=== PATIENT | female | born 1950 | race Caucasian/White ===

== ENCOUNTER 2019-06-16 09:13 | Day surgery (SDC) | payer MEDICARE ==
[2019-06-15 09:02] VITALS: BMI 32.2
[~2019-06-16 09:13] MED LIST: LACTATED RINGERS 1,000 ML IV SCH
[2019-06-16 09:49] VITALS: RESP 16; TEMP 98.5
[2019-06-16] MEDS ORDERED: LIDOCAINE 1% 20 ML VIAL (10MG/ML) FOR IV START INTRADERMA ONE (09:51)
[2019-06-16] MEDS ORDERED: hydrALAZINE HCL 20 MG/ML 1 ML VIAL ONE (10:03)
[2019-06-16] MEDS ORDERED: PROPOFOL 10 MG/ML 20 ML VIAL IV ONE (10:03)
--- NOTE | 2019-06-16 11:37 | P.PCN ---
Date of Procedure: 06/16/19 Description of Procedure: BRIEF HISTORY: Patient is a 68-year-old pleasant female scheduled for an elective colonoscopy as a part of history of polyps and family history of colon cancer. The patient reports family history of colon cancer in her mother at the age of 66. Reports polyps on last colonoscopy 6 years ago. She reports bowel movements have been loose at baseline since receiving radiation therapy for endometrial cancer. PROCEDURE PERFORMED: Colonoscopy with polypectomy. PREOPERATIVE DIAGNOSIS: History of colon polyps, family history of colon cancer. ESTIMATED BLOOD LOSS: Minimal. IV sedation per Anesthesia. PROCEDURE: After informed consent was obtained, the patient, was brought into the endoscopy unit. IV sedation was administered by Anesthesia under continuous monitoring. Digital rectal examination was normal. Initially the Olympus CF-190 flexible video colonoscope was then inserted in the rectum, gradually advanced into the cecum without any difficulty. Careful examination was performed as the scope was gradually being withdrawn. Ileocecal valve and the appendiceal orifice were visualized and appeared normal. Prep was excellent. Mucosa of the cecum, ascending colon, transverse colon, descending colon, sigmoid colon, and rectum appeared normal. 2 diminutive cecal polyps removed with forceps polypectomy measuring 2 mm in size. 5 polyps removed from the transverse colon ranging in size from 2 mm to 11 mm, one removed in piecemeal fashion, WITH cold snare polypectomy. 5 descending colon polyps measuring in size from 2 mm to 8 mm removed with cold snare polypectomy. 2 sigmoid polyps measuring 6 mm and 8 mm removed with cold snare polypectomy and hot snare polypectomy respectively. The patient tolerated the procedure well. IMPRESSION: 14 colonic polyps measuring in size from 2 mm to 11 mm removed from the cecum, transverse colon, descending colon and sigmoid colon (please see body of report for full details). RECOMMENDATIONS: Findings of this examination were discussed with the patient and her daughter. Okay to resume diet. Hold any anticoagulation for the next 48 hours okay to resume other medications. Would recommend repeating colonoscopy in one year given piecemeal resection of colonic polyp.
[2019-06-16 12:20] VITALS: PULSE 56
[2019-06-16 12:40] VITALS: BP 169/67
== END 2019-06-16 13:24 | disposition home or self-care (01) ==
LOC: ORWHC2ENDO 09:13
PROVIDERS: ATTEND Internal Medicine
DX: D12.0 Benign neoplasm of cecum (principal); D12.4 Benign neoplasm of descending colon; D12.3 Benign neoplasm of transverse colon; Z86.010 Personal history of colon polyps; Z80.0 Family history of malignant neoplasm of digestive organs; C54.1 Malignant neoplasm of endometrium; I10 Essential (primary) hypertension; K21.9 Gastro-esophageal reflux disease without esophagitis; Z88.1 Allergy status to other antibiotic agents; Z88.5 Allergy status to narcotic agent; Z88.8 Allergy status to other drugs, medicaments and biological substances; Z79.82 Long term (current) use of aspirin; Z79.899 Other long term (current) drug therapy
CPT/HCPCS: 88305; 45380; 45385; J0360; J2704

== ENCOUNTER 2022-01-24 09:08 | Day surgery (SDC) | payer MEDICARE ==
[~2022-01-24 09:08] MED LIST changes: +ALPRAZolam 0.25 MG TAB PO PRN; -LACTATED RINGERS 1,000 ML IV SCH
[2022-01-24 09:43] LABS: Mean Platelet Volume 6.9; Platelet Count 140 k/uL (150-450)
[2022-01-24 10:00] VITALS: PULSE 60; TEMP 97.8
[2022-01-24 10:06] LABS: INR 1.1 (<1.2)
[2022-01-24 10:22] VITALS: BP 143/62; RESP 18
--- NOTE | 2022-01-24 10:44 | CT ---
EXAMINATION TYPE: CT discontinued procedure DATE OF EXAM: 01/24/2022 COMPARISON: None HISTORY: Liver Biopsy CT DLP: 437 mGycm Automated exposure control for dose reduction was used. FINDINGS: Preliminary imaging demonstrated diffuse ascites. The procedure and therefore could not be performed but was discontinued. IMPRESSION: DISCONTINUED PROCEDURE.
== END 2022-01-24 11:11 | disposition home or self-care (01) ==
LOC: RADPROMAIN 09:08
PROVIDERS: ATTEND Surgery
DX: R18.8 Other ascites (principal); K74.60 Unspecified cirrhosis of liver
CPT/HCPCS: 36415; 76380; 85049; 85610

== ENCOUNTER 2022-02-08 08:53 | Day surgery (SDC) | payer MEDICARE ==
[2022-02-08 09:11] VITALS: RESP 16; TEMP 97.5
[2022-02-08 10:04] LABS: INR 1.2 (<1.2); Prothrombin Time 12.2 sec (9.0-12.0)
[2022-02-08 10:23] LABS: Platelet Count 99 k/uL (150-450)
--- NOTE | 2022-02-08 12:25 | US ---
Ultrasound-guided paracentesis. DATE OF EXAM: 02/08/2022 CLINICAL HISTORY: Ascites The procedure was discussed with the patient. The risks, complications, benefits, and alternatives we re discussed and any questions were answered. Informed consent was obtained. The patient was placed s upine on the ultrasound table and prepped and draped in the usual sterile fashion. All elements of maximal barrier technique were utilized. Under ultrasound guidance, access into the right lower quadrant was obtained, via the paracentesis catheter system and direct ultrasound guidanc e. Approximately 9 liters of straw-colored fluid was removed. The patient was stable throughout the proc edure and remained stable upon discharge from Department of Radiology. IMPRESSION: Successful paracentesis under ultrasound guidance.
--- NOTE | 2022-02-08 12:26 | US ---
EXAMINATION TYPE: US biopsy liver DATE OF EXAM: 02/08/2022 COMPARISON: NONE HISTORY: Liver cirrhosis The procedure was explained to the patient. The risks, complications, benefits, and alternatives wer e discussed and any questions were answered. Informed consent was obtained. Patient was placed supi ne on the ultrasound table and prepped and draped in the usual sterile fashion. All elements of maximal barrier and sterile technique utilized. Utilizing ultrasound guidance, an 18 gauge core biopsy needle access into the left lobe of the liver was achieved and a single 18 gauge core sample was obtained. The patient was stable throughout the procedure and remained stable upon discharge. IMPRESSION: 1. Successful ultrasound-guided core biopsy of the liver.
[2022-02-08] MEDS: ALBUMIN HUMAN 25% 50 ML in EMPTY BAG 1 BAG IVPB SCH ×4 (12:28→13:23)
[2022-02-08 14:24] VITALS: PULSE 60
[2022-02-08 15:39] VITALS: BP 104/51
== END 2022-02-08 15:45 | disposition home or self-care (01) ==
LOC: RADPROMAIN 08:53 → EDSTATUS 09:00 → RADPROMAIN 15:45
PROVIDERS: ATTEND Surgery
DX: K74.60 Unspecified cirrhosis of liver (principal); R18.8 Other ascites; Z88.1 Allergy status to other antibiotic agents
CPT/HCPCS: 85049; 85610; 88313; 88307; 36415; 47000; 49083; P9047; 76942

== ENCOUNTER 2023-05-09 19:41 | Inpatient (IN) | payer MEDICARE ==
[2023-05-09] MEDS ORDERED: SODIUM CHLORIDE 0.9% 1,000 ML IV STA (20:29)
--- NOTE | 2023-05-09 20:51 | ED ---
Weakness HPI - General Chief complaint: Weakness Stated complaint: Dehydrated Time Seen by Provider: 05/09/23 20:29 Source: family, RN notes reviewed, old records reviewed, Caregiver Mode of arrival: ambulatory Limitations: no limitations - History of Present Illness Initial comments: This is a 70-year-old female to the emergency department presents today for evaluation of weakness dehydration not febrile, family concerned of elevated ammonia level is not taking medications at home as directed. Patient's been acting increasingly weak and appropriate per family and patient is very weak here in the ER not contribute to history history obtained from family at bedside MD Complaint: generalized weakness -: days(s) Location: generalized Severity: moderate Severity scale (1-10): 7 Quality: tingling Consistency: constant Improves with: none Worsens with: none Context: recent illness, history of similar Associated Symptoms: denies other symptoms - Related Data Home Medications Medication Instructions Recorded Confirmed Omeprazole [PriLOSEC] 20 mg PO DAILY 06/15/19 05/09/23 Ferrous Sulfate [Feosol] 325 mg PO MOWEFR 01/10/22 05/09/23 Metoprolol Tartrate [Lopressor] 50 mg PO DAILY 01/10/22 05/09/23 Spironolactone [Aldactone] 100 mg PO DAILY 01/10/22 05/09/23 Furosemide [Lasix] 40 mg PO DAILY 05/09/23 05/09/23 Lactulose 20 gm PO TID PRN 05/09/23 05/09/23 Loperamide [Imodium] 2 mg PO DAILY 05/09/23 05/09/23 Magnesium 200 mg PO DAILY 05/09/23 05/09/23 Allergies Allergy/AdvReac Type Severity Reaction Status Date / Time hydromorphone [From Dilaudid] Allergy Severe Rash/Hives Verified 05/09/23 22:12 cephalexin [From Keflex] Allergy Rash/Hives Verified 05/09/23 22:12 guaifenesin [From Entex LA] Allergy Rash/Hives Verified 05/09/23 22:12 levofloxacin [From Levaquin] Allergy Rash/Hives Verified 05/09/23 22:12 phenylephrine [From Entex LA] Allergy Rash/Hives Verified 05/09/23 22:12 phenylpropanolamine Allergy Rash/Hives Verified 05/09/23 22:12 [From Entex LA] Review of Systems ROS Statement: Those systems with pertinent positive or pertinent negative responses have been documented in the HPI. ROS Other: All systems not noted in ROS Statement are negative. Past Medical History Past Medical History: Cancer, GERD/Reflux, Hypertension, Liver Disease Additional Past Medical History / Comment(s): feet swelling, hx. endometrial cancer 2001, frequent diarrhea for months, hx. colon polyps, slight murmur per pt-no tx. for History of Any Multi-Drug Resistant Organisms: None Reported Past Surgical History: Cholecystectomy, Hysterectomy, Joint Replacement, Orthopedic Surgery Additional Past Surgical History / Comment(s): colonoscopies, maryellen. hip replaced, left wrist surg., left foot surg., arthroscopy left knee, right knee surg, large volume paracentesis Past Anesthesia/Blood Transfusion Reactions: No Reported Reaction Additional Past Anesthesia/Blood Transfusion Reaction / Comment(s): usually slow to wake up Smoking Status: Never smoker Past Alcohol Use History: None Reported Past Drug Use History: None Reported - Past Family History Mother Family Medical History: No Reported History Father Family Medical History: Coronary Artery Disease (CAD) General Exam Limitations: no limitations, altered mental status General appearance: alert, in no apparent distress, lethargic Head exam: Present: atraumatic, normocephalic, normal inspection Eye exam: Present: normal appearance, PERRL, EOMI. Absent: scleral icterus, co njunctival injection, periorbital swelling ENT exam: Present: normal exam, mucous membranes dry Neck exam: Present: normal inspection. Absent: tenderness, meningismus, lymphadenopathy Respiratory exam: Present: normal lung sounds bilaterally. Absent: respiratory distress, wheezes, rales, rhonchi, stridor Cardiovascular Exam: Present: regular rate, normal rhythm, normal heart sounds. Absent: systolic murmur, diastolic murmur, rubs, gallop, clicks GI/Abdominal exam: Present: soft, normal bowel sounds. Absent: distended, tenderness, guarding, rebound, rigid Extremities exam: Present: normal inspection, full ROM, normal capillary refill. Absent: tenderness, pedal edema, joint swelling, calf tenderness Back exam: Present: normal inspection Neurological exam: Present: alert, oriented X3, CN II-XII intact Psychiatric exam: Present: normal affect, normal mood Skin exam: Present: warm, dry, intact, normal color. Absent: rash Course Vital Signs 07/20/23 07/20/23 07/21/23 19:55 20:29 00:00 Temperature 98.1 F Pulse Rate 77 81 Pulse Rate [ 80 Supine Pulse Oximetery] Respiratory 16 16 Rate Blood Pressure 161/89 154/80 O2 Sat by Pulse 100 95 Oximetry 05/10/23 05/10/23 05/10/23 03:37 05:56 06:05 Temperature 97.9 F 97.9 F Pulse Rate 80 80 Pulse Rate [ Supine Pulse Oximetery] Respiratory 16 16 16 Rate Blood Pressure 105/50 105/50 O2 Sat by Pulse 100 100 Oximetry - Reevaluation(s) Reevaluation #1: 05/09/23 22:58 Medical record is reviewed Reevaluation #2: 05/09/23 22:59 Patient symptoms unchanged Reevaluation #3: 05/09/23 22:59 Patient informed of results and questions answered Reevaluation #4: 05/09/23 22:59 Was pt. sent in by a medical professional or institution? @ -no Did you speak to anyone other than the patient for history? @ -no Did you review nursing and triage notes? @ -agree Were old charts reviewed? @ -yes Differential Diagnosis? @ -prior EKG interpreted by me (3pts min.)? @ -yes X-rays interpreted by me (1pt min.)? @ -yes CT interpreted by me (1pt min.)? @ -no U/S interpreted by me (1pt. min.)? @ -no What testing was considered but not performed? (CT, X-rays, U/S, labs)? Why? @ -no What meds were considered but not given? Why? @ -no Did you discuss the management of the patient with other professionals? @ -no Did you reconcile home meds? @ -no Was smoking cessation discussed for >3mins.? @ -no Was critical care preformed (if so, how long)? @ -no Were there social determinants of health that impacted care today? How? (Homelessness, low income, unemployed, alcoholism, drug addiction, transportation, low edu. Level, literacy, decrease access to med. care, [facility], rehab)? @ -no Was there de-escalation of care discussed even if they declined? (Discuss DNR or withdrawal of care, Hospice)? @ -no What co-morbidities impacted this encounter? (DM, HTN, Smoking, COPD, CAD, Cancer, CVA, Hep., AIDS, mental health diagnosis, sleep apnea, morbid obesity)? @ -no Was patient admitted / discharged? @ -72 female not showing much improvement with hydration here in the ER. Patient does have liver disease elevated ammonia altered mental status weakness and dehydration. Patient will be admitted, no prior lab values will have nephrology consult secondary to kidney injury and monitoring of mental status Admitted Undiagnosed new problem with uncertain prognosis? @ -no Drug Therapy requiring intensive monitoring for toxicity (Heparin, Nitro, Insulin, Cardizem)? @ -no Were any procedures done? @ -no Diagnosis/symptom? @ -Weakness, dehydration Acute, or Chronic, or Acute on Chronic? @ -acute Uncomplicated (without systemic symptoms) or Complicated (systemic symptoms)? @ -complicated Side effects of treatment? @ -no Exacerbation, Progression, or Severe Exacerbation] @ -no Poses a threat to life or bodily function? @ -no Reevaluation #5: 05/09/23 22:59 Differential Altered Mental Status: Hypoglycemia, DKA, hypercapnia, ETOH, overdose, CO poisoning, trauma, myxedema coma, HTN encephalopathy, infection, encephalitis, psychosis, intercranial hemorrhage, hepatic encephalopathy, meningitis, CVA, this is not meant to be an all-inclusive list Differential Weakness: Hypoglycemia, shock, sepsis, hyponatremia, anemia, infection, NM, ETOH, adverse medicine reaction, overdose, stroke, this is not meant to be an all-inclusive list. - Consultations Consultation #1: Spoke with H regarding admission there agreeable EKG Findings - EKG Comments: EKG Findings:: EKG is sinus 66 NH 129 QRS 75 QTC 423 Medical Decision Making - Medical Decision Making 72 female not showing much improvement with hydration here in the ER. Patient does have liver disease elevated ammonia altered mental status weakness and dehydration. Patient will be admitted, no prior lab values will have nephrology consult secondary to kidney injury and monitoring of mental status - Lab Data Result diagrams: 05/13/23 11:23 05/14/23 05:28 Lab Results 05/09/23 05/09/23 05/09/23 Range/Units 19:45 19:45 19:45 WBC (3.8-10.6) k/uL RBC (3.80-5.40) m/uL Hgb (11.4-16.0) gm/dL Hct (34.0-46.0) % MCV (80.0-100.0) fL MCH (25.0-35.0) pg MCHC (31.0-37.0) g/dL RDW (11.5-15.5) % Plt Count (150-450) k/uL MPV Neutrophils % % Lymphocytes % % Monocytes % % Eosinophils % % Basophils % % Neutrophils # (1.3-7.7) k/uL Lymphocytes # (1.0-4.8) k/uL Monocytes # (0-1.0) k/uL Eosinophils # (0-0.7) k/uL Basophils # (0-0.2) k/uL Manual Slide Review Hypochromasia Poikilocytosis (manual PT 11.3 (9.0-12.0) sec INR 1.1 (<1.2) APTT 23.2 (22.0-30.0) sec Sodium 133 L (137-145) mmol/L Potassium 4.3 (3.5-5.1) mmol/L Chloride 104 (98-107) mmol/L Carbon Dioxide 19 L (22-30) mmol/L Anion Gap 10 mmol/L BUN 68 H (7-17) mg/dL Creatinine 2.23 H (0.52-1.04) mg/dL Est GFR (CKD-EPI)AfAm 25 (>60 ml/min/1.73 sqM) Est GFR (CKD-EPI)NonAf 21 (>60 ml/min/1.73 sqM) Glucose 135 H (74-99) mg/dL Plasma Lactic Acid Richard 1.5 (0.7-2.0) mmol/L Calcium 8.3 L (8.4-10.2) mg/dL Phosphorus 4.2 (2.5-4.5) mg/dL Magnesium 2.1 (1.6-2.3) mg/dL Total Bilirubin 0.8 (0.2-1.3) mg/dL AST 23 (14-36) U/L ALT 19 (4-34) U/L Alkaline Phosphatase 106 (38-126) U/L Ammonia 30 H (<30) umol/L Troponin I (0.000-0.034) ng/mL Total Protein 6.0 L (6.3-8.2) g/dL Albumin 2.9 L (3.5-5.0) g/dL 05/09/23 05/09/23 Range/Units 19:45 20:45 WBC 5.1 (3.8-10.6) k/uL RBC 3.52 L (3.80-5.40) m/uL Hgb 9.9 L (11.4-16.0) gm/dL Hct 30.0 L (34.0-46.0) % MCV 85.1 (80.0-100.0) fL MCH 28.1 (25.0-35.0) pg MCHC 33.1 (31.0-37.0) g/dL RDW 15.4 (11.5-15.5) % Plt Count 94 L (150-450) k/uL MPV 7.6 Neutrophils % 81 % Lymphocytes % 10 % Monocytes % 7 % Eosinophils % 1 % Basophils % 0 % Neutrophils # 4.1 (1.3-7.7) k/uL Lymphocytes # 0.5 L (1.0-4.8) k/uL Monocytes # 0.3 (0-1.0) k/uL Eosinophils # 0.1 (0-0.7) k/uL Basophils # 0.0 (0-0.2) k/uL Manual Slide Review Performed Hypochromasia Slight Poikilocytosis (manual Present PT (9.0-12.0) sec INR (<1.2) APTT (22.0-30.0) sec Sodium (137-145) mmol/L Potassium (3.5-5.1) mmol/L Chloride (98-107) mmol/L Carbon Dioxide (22-30) mmol/L Anion Gap mmol/L BUN (7-17) mg/dL Creatinine (0.52-1.04) mg/dL Est GFR (CKD-EPI)AfAm (>60 ml/min/1.73 sqM) Est GFR (CKD-EPI)NonAf (>60 ml/min/1.73 sqM) Glucose (74-99) mg/dL Plasma Lactic Acid Richard (0.7-2.0) mmol/L Calcium (8.4-10.2) mg/dL Phosphorus (2.5-4.5) mg/dL Magnesium (1.6-2.3) mg/dL Total Bilirubin (0.2-1.3) mg/dL AST (14-36) U/L ALT (4-34) U/L Alkaline Phosphatase (38-126) U/L Ammonia (<30) umol/L Troponin I <0.012 (0.000-0.034) ng/mL Total Protein (6.3-8.2) g/dL Albumin (3.5-5.0) g/dL Disposition Clinical Impression: Dehydration, Weakness, Hyperammonemia, Altered mental status, Acute kidney injury, Ascites, Cirrhosis of liver Disposition: ADMITTED IP TO THIS HOSP Condition: Fair Is patient prescribed a controlled substance at d/c from ED?: No Time of Disposition: 23:00
[2023-05-09 21:19] LABS: Lactic Acid, Venous 1.5 mmol/L (0.7-2.0)
[2023-05-09 21:20] LABS: ALT 19 U/L (4-34); AST 23 U/L (14-36); African American GFR (CKD) 25 (>60 ml/min/1.73 sqM); Albumin 2.9 g/dL (3.5-5.0); Alkaline Phosphatase 106 U/L (38-126); Anion Gap 10 mmol/L; Blood Urea Nitrogen 68 mg/dL (7-17); Calcium 8.3 mg/dL (8.4-10.2); Carbon Dioxide 19 mmol/L (22-30); Chloride 104 mmol/L (98-107); Glucose 135 mg/dL (74-99); Magnesium 2.1 mg/dL (1.6-2.3); Non-African American GFR(CKD) 21 (>60 ml/min/1.73 sqM); Phosphorus 4.2 mg/dL (2.5-4.5); Potassium 4.3 mmol/L (3.5-5.1); Sodium 133 mmol/L (137-145); Total Bilirubin 0.8 mg/dL (0.2-1.3)
[2023-05-09 21:26] LABS: INR 1.1 (<1.2); Partial Thromboplastin Time 23.2 sec (22.0-30.0); Prothrombin Time 11.3 sec (9.0-12.0)
[2023-05-09 22:12] LABS: Basophils % (A) 0 %; Eosinophils # (A) 0.1 k/uL (0-0.7); Eosinophils % (A) 1 %; HGB 9.9 gm/dL (11.4-16.0); Hypochromasia Slight; Lymphocytes # (A) 0.5 k/uL (1.0-4.8); Lymphocytes % (A) 10 %; MCH 28.1 pg (25.0-35.0); MCHC 33.1 g/dL (31.0-37.0); MCV 85.1 fL (80.0-100.0); Mean Platelet Volume 7.6; Monocytes # (A) 0.3 k/uL (0-1.0); Monocytes % (A) 7 %; Neutrophils # (A) 4.1 k/uL (1.3-7.7); Neutrophils % (A) 81 %; RBC 3.52 m/uL (3.80-5.40); RDW 15.4 % (11.5-15.5); WBC 5.1 k/uL (3.8-10.6)
[2023-05-09] MEDS ORDERED: NALOXONE 0.4 MG/ML 1 ML VIAL IV PRN (22:55)
[2023-05-09] MEDS ORDERED: AMPICILLIN-SULBACTAM 3 GM in SODIUM CHLORIDE 0.9% 100 ML IVPB STA ×2 (22:57→23:02)
[2023-05-10] MEDS: SODIUM CHLORIDE 0.9% 1,000 ML IV SCH ×2 (00:05→14:34)
[2023-05-10 00:13] LABS: Poikilocytosis (M) Present
[2023-05-10 00:14] LABS: Platelet Count 94 k/uL (150-450)
[2023-05-10 06:42] LABS: Basophils % (A) 0 %; Eosinophils # (A) 0.1 k/uL (0-0.7); Eosinophils % (A) 2 %; HCT 31.1 % (34.0-46.0); HGB 10.1 gm/dL (11.4-16.0); Hypochromasia Moderate; Lymphocytes # (A) 0.7 k/uL (1.0-4.8); Lymphocytes % (A) 16 %; MCH 28.7 pg (25.0-35.0); MCHC 32.6 g/dL (31.0-37.0); Monocytes # (A) 0.3 k/uL (0-1.0); Monocytes % (A) 8 %; Neutrophils % (A) 71 %; Platelet Count 101 k/uL (150-450); RBC 3.53 m/uL (3.80-5.40); RDW 15.6 % (11.5-15.5); WBC 4.2 k/uL (3.8-10.6)
[2023-05-10 06:51] LABS: ALT 20 U/L (4-34); AST 27 U/L (14-36); African American GFR (CKD) 31 (>60 ml/min/1.73 sqM); Albumin 2.7 g/dL (3.5-5.0); Alkaline Phosphatase 112 U/L (38-126); Anion Gap 9 mmol/L; Blood Urea Nitrogen 64 mg/dL (7-17); Calcium 8.2 mg/dL (8.4-10.2); Carbon Dioxide 17 mmol/L (22-30); Chloride 108 mmol/L (98-107); Glucose 105 mg/dL (74-99); Non-African American GFR(CKD) 26 (>60 ml/min/1.73 sqM); Phosphorus 3.9 mg/dL (2.5-4.5); Sodium 134 mmol/L (137-145); Total Bilirubin 0.9 mg/dL (0.2-1.3); Total Protein 5.8 g/dL (6.3-8.2)
--- NOTE | 2023-05-10 07:27 | US ---
EXAMINATION TYPE: US abdomen limited DATE OF EXAM: 05/10/2023 COMPARISON: NONE CLINICAL INDICATION: Female, 72 years old with history of evaluate ascites for paracentesis; distened abd Severe amount of fluid seen within all four quadrants of abdomen. IMPRESSION: Four-quadrant ascites.
--- NOTE | 2023-05-10 09:00 | P.CONS ---
History of Present Illness - Reason for Consult Consult date: 05/10/23 Hyperammonemia Requesting physician: Kleber Guerin - Chief Complaint Weakness - History of Present Illness This is a 72-year-old female with past medical history of liver cirrhosis, GERD, hypertension, and endometrial cancer who presented to the emergency department with increased weakness and confusion. Patient is a very poor historian but was able to tell us that she was diagnosed with liver cirrhosis approximately 2 years ago. She does get regular paracentesis in [place] last one 2 weeks ago where they removed about 10.5 liters. She follows with [facility] Dr. Rivero. She states she is unsure what her cirrhosis of the liver is from. States that she is supposed to be on lactulose however she does not take it at home and states that she will not take it here. Patient was admitted for acute kidney injury and hyperammonemia. Gastroenterology was consulted for hyperammonemia. Currently taking spironolactone 100 mg daily and Lasix 40 mg daily. Admitting labs WBC 5.1 hemoglobin 9.9 hematocrit 30 platelet count 94,000 INR 1.1 sodium 133 potassium 4.3 BUN 68 creatinine 2.23. Total bilirubin 0.8 AST 23 ALT 19 alkaline phosphatase 106 ammonia 30 Review of Systems REVIEW OF SYSTEMS: CARDIOPULMONARY: No chest pain or shortness of breath. Gastrointestinal: Denies abdominal pain. Has abdominal distention. Gets regular paracentesis. No nausea or vomiting. No hematemesis, coffee-ground emesis. No rectal bleeding, or melena. GENITOURINARY: No dysuria or hematuria. MUSCULOSKELETAL: Reports normal range of motion. SKIN: No rashes. No jaundice. ENDOCRINE: No chills, fevers. No excessive weight gain or loss. No polydipsia or polyuria. PSYCHIATRIC: Unremarkable. NEUROLOGY: Seems somewhat confused but able still to give a decent history. Denies dizziness, headache. ENT: Vision unremarkable. CONSTITUTIONAL: No recent weight loss. No fever, chills, night sweats. Past Medical History Past Medical History: Cancer, GERD/Reflux, Hypertension, Liver Disease Additional Past Medical History / Comment(s): feet swelling, hx. endometrial cancer 2001, frequent diarrhea for months, hx. colon polyps, slight murmur per pt-no tx. for History of Any Multi-Drug Resistant Organisms: None Reported Past Surgical History: Cholecystectomy, Hysterectomy, Joint Replacement, Orthopedic Surgery Additional Past Surgical History / Comment(s): colonoscopies, maryellen. hip replaced, left wrist surg., left foot surg., arthroscopy left knee, right knee surg, large volume paracentesis Past Anesthesia/Blood Transfusion Reactions: No Reported Reaction Additional Past Anesthesia/Blood Transfusion Reaction / Comm: usually slow to wake up Smoking Status: Never smoker Past Alcohol Use History: None Reported Past Drug Use History: None Reported - Past Family History Mother Family Medical History: No Reported History Father Family Medical History: Coronary Artery Disease (CAD) Medications and Allergies Home Medications Medication Instructions Recorded Confirmed Type Omeprazole [PriLOSEC] 20 mg PO DAILY 06/15/19 05/09/23 History Ferrous Sulfate [Feosol] 325 mg PO MOWEFR 01/10/22 05/09/23 History Metoprolol Tartrate [Lopressor] 50 mg PO DAILY 01/10/22 05/09/23 History Spironolactone [Aldactone] 100 mg PO DAILY 01/10/22 05/09/23 History Furosemide [Lasix] 40 mg PO DAILY 05/09/23 05/09/23 History Lactulose 20 gm PO TID PRN 05/09/23 05/09/23 History Loperamide [Imodium] 2 mg PO DAILY 05/09/23 05/09/23 History Magnesium 200 mg PO DAILY 05/09/23 05/09/23 History Allergies Allergy/AdvReac Type Severity Reaction Status Date / Time hydromorphone [From Dilaudid] Allergy Severe Rash/Hives Verified 05/09/23 22:12 cephalexin [From Keflex] Allergy Rash/Hives Verified 05/09/23 22:12 guaifenesin [From Entex LA] Allergy Rash/Hives Verified 05/09/23 22:12 levofloxacin [From Levaquin] Allergy Rash/Hives Verified 05/09/23 22:12 phenylephrine [From Entex LA] Allergy Rash/Hives Verified 05/09/23 22:12 phenylpropanolamine Allergy Rash/Hives Verified 05/09/23 22:12 [From Entex LA] Physical Exam Vitals: Vital Signs Temp Pulse Pulse Resp BP Pulse Ox 05/10/23 06:05 97.9 F 80 16 105/50 100 05/10/23 05:56 97.9 F 80 16 105/50 100 05/10/23 03:37 16 05/10/23 00:00 81 16 154/80 95 05/09/23 20:29 80 05/09/23 19:55 98.1 F 77 16 161/89 100 Intake and Output 05/09/23 05/09/23 05/10/23 14:59 22:59 06:59 Other: Voiding Method Toilet Diaper Incontinent # Voids 1 # Bowel Movements 1 Weight 63.503 kg General appearance: The patient is alert, oriented, appears in no acute distress. HET: Head is normocephalic and atraumatic. Conjunctiva pink. Sclera anicteric. Neck: Supple without lymphadenopathy. Trachea midline. Heart: S1 S2. Regular rate and rhythm. Lungs: Clear to auscultation. Abdomen: Soft, distended with ascites. No guarding or rigidity. Skin: No rashes. No jaundice. Extremities: Normal skin color and turgor. No pedal edema. Neurological: No focal deficits. Alert and oriented. Results CBC & Chem 7: 05/10/23 06:26 05/10/23 06:26 Labs: Abnormal Lab Results - Last 24 Hours (Table) 05/09/23 05/09/23 05/09/23 Range/Units 19:45 19:45 20:45 RBC 3.52 L (3.80-5.40) m/uL Hgb 9.9 L (11.4-16.0) gm/dL Hct 30.0 L (34.0-46.0) % RDW (11.5-15.5) % Plt Count 94 L (150-450) k/uL Lymphocytes # 0.5 L (1.0-4.8) k/uL Sodium 133 L (137-145) mmol/L Carbon Dioxide 19 L (22-30) mmol/L BUN 68 H (7-17) mg/dL Creatinine 2.23 H (0.52-1.04) mg/dL Glucose 135 H (74-99) mg/dL Calcium 8.3 L (8.4-10.2) mg/dL Ammonia 30 H (<30) umol/L Total Protein 6.0 L (6.3-8.2) g/dL Albumin 2.9 L (3.5-5.0) g/dL 07/21/23 Range/Units 06:26 RBC 3.53 L (3.80-5.40) m/uL Hgb 10.1 L (11.4-16.0) gm/dL Hct 31.1 L (34.0-46.0) % RDW 15.6 H (11.5-15.5) % Plt Count 101 L (150-450) k/uL Lymphocytes # 0.7 L (1.0-4.8) k/uL Sodium (137-145) mmol/L Carbon Dioxide (22-30) mmol/L BUN (7-17) mg/dL Creatinine (0.52-1.04) mg/dL Glucose (74-99) mg/dL Calcium (8.4-10.2) mg/dL Ammonia (<30) umol/L Total Protein (6.3-8.2) g/dL Albumin (3.5-5.0) g/dL Comments: Limited ultrasound reporting 4 quadrant large amount ascites Assessment and Plan (1) Hyperammonemia Narrative/Plan: This is a 72-year-old female with a past medical history of cirrhosis of the liver, unknown cause. She follows with a specialist out a [facility]. She had a liver biopsy done 02/08/2022 with specimen reporting consistent with cirrhosis. She is supposed to be taking lactulose 3 times a day however she states she does not like and does not take it at home. Elevated ammonia secondary to underlying cirrhosis of the liver and secondary to medication noncompliance. Discussed with patient importance of taking lactulose, will be scheduled as ordered per home meds 20 g 3 times a day. Current Visit: Yes Status: Acute Code(s): E72.20 - DISORDER OF UREA CYCLE METABOLISM, UNSPECIFIED SNOMED Code(s): 7973347 (2) Ascites Narrative/Plan: Ultrasound ordered for assessment of ascites, consult to interventional radio logy for paracentesis Current Visit: Yes Status: Acute Code(s): R18.8 - OTHER ASCITES SNOMED Code(s): 042953928 (3) Cirrhosis of liver Current Visit: Yes Status: Acute Code(s): K74.60 - UNSPECIFIED CIRRHOSIS OF LIVER SNOMED Code(s): 11724250 (4) Acute kidney injury Current Visit: Yes Status: Acute Code(s): N17.9 - ACUTE KIDNEY FAILURE, UNSPECIFIED SNOMED Code(s): 10196019 Plan: 1. Continue symptomatic and supportive care 2. Lactulose 20 g 3 times a day ordered 3. Low-sodium diet 4. Ultrasound ordered to assess for ascites 5. Interventional radiology consulted, fluid studies and cytology ordered 6. Repeat ammonia level tomorrow 7. Diuretics per recommendations from nephrology, as patient currently has acute kidney injury 8. 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 If further evaluation by gastroenterology is required the patient will need transfer as per the primary team's discretion. Dr. Alexsander Izaguirre I agree with the dictator's note, documented as a scribe by Tiara Rincon.
--- NOTE | 2023-05-10 13:20 | US ---
Ultrasound-guided paracentesis. DATE OF EXAM: 05/10/2023 CLINICAL HISTORY: Ascites The procedure was discussed with the patient. The risks, complications, benefits, and alternatives we re discussed and any questions were answered. Informed consent was obtained. The patient was placed s upine on the ultrasound table and prepped and draped in the usual sterile fashion. All elements of maximal barrier technique were utilized. Under ultrasound guidance, access into the right lower quadrant was obtained, via the paracentesis catheter system and direct ultrasound guidanc e. Approximately 9.9 liters of straw-colored fluid was removed. The patient was stable throughout the pr ocedure and remained stable upon discharge from Department of Radiology. IMPRESSION: Successful paracentesis under ultrasound guidance.
--- NOTE | 2023-05-10 13:31 | P.HPIM ---
History of Present Illness H&P Date: 05/10/23 History of present illness; patient is a 72-year-old lady with past medical significant for liver cirrhosis, GERD, hypertension, and endometrial cancer who presented to the ER for increasing confusion and weakness. Patient was diagnosed with liver cirrhosis at the [facility] and follows up with hepatology there. Patient gets regular paracentesis at [place], last one was 2 weeks ago. Patient was supposed to take lactulose 3 times daily at home but has been noncompliant with medications. Family has been noticing that the patient is more lethargic and confused. No complain the fever or chills at home. No complaint of chest pain or shortness of breath. Denies any abdominal pain. Because of this worsening confusion, patient came to the ER Initial lab work done in the ER showed WBC 5.1, hemoglobin 9.9, platelet 194, sodium 133, potassium 4.3, BUN 68, creatinine 2.23, glucose 135, calcium 8.3, ammonia 30, Patient was admitted to medicine service REVIEW OF SYSTEMS: CONSTITUTIONAL: No fever, no malaise, no fatigue. HEENT: No recent visual problems or hearing problems. Denied any sore throat. CARDIOVASCULAR: No chest pain, orthopnea, PND, no palpitations, no syncope. PULMONARY: No shortness of breath, no cough, no hemoptysis. GASTROINTESTINAL: No diarrhea, no nausea, no vomiting, no abdominal pain. NEUROLOGICAL: No headaches, no weakness, no numbness. HEMATOLOGICAL: Denies any bleeding or petechiae. GENITOURINARY: Denies any burning micturition, frequency, or urgency. MUSCULOSKELETAL/RHEUMATOLOGICAL: Denies any joint pain, swelling, or any muscle pain. ENDOCRINE: Denies any polyuria or polydipsia. The rest of the 14-point review of systems is negative. PHYSICAL EXAMINATION: GENERAL: The patient is alert and oriented x3, not in any acute distress. Well developed, well nourished. HEENT: Pupils are round and equally reacting to light. EOMI. No scleral icterus. No conjunctival pallor. Normocephalic, atraumatic. No pharyngeal erythema. No thyromegaly. CARDIOVASCULAR: S1 and S2 present. No murmurs, rubs, or gallops. PULMONARY: Chest is clear to auscultation, no wheezing or crackles. ABDOMEN: Soft, nontender, nondistended, normoactive bowel sounds. No palpable organomegaly. MUSCULOSKELETAL: No joint swelling or deformity. EXTREMITIES: No cyanosis, clubbing, or pedal edema. NEUROLOGICAL: Gross neurological examination did not reveal any focal deficits. SKIN: No rashes. Assessment and plan Hyperammonemia Ascites Cirrhosis of liver Acute kidney injury Monitor vital signs Monitor CBC Monitor CMP Continue telemetry monitoring Strict I's and O's, daily weights Avoid nephrotoxic agents Ordered ultrasound for paracentesis Continue lactulose. GI consulted Nephrology consulted Labs and medication were reviewed.. Continue same treatment. Continue with symptomatic treatment. Resume home medication. Monitor labs and vitals. DVT and GI prophylaxis. Further recommendations as per clinical course of the patient Dictation was produced using [employer] dictation software. please excuse any grammatical, word or spelling errors. Past Medical History Past Medical History: Cancer, GERD/Reflux, Hypertension, Liver Disease Additional Past Medical History / Comment(s): feet swelling, hx. endometrial cancer 2001, frequent diarrhea for months, hx. colon polyps, slight murmur per pt-no tx. for History of Any Multi-Drug Resistant Organisms: None Reported Past Surgical History: Cholecystectomy, Hysterectomy, Joint Replacement, Orthopedic Surgery Additional Past Surgical History / Comment(s): colonoscopies, maryellen. hip replaced, left wrist surg., left foot surg., arthroscopy left knee, right knee surg, large volume paracentesis Past Anesthesia/Blood Transfusion Reactions: No Reported Reaction Additional Past Anesthesia/Blood Transfusion Reaction / Comment(s): usually slow to wake up Smoking Status: Never smoker Past Alcohol Use History: None Reported Past Drug Use History: None Reported - Past Family History Mother Family Medical History: No Reported History Father Family Medical History: Coronary Artery Disease (CAD) Medications and Allergies Home Medications Medication Instructions Recorded Confirmed Type Omeprazole [PriLOSEC] 20 mg PO DAILY 06/15/19 05/09/23 History Ferrous Sulfate [Feosol] 325 mg PO MOWEFR 01/10/22 05/09/23 History Metoprolol Tartrate [Lopressor] 50 mg PO DAILY 01/10/22 05/09/23 History Spironolactone [Aldactone] 100 mg PO DAILY 01/10/22 05/09/23 History Furosemide [Lasix] 40 mg PO DAILY 05/09/23 05/09/23 History Lactulose 20 gm PO TID PRN 05/09/23 05/09/23 History Loperamide [Imodium] 2 mg PO DAILY 05/09/23 05/09/23 History Magnesium 200 mg PO DAILY 05/09/23 05/09/23 History Allergies Allergy/AdvReac Type Severity Reaction Status Date / Time hydromorphone [From Dilaudid] Allergy Severe Rash/Hives Verified 05/09/23 22:12 cephalexin [From Keflex] Allergy Rash/Hives Verified 05/09/23 22:12 guaifenesin [From Entex LA] Allergy Rash/Hives Verified 05/09/23 22:12 levofloxacin [From Levaquin] Allergy Rash/Hives Verified 05/09/23 22:12 phenylephrine [From Entex LA] Allergy Rash/Hives Verified 05/09/23 22:12 phenylpropanolamine Allergy Rash/Hives Verified 05/09/23 22:12 [From Entex LA] Physical Exam Vitals: Vital Signs Temp Pulse Pulse Resp BP BP Pulse Ox 05/10/23 08:08 100 05/10/23 07:00 97.7 F 81 16 148/73 100 05/10/23 06:05 97.9 F 80 16 105/50 100 05/10/23 05:56 97.9 F 80 16 105/50 100 05/10/23 03:37 16 05/10/23 00:00 81 16 154/80 95 05/09/23 20:29 80 05/09/23 19:55 98.1 F 77 16 161/89 100 Intake and Output 05/09/23 05/10/23 05/10/23 22:59 06:59 14:59 Other: Voiding Method Toilet Diaper Incontinent # Voids 1 # Bowel Movements 1 Weight 63.503 kg 63.503 kg Results CBC & Chem 7: 05/10/23 06:26 05/10/23 06:26 Labs: Abnormal Lab Results - Last 24 Hours (Table) 05/09/23 05/09/23 05/09/23 Range/Units 19:45 19:45 20:45 RBC 3.52 L (3.80-5.40) m/uL Hgb 9.9 L (11.4-16.0) gm/dL Hct 30.0 L (34.0-46.0) % RDW (11.5-15.5) % Plt Count 94 L (150-450) k/uL Lymphocytes # 0.5 L (1.0-4.8) k/uL Sodium 133 L (137-145) mmol/L Chloride (98-107) mmol/L Carbon Dioxide 19 L (22-30) mmol/L BUN 68 H (7-17) mg/dL Creatinine 2.23 H (0.52-1.04) mg/dL Glucose 135 H (74-99) mg/dL Calcium 8.3 L (8.4-10.2) mg/dL Ammonia 30 H (<30) umol/L Total Protein 6.0 L (6.3-8.2) g/dL Albumin 2.9 L (3.5-5.0) g/dL 05/10/23 05/10/23 Range/Units 06:26 06:26 RBC 3.53 L (3.80-5.40) m/uL Hgb 10.1 L (11.4-16.0) gm/dL Hct 31.1 L (34.0-46.0) % RDW 15.6 H (11.5-15.5) % Plt Count 101 L (150-450) k/uL Lymphocytes # 0.7 L (1.0-4.8) k/uL Sodium 134 L (137-145) mmol/L Chloride 108 H (98-107) mmol/L Carbon Dioxide 17 L (22-30) mmol/L BUN 64 H (7-17) mg/dL Creatinine 1.87 H (0.52-1.04) mg/dL Glucose 105 H (74-99) mg/dL Calcium 8.2 L (8.4-10.2) mg/dL Ammonia (<30) umol/L Total Protein 5.8 L (6.3-8.2) g/dL Albumin 2.7 L (3.5-5.0) g/dL Thrombosis Risk Factor Assmnt - Choose All That Apply Any of the Below Risk Factors Present?: Yes Each Factor Represents 1 point: Obesity (BMI >25), Swollen legs (current) Other Risk Factors: Yes Each Risk Factor Represents 2 Points: Age 61-74 years, Malignancy Other congenital or acquired thrombophilia - If yes, enter type in comment: No Thrombosis Risk Factor Assessment Total Risk Factor Score: 6 Thrombosis Risk Factor Assessment Level: High Risk
[2023-05-10] MEDS: LACTULOSE 20 GM/30 ML CUP PO SCH ×3 (14:23→20:12)
[2023-05-10] MEDS: ALBUMIN HUMAN 25% 50 ML in EMPTY BAG 1 BAG IVPB SCH ×4 (14:34→18:10)
[2023-05-10] MEDS: MORPHINE SULFATE 4 MG/ML SYRINGE IV PRN (20:34)
[2023-05-10 21:17] LABS: T. Protein, Body Fluid Source Paracentesis Fluid; Total Protein, Body Fluid 1310 mg/dL
[2023-05-10 22:03] LABS: Appearance,BF Slightly Cloudy (Clear)
[2023-05-11] MEDS: SODIUM CHLORIDE 0.9% 1,000 ML IV SCH (03:05)
[2023-05-11] MEDS: LACTULOSE 20 GM/30 ML CUP PO SCH ×3 (08:43→20:41)
[2023-05-11 11:04] LABS: ALT 18 U/L (4-34); AST 21 U/L (14-36); African American GFR (CKD) 41 (>60 ml/min/1.73 sqM); Albumin 3.1 g/dL (3.5-5.0); Albumin/Globulin Ratio 1.2; Alkaline Phosphatase 72 U/L (38-126); Anion Gap 12 mmol/L; Blood Urea Nitrogen 50 mg/dL (7-17); Calcium 8.2 mg/dL (8.4-10.2); Carbon Dioxide 15 mmol/L (22-30); Chloride 112 mmol/L (98-107); Globulin 2.6 g/dL; Glucose 151 mg/dL (74-99); Non-African American GFR(CKD) 36 (>60 ml/min/1.73 sqM); Potassium 3.5 mmol/L (3.5-5.1); Sodium 139 mmol/L (137-145); Total Bilirubin 0.8 mg/dL (0.2-1.3); Total Protein 5.7 g/dL (6.3-8.2)
[2023-05-11 11:17] LABS: Basophils % (A) 0 %; Eosinophils # (A) 0.1 k/uL (0-0.7); Eosinophils % (A) 1 %; HCT 30.9 % (34.0-46.0); HGB 9.6 gm/dL (11.4-16.0); Hypochromasia Marked; Lymphocytes # (A) 0.5 k/uL (1.0-4.8); Lymphocytes % (A) 8 %; MCH 28.1 pg (25.0-35.0); MCHC 31.2 g/dL (31.0-37.0); MCV 90.2 fL (80.0-100.0); Mean Platelet Volume 8.1; Monocytes # (A) 0.4 k/uL (0-1.0); Monocytes % (A) 6 %; Neutrophils # (A) 5.4 k/uL (1.3-7.7); Neutrophils % (A) 83 %; RBC 3.43 m/uL (3.80-5.40); RDW 15.6 % (11.5-15.5); WBC 6.5 k/uL (3.8-10.6)
[2023-05-11 12:23] LABS: Platelet Count 74 k/uL (150-450); Poikilocytosis (M) Present
[2023-05-11] MEDS: DEXTROSE 5% IN WATER 1,000 ML with SODIUM BICARB (1 MEQ/ML) 150 ML IV SCH (12:43)
--- NOTE | 2023-05-11 14:15 | P.PN ---
Subjective Progress Note Date: 05/11/23 Principal diagnosis: patient is a 72-year-old lady with past medical significant for liver cirrhosis, GERD, hypertension, and endometrial cancer who presented to the ER for increasi ng confusion and weakness. Patient was diagnosed with liver cirrhosis at the [facility] and follows up with hepatology there. Patient gets regular paracentesis at [place], last one was 2 weeks ago. Patient was supposed to take lactulose 3 times daily at home but has been noncompliant with medications. Family has been noticing that the patient is more lethargic and confused. No complain the fever or chills at home. No complaint of chest pain or shortness of breath. Denies any abdominal pain. Because of this worsening confusion, patient came to the ER Initial lab work done in the ER showed WBC 5.1, hemoglobin 9.9, platelet 194, sodium 133, potassium 4.3, BUN 68, creatinine 2.23, glucose 135, calcium 8.3, ammonia 30, Patient was admitted to medicine service 05/11. Patient seen and examined. Abdominal distention has improved. States she feels better REVIEW OF SYSTEMS: CONSTITUTIONAL: No fever, no malaise,. CARDIOVASCULAR: No chest pain, no palpitations, no syncope. PULMONARY: No shortness of breath, no cough, GASTROINTESTINAL: No diarrhea, no nausea, no vomiting, no abdominal pain. NEUROLOGICAL: No headaches, no weakness, PHYSICAL EXAMINATION: GENERAL: The patient is alert and oriented x3, not in any acute distress. Well developed, well nourished. HEENT: Pupils are round and equally reacting to light. EOMI. No scleral icterus. No conjunctival pallor. Normocephalic, atraumatic. No pharyngeal erythema. No thyromegaly. CARDIOVASCULAR: S1 and S2 present. No murmurs, rubs, or gallops. PULMONARY: Chest is clear to auscultation, no wheezing or crackles. ABDOMEN: Soft, nontender, nondistended, normoactive bowel sounds. No palpable organomegaly. MUSCULOSKELETAL: No joint swelling or deformity. EXTREMITIES: No cyanosis, clubbing, or pedal edema. NEUROLOGICAL: Gross neurological examination did not reveal any focal deficits. SKIN: No rashes. Assessment and plan Hyperammonemia Ascites Cirrhosis of liver Acute kidney injury Monitor vital signs Monitor CBC Monitor CMP Continue telemetry monitoring Strict I's and O's, daily weights Avoid nephrotoxic agents Status post paracentesis with removal of 9.9 L Continue lactulose. Continue IV fluids Nephrology following Labs and medication were reviewed.. Continue same treatment. Continue with symptomatic treatment. Resume home medication. Monitor labs and vitals. DVT and GI prophylaxis. Further recommendations as per clinical course of the patient Dictation was produced using [employer] dictation software. please excuse any grammatical, word or spelling errors. Objective - Vital Signs Vital signs: Vital Signs Temp 98.9 F 05/11/23 08:25 Pulse 76 05/11/23 08:25 Resp 14 05/11/23 08:25 BP 105/59 05/11/23 08:25 Pulse Ox 99 05/11/23 08:25 FiO2 21 05/11/23 08:21 Intake & Output 05/10/23 05/11/23 05/11/23 18:59 06:59 18:59 Intake Total 236 118 Output Total 1 1 Balance 235 -1 118 Intake: Oral 236 118 Output: Stool 1 1 Other: Voiding Method Toilet Toilet Diaper Diaper Incontinent Incontinent # Voids 1 1 # Bowel Movements 3 - Labs CBC & Chem 7: 05/11/23 10:36 05/11/23 10:36 Labs: Abnormal Lab Results - Last 24 Hours (Table) 05/10/23 Range/Units 10:54 Fluid Appearance Slightly Cloudy A (Clear)
--- NOTE | 2023-05-11 14:50 | P.NPCON ---
History of Present Illness - Reason for Consult acute renal failure - History of Present Illness Patient is a 72-year-old female with history of liver cirrhosis, hypertension, endometrial cancer who was admitted to the hospital with mental status changes confusion and weakness. Patient has had paracentesis on a regular basis with last paracentesis done yesterday 05/10/2023 with 10 L of fluid removed. Prior to that patient had a paracentesis about 10 days ago. Serum creatinine was 2.2 on admission and it is down to 1.46 today. No previous labs available for comparison. Blood pressure has been on the lower side with systolic about 99-105 mmHg. Patient is voiding Review of Systems As per HPI Past Medical History Past Medical History: Cancer, GERD/Reflux, Hypertension, Liver Disease Additional Past Medical History / Comment(s): feet swelling, hx. endometrial cancer 2001, frequent diarrhea for months, hx. colon polyps, slight murmur per pt-no tx. for History of Any Multi-Drug Resistant Organisms: None Reported Past Surgical History: Cholecystectomy, Hysterectomy, Joint Replacement, Orthopedic Surgery Additional Past Surgical History / Comment(s): colonoscopies, maryellen. hip replaced, left wrist surg., left foot surg., arthroscopy left knee, right knee surg, large volume paracentesis Past Anesthesia/Blood Transfusion Reactions: No Reported Reaction Additional Past Anesthesia/Blood Transfusion Reaction / Comment(s): usually slow to wake up Smoking Status: Never smoker Past Alcohol Use History: None Reported Past Drug Use History: None Reported - Past Family History Mother Family Medical History: No Reported History Father Family Medical History: Coronary Artery Disease (CAD) Medications and Allergies Home Medications Medication Instructions Recorded Confirmed Type Omeprazole [PriLOSEC] 20 mg PO DAILY 06/15/19 05/09/23 History Ferrous Sulfate [Feosol] 325 mg PO MOWEFR 01/10/22 05/09/23 History Metoprolol Tartrate [Lopressor] 50 mg PO DAILY 01/10/22 05/09/23 History Spironolactone [Aldactone] 100 mg PO DAILY 01/10/22 05/09/23 History Furosemide [Lasix] 40 mg PO DAILY 05/09/23 05/09/23 History Lactulose 20 gm PO TID PRN 05/09/23 05/09/23 History Loperamide [Imodium] 2 mg PO DAILY 05/09/23 05/09/23 History Magnesium 200 mg PO DAILY 05/09/23 05/09/23 History Allergies Allergy/AdvReac Type Severity Reaction Status Date / Time hydromorphone [From Dilaudid] Allergy Severe Rash/Hives Verified 05/09/23 22:12 cephalexin [From Keflex] Allergy Rash/Hives Verified 05/09/23 22:12 guaifenesin [From Entex LA] Allergy Rash/Hives Verified 05/09/23 22:12 levofloxacin [From Levaquin] Allergy Rash/Hives Verified 05/09/23 22:12 phenylephrine [From Entex LA] Allergy Rash/Hives Verified 05/09/23 22:12 phenylpropanolamine Allergy Rash/Hives Verified 05/09/23 22:12 [From Entex LA] Physical Exam Vitals: Vital Signs Temp Pulse Pulse Resp BP Pulse Ox FiO2 05/11/23 14:10 97.6 F 14 118/62 100 05/11/23 08:25 98.9 F 76 14 105/59 99 05/11/23 08:21 99 21 05/11/23 08:00 76 69 14 05/11/23 02:40 97.3 F L 69 12 101/57 96 05/10/23 19:11 97.4 F L 69 16 99/61 100 05/10/23 15:00 97.8 F 77 114/68 100 Intake and Output 05/10/23 05/11/23 05/11/23 22:59 06:59 14:59 Intake Total 118 Output Total 2 1 Balance -2 117 Intake: Oral 118 Output: Stool 2 1 Other: Voiding Method Toilet Toilet Toilet Diaper Diaper Diaper Incontinent Incontinent Incontinent # Voids 0 1 4 # Bowel Movements 3 4 Patient is awake, comfortable, in no acute distress Examination of the heart S1 and S2 Examination of the lungs bilateral breath sounds are heard Abdomen is soft nontender, nondistended. Ascites noted Examination of the lower extremities shows no significant edema [employer] exam grossly intact Results - Lab Results Most recent lab results Calcium 8.2 mg/dL (8.4-10.2) L 05/11/23 10:36 Phosphorus 3.9 mg/dL (2.5-4.5) 05/10/23 06:26 Magnesium 2.0 mg/dL (1.6-2.3) 05/10/23 06:26 05/11/23 10:36 05/11/23 10:36 Assessment and Plan Assessment: 1. Acute kidney injury secondary to hypotension and possibly related to large volume paracentesis performed as outpatient. Doubt hepatorenal syndrome. 2. Liver cirrhosis with recurrent ascites with scheduled paracentesis as outpatient. 3. Mental status changes secondary to hepatic encephalopathy. Ammonia level decreased from 30 initially to less than 9 now 4. Non-gap metabolic acidosis associated with acute kidney injury and normal saline 5. Thrombocytopenia from underlying chronic liver disease Plan: Change IV fluids to IV bicarb. Repeat labs in a.m. Consider abdominal imaging if not done recently. Agree with holding Lasix for now. Thank you for the consultation. We will continue to follow the patient with you during her hospitalization.
[2023-05-12] MEDS: DEXTROSE 5% IN WATER 1,000 ML with SODIUM BICARB (1 MEQ/ML) 150 ML IV SCH ×2 (05:46→21:22)
[2023-05-12] MEDS: LACTULOSE 20 GM/30 ML CUP PO SCH ×3 (08:10→21:22)
[2023-05-12 09:50] LABS: ALT 15 U/L (8-44); AST 20 U/L (13-35); Albumin 2.8 d/dL (3.8-4.9); Albumin/Globulin Ratio 1.65 Ratio (1.60-3.17); Alkaline Phosphatase 79 U/L (41-126); BUN/Creat Ratio 29.27 Ratio (12.00-20.00); Blood Urea Nitrogen 43.9 mg/dL (9.0-27.0); Calcium 7.8 mg/dL (8.7-10.3); Carbon Dioxide 17.3 mmol/L (21.6-31.8); Chloride 108 mmol/L (96-109); Globulin 1.7 d/dL (1.6-3.3); Glucose 94 mg/dL (70-110); Potassium 3.3 mmol/L (3.5-5.5); Sodium 136 mmol/L (135-145); Total Bilirubin 0.6 mg/dL (0.3-1.2); Total Protein 4.5 d/dL (6.2-8.2)
[2023-05-12 10:36] LABS: Basophils # (A) 0.02 X 10*3/uL (0.00-0.10); Basophils % (A) 0.5 %; Elliptocytes 2+; Eosinophils # (A) 0.11 X 10*3/uL (0.04-0.35); Eosinophils % (A) 2.9 %; HCT 26.2 % (37.2-46.3); HGB 7.9 d/dL (12.0-15.0); Hypochromasia (M) 2+; Immature Platelet Fraction 0.7 % (1.1-6.1); Lymphocytes # (A) 0.55 X 10*3/uL (0.90-5.00); Lymphocytes % (A) 14.3 %; MCH 26.3 pg (27.0-32.0); MCHC 30.2 d/dL (32.0-37.0); MCV 87.3 FL (80.0-97.0); Mean Platelet Volume 9.2 FL (9.5-12.2); Microcytosis (M) 2+; Monocytes # (A) 0.38 X 10*3/uL (0.20-1.00); Monocytes % (A) 9.9 %; NRBC Per 100 WBC 0 X 10*3/uL (0.00-0.01); Neutrophils # (A) 2.76 X 10*3/uL (1.80-7.70); Neutrophils % (A) 71.9 %; Platelet Count 68 X 10*3/uL (140-440); RDW 15.6 % (11.5-14.5); WBC 3.84 X 10*3/uL (4.50-10.00)
--- NOTE | 2023-05-12 11:46 | P.PN ---
Subjective Patient is seen for follow-up for acute kidney injury. She has underlying history of liver cirrhosis, hypertension and endometrial cancer. Blood pressure has been low post paracentesis. Currently maintained on IV fluids, IV bicarb for metabolic acidosis. Serum creatinine decreased to 1.5 from 1.8 on initial admission. Next No significant complaints today. Objective - Vital Signs Vital signs: Vital Signs Temp 98.5 F 05/12/23 08:40 Pulse 84 05/12/23 08:40 Resp 14 05/12/23 08:40 BP 126/73 05/12/23 08:40 Pulse Ox 97 05/12/23 08:40 FiO2 21 05/12/23 08:34 Intake & Output 05/11/23 05/12/23 05/12/23 18:59 06:59 18:59 Intake Total 236 Output Total 2 1 1 Balance 234 -1 -1 Intake: Oral 236 Output: Stool 2 1 1 Other: Voiding Method Toilet Toilet Toilet Diaper Diaper Diaper Incontinent Incontinent Incontinent # Voids 4 2 # Bowel Movements 4 1 - Exam Patient is awake, comfortable, in no acute distress Examination of the heart S1 and S2 Examination of the lungs bilateral breath sounds are heard Abdomen is soft nontender, nondistended. Ascites noted Examination of the lower extremities shows no significant edema [employer] exam grossly intact - Labs CBC & Chem 7: 05/12/23 04:25 05/12/23 04:25 Labs: Abnormal Lab Results - Last 24 Hours (Table) 05/11/23 05/12/23 05/12/23 Range/Units 10:36 04:25 04:25 WBC 3.84 L (4.50-10.00) X 10*3/uL RBC 3.00 L (4.10-5.20) X 10*6/uL Hgb 7.9 L (12.0-15.0) d/dL Hct 26.2 L (37.2-46.3) % MCH 26.3 L (27.0-32.0) pg MCHC 30.2 L (32.0-37.0) d/dL RDW 15.6 H (11.5-14.5) % Plt Count 74 L 68 L (150-450) k/uL MPV 9.2 L (9.5-12.2) FL Lymphocytes # 0.5 L 0.55 L (1.0-4.8) k/uL Immature Plt Fraction 0.7 L (1.1-6.1) % Hypochromasia (manual) 2+ A Microcytosis (manual) 2+ A Elliptocytes 2+ A Potassium 3.3 L (3.5-5.5) mmol/L Carbon Dioxide 17.3 L (21.6-31.8) mmol/L BUN 43.9 H (9.0-27.0) mg/dL Est GFR (CKD-EPI) 37 L (>=60) BUN/Creatinine Ratio 29.27 H (12.00-20.00) Ratio Calcium 7.8 L (8.7-10.3) mg/dL Total Protein 4.5 L (6.2-8.2) d/dL Albumin 2.8 L (3.8-4.9) d/dL Assessment and Plan Assessment: 1. Acute kidney injury secondary to hypotension and possibly related to large volume paracentesis performed as outpatient. Doubt hepatorenal syndrome. Renal function has improved with IV hydration. Check UA 2. Liver cirrhosis with recurrent ascites with scheduled paracentesis as outpatient. 3. Mental status changes secondary to hepatic encephalopathy. Ammonia level decreased from 30 initially to less than 9 now 4. Non-gap metabolic acidosis associated with acute kidney injury and normal saline 5. Thrombocytopenia from underlying chronic liver disease Plan: Continue IV bicarb Check UA Repeat labs in a.m. Replace potassium
[2023-05-12] MEDS: ONDANSETRON 4 MG/2 ML VIAL IVP PRN (14:58)
[2023-05-12] MEDS: MORPHINE SULFATE 4 MG/ML SYRINGE IV PRN (15:05)
--- NOTE | 2023-05-12 15:28 | P.PN ---
Subjective Progress Note Date: 05/12/23 Principal diagnosis: patient is a 72-year-old lady with past medical significant for liver cirrhosis, GERD, hypertension, and endometrial cancer who presented to the ER for increasi ng confusion and weakness. Patient was diagnosed with liver cirrhosis at the [facility] and follows up with hepatology there. Patient gets regular paracentesis at [place], last one was 2 weeks ago. Patient was supposed to take lactulose 3 times daily at home but has been noncompliant with medications. Family has been noticing that the patient is more lethargic and confused. No complain the fever or chills at home. No complaint of chest pain or shortness of breath. Denies any abdominal pain. Because of this worsening confusion, patient came to the ER Initial lab work done in the ER showed WBC 5.1, hemoglobin 9.9, platelet 194, sodium 133, potassium 4.3, BUN 68, creatinine 2.23, glucose 135, calcium 8.3, ammonia 30, Patient was admitted to medicine service 05/11. Patient seen and examined. Abdominal distention has improved. States she feels better 05/12. Patient seen and examined. Blood work done this morning showed hemoglobin 7.9, sodium 136, potassium 3.3 BUN 43.9, creatinine 1.5. States she feels better. Denies any nausea or vomiting. REVIEW OF SYSTEMS: CONSTITUTIONAL: No fever, no malaise,. CARDIOVASCULAR: No chest pain, no palpitations, no syncope. PULMONARY: No shortness of breath, no cough, GASTROINTESTINAL: No diarrhea, no nausea, no vomiting, no abdominal pain. NEUROLOGICAL: No headaches, no weakness, PHYSICAL EXAMINATION: GENERAL: The patient is alert and oriented x3, not in any acute distress. Well developed, well nourished. HEENT: Pupils are round and equally reacting to light. EOMI. No scleral icterus. No conjunctival pallor. Normocephalic, atraumatic. No pharyngeal erythema. No thyromegaly. CARDIOVASCULAR: S1 and S2 present. No murmurs, rubs, or gallops. PULMONARY: Chest is clear to auscultation, no wheezing or crackles. ABDOMEN: Soft, nontender, nondistended, normoactive bowel sounds. No palpable organomegaly. MUSCULOSKELETAL: No joint swelling or deformity. EXTREMITIES: No cyanosis, clubbing, or pedal edema. NEUROLOGICAL: Gross neurological examination did not reveal any focal deficits. SKIN: No rashes. Assessment and plan Hyperammonemia Ascites Cirrhosis of liver Acute kidney injury Monitor vital signs Monitor CBC Monitor CMP Continue telemetry monitoring Strict I's and O's, daily weights Avoid nephrotoxic agents Status post paracentesis with removal of 9.9 L Continue lactulose. Continue IV bicarbonate drip Nephrology following Labs and medication were reviewed.. Continue same treatment. Continue with symptomatic treatment. Resume home medication. Monitor labs and vitals. DVT and GI prophylaxis. Further recommendations as per clinical course of the patient Dictation was produced using [employer] dictation software. please excuse any grammatical, word or spelling errors. Objective - Vital Signs Vital signs: Vital Signs Temp 98.5 F 05/12/23 08:40 Pulse 84 05/12/23 08:40 Resp 14 05/12/23 08:40 BP 126/73 05/12/23 08:40 Pulse Ox 97 05/12/23 08:40 FiO2 21 05/12/23 08:34 Intake & Output 05/11/23 05/12/23 05/12/23 18:59 06:59 18:59 Intake Total 236 Output Total 2 1 1 Balance 234 -1 -1 Intake: Oral 236 Output: Stool 2 1 1 Other: Voiding Method Toilet Toilet Toilet Diaper Diaper Diaper Incontinent Incontinent Incontinent # Voids 4 2 # Bowel Movements 4 1 - Labs CBC & Chem 7: 05/12/23 04:25 05/12/23 04:25 Labs: Abnormal Lab Results - Last 24 Hours (Table) 05/11/23 05/12/23 05/12/23 Range/Units 10:36 04:25 04:25 WBC 3.84 L (4.50-10.00) X 10*3/uL RBC 3.00 L (4.10-5.20) X 10*6/uL Hgb 7.9 L (12.0-15.0) d/dL Hct 26.2 L (37.2-46.3) % MCH 26.3 L (27.0-32.0) pg MCHC 30.2 L (32.0-37.0) d/dL RDW 15.6 H (11.5-14.5) % Plt Count 74 L 68 L (150-450) k/uL MPV 9.2 L (9.5-12.2) FL Lymphocytes # 0.5 L 0.55 L (1.0-4.8) k/uL Immature Plt Fraction 0.7 L (1.1-6.1) % Hypochromasia (manual) 2+ A Microcytosis (manual) 2+ A Elliptocytes 2+ A Potassium 3.3 L (3.5-5.5) mmol/L Carbon Dioxide 17.3 L (21.6-31.8) mmol/L BUN 43.9 H (9.0-27.0) mg/dL Est GFR (CKD-EPI) 37 L (>=60) BUN/Creatinine Ratio 29.27 H (12.00-20.00) Ratio Calcium 7.8 L (8.7-10.3) mg/dL Total Protein 4.5 L (6.2-8.2) d/dL Albumin 2.8 L (3.8-4.9) d/dL
[2023-05-13] MEDS: MAGNESIUM OXIDE 400 MG TAB PO SCH (08:18)
[2023-05-13] MEDS: FERROUS SULFATE 325 MG TAB PO SCH (08:18)
[2023-05-13] MEDS: METOPROLOL TARTRATE 50 MG TAB PO SCH (08:18)
[2023-05-13] MEDS: LACTULOSE 20 GM/30 ML CUP PO SCH ×3 (08:32→21:04)
[2023-05-13] MEDS ORDERED: FAMOTIDINE 20 MG TAB PO SCH (10:30)
[2023-05-13] MEDS ORDERED: POTASSIUM CHLORIDE ER 20 MEQ TAB.ER PO STA (11:15)
--- NOTE | 2023-05-13 11:18 | P.PN ---
Subjective Patient is seen in follow-up for acute kidney injury. Renal function stable. On IV fluids. No vomiting or diarrhea. Vital signs are stable. General: No acute distress. HEENT: Head exam is unremarkable. LUNGS: No audible rhonchi or wheezes. HEART: Rate and Rhythm are regular. ABDOMEN: Distention noted. EXTREMITITES: No edema. Objective - Vital Signs Vital signs: Vital Signs Temp 98.2 F 05/13/23 07:58 Pulse 72 05/13/23 08:00 Resp 14 05/13/23 08:00 BP 124/82 05/13/23 07:58 Pulse Ox 97 05/13/23 07:58 FiO2 21 05/12/23 08:34 Intake & Output 05/12/23 05/13/23 05/13/23 18:59 06:59 18:59 Intake Total 318 118 Output Total 1 1 1 Balance 317 -1 117 Intake: Oral 318 118 Output: Stool 1 1 1 Other: Voiding Method Toilet Toilet Toilet Diaper Diaper Diaper Incontinent Incontinent Incontinent # Voids 1 2 # Bowel Movements 1 - Labs CBC & Chem 7: 05/12/23 04:25 05/12/23 04:25 Assessment and Plan Plan: Assessment: 1. Acute kidney injury mostly prerenal secondary to hypotension and large volume paracentesis. Renal function improved from admission. Creatinine stable at 1.5 today. 2. Status post paracentesis on 05/10/2020 3.9.9 liters drained. 3. Liver cirrhosis. Being followed by GI. Patient follows out of [facility]. 4. Hypokalemia from intracellular shifting from IV bicarb. 5. Metabolic acidosis secondary to acute kidney injury improving with bicarbonate drip. 6. Anemia. Rule out iron deficiency. Plan: Hep-Lock IV fluids. Add spironolactone 25 mg twice daily. Check UA. Check renal ultrasound. Check iron studies. Continue to monitor renal function and urine output.
[2023-05-13 11:52] LABS: Basophils % (A) 0 %; Eosinophils # (A) 0.1 k/uL (0-0.7); Eosinophils % (A) 2 %; HGB 8.5 gm/dL (11.4-16.0); Hypochromasia Moderate; Lymphocytes # (A) 0.5 k/uL (1.0-4.8); Lymphocytes % (A) 8 %; MCH 28.3 pg (25.0-35.0); MCHC 32.6 g/dL (31.0-37.0); Mean Platelet Volume 8.1; Monocytes # (A) 0.4 k/uL (0-1.0); Monocytes % (A) 7 %; Neutrophils # (A) 4.6 k/uL (1.3-7.7); Neutrophils % (A) 80 %; RBC 2.99 m/uL (3.80-5.40); RDW 15.6 % (11.5-15.5); WBC 5.7 k/uL (3.8-10.6)
[2023-05-13 11:56] LABS: Platelet Count 68 k/uL (150-450)
[2023-05-13 12:06] LABS: African American GFR (CKD) 31 (>60 ml/min/1.73 sqM); Anion Gap 7 mmol/L; Blood Urea Nitrogen 47 mg/dL (7-17); Calcium 7.4 mg/dL (8.4-10.2); Carbon Dioxide 26 mmol/L (22-30); Chloride 99 mmol/L (98-107); Glucose 139 mg/dL (74-99); Non-African American GFR(CKD) 27 (>60 ml/min/1.73 sqM); Potassium 3.3 mmol/L (3.5-5.1); Sodium 132 mmol/L (137-145)
[2023-05-13] MEDS: SPIRONOLACTONE 25 MG TAB PO SCH ×2 (12:31→21:08)
[2023-05-13] MEDS: SODIUM BICARBONATE TAB 650 MG TAB PO SCH ×2 (12:31→21:08)
[2023-05-13 12:38] LABS: Albumin, Fluid Source Paracentesis Fluid
--- NOTE | 2023-05-13 12:42 | US ---
EXAMINATION TYPE: US kidneys/renal and bladder DATE OF EXAM: 05/13/2023 COMPARISON: 05/10/2023 CLINICAL INDICATION: Female, 72 years old with history of loraine; loraine EXAM MEASUREMENTS: Right Kidney: 8.4 x 3.6 x 3.6 cm Left Kidney: 7.4 x 2.6 x 4.2 cm Right Kidney: No hydronephrosis or masses seen Left Kidney: Very limited due to bowel gas, no hydronephrosis or masses seen Bladder:wnl *known ascites* Cortical medullary differentiation maintained. IMPRESSION: 1. Limited exam no evidence of right hydronephrosis. Limited evaluation left kidney no gross hydrone phrosis visualized. 2. Known abdominal series.
[2023-05-13] MEDS: DEXTROSE 5% IN WATER 1,000 ML with SODIUM BICARB (1 MEQ/ML) 150 ML IV SCH (15:54)
[2023-05-13 18:06] LABS: Appearance,Urine Clear (Clear); Bacteria,Urine Rare /hpf; Bilirubin,Urine Negative (Negative); Blood,Urine Negative (Negative); Color,Urine Light Red; Glucose,Urine (UA) Negative (Negative); Hyaline Casts,Urine 16 /lpf (0-2); Ketones,Urine Negative (Negative); Leukocyte Esterase,Urine Trace (Negative); Mucus,Urine Rare /hpf; Nitrite,Urine Negative (Negative); PH, Urine 5.5 (5.0-8.0); Protein,Urine Negative (Negative); RBC,Urine 1 /hpf (0-5); Specific Gravity,Urine 1.017 (1.001-1.035); Squamous Epithelial Cell,Urine 2 /hpf (0-4); Urobilinogen,Urine <2.0 mg/dL (<2.0); WBC,Urine 4 /hpf (0-5)
[2023-05-13 20:58] LABS: % Iron Saturation 34.16 (12.00-45.00); Ferritin 92.4 ng/mL (10.0-291.0); Iron 55 UG/DL (50-170); Total Iron Binding Capacity 161 UG/DL (228-460)
--- NOTE | 2023-05-14 06:37 | P.PN ---
Subjective Progress Note Date: 05/13/23 patient is a 72-year-old lady with past medical significant for liver cirrhosis, GERD, hypertension, and endometrial cancer who presented to the ER for increasing confusion and weakness. Patient was diagnosed with liver cirrhosis at the [facility] and follows up with hepatology there. Patient gets regular paracentesis at [place], last one was 2 weeks ago. Patient was supposed to take lactulose 3 times daily at home but has been noncompliant with medications. Family has been noticing that the patient is more lethargic and confused. No complain the fever or chills at home. No complaint of chest pain or shortness of breath. Denies any abdominal pain. Because of this worsening c onfusion, patient came to the ER Initial lab work done in the ER showed WBC 5.1, hemoglobin 9.9, platelet 194, sodium 133, potassium 4.3, BUN 68, creatinine 2.23, glucose 135, calcium 8.3, ammonia 30, Patient was admitted to medicine service 05/11. Patient seen and examined. Abdominal distention has improved. States she feels better 05/12. Patient seen and examined. Blood work done this morning showed hemoglobin 7.9, sodium 136, potassium 3.3 BUN 43.9, creatinine 1.5. States she feels better. Denies any nausea or vomiting. 05/13/2023 Patient is seen and evaluated in follow-up today reports she continues to feel better and tolerating oral intake. Patient being followed by nephrology and was continued on gentle IV hydration we'll recommend holding for now. Follow-up labs ordered including iron studies and a repeat urinalysis. Abdomen on exam feels distended although patient reports this is improved and also reported approximately 10 L removed on Saturday. Patient has been requiring frequent outpatient paracentesis and unsure of how often she is truly going. Patient is afebrile denying chest pain or shortness of breath. Encouraged increased activity as tolerated. Recommend PT/OT therapy evaluation. REVIEW OF SYSTEMS: CONSTITUTIONAL: No fever, no malaise,. CARDIOVASCULAR: No chest pain, no palpitations, no syncope. PULMONARY: No shortness of breath, no cough, GASTROINTESTINAL: No diarrhea, no nausea, no vomiting, no abdominal pain. NEUROLOGICAL: No headaches, no weakness, PHYSICAL EXAMINATION: GENERAL: The patient is alert and oriented x3, not in any acute distress. Thin built, elderly appearing HEENT: Pupils are round and equally reacting to light. EOMI. No scleral icterus. No conjunctival pallor. Normocephalic, atraumatic. No pharyngeal erythema. No thyromegaly. CARDIOVASCULAR: S1 and S2 present. No murmurs, rubs, or gallops. PULMONARY: Chest is clear to auscultation, no wheezing or crackles. ABDOMEN: Soft, nontender, distended, normoactive bowel sounds. No palpable organomegaly. MUSCULOSKELETAL: No joint swelling or deformity. EXTREMITIES: No cyanosis, clubbing, or pedal edema. NEUROLOGICAL: Gross neurological examination did not reveal any focal deficits. Diffusely weak SKIN: No rashes. Assessment: Hyperammonemia, improving Ascites, status post paracentesis Anemia, likely of chronic disease, rule out iron deficiency Cirrhosis of liver, follows with GI at [facility] outpatient Acute kidney injury likely secondary to hypotension and recent paracentesis of over 10 L removed Muscle wasting with moderate protein calorie malnutrition GI prophylaxis DVT prophylaxis No code Plan: Recommend continue current medications and management with nephrology following Patient was continued on bicarbonate showing some improvements as well as gentle hydration and will hold fluids for now Encouraged oral intake and recommended aspiration precautions and sitting up in the chair for meals Patient's abdomen distended although patient reports this is improved from previous and recommend close monitoring for possible paracentesis again Recommend follow-up labs in the a.m. Encouraged increased activity as tolerated and recommend PT/OT therapy evaluation Overall poor prognosis. The impression and plan of care has been dictated by Saige Graham, Nurse Practitioner as directed. Dr. Tre MD I have performed a history and examination and MDM of this patient, discussed the same with the dictator, and agree with the dictator's assessment and plan as written ,documented as a scribe. Based on total visit time, I have performed more than 50% of the visit. Objective - Vital Signs Vital signs: Vital Signs Temp 98.2 F 05/13/23 07:58 Pulse 72 05/13/23 08:00 Resp 14 05/13/23 08:00 BP 124/82 05/13/23 07:58 Pulse Ox 97 05/13/23 07:58 FiO2 21 05/12/23 08:34 Intake & Output 05/12/23 05/13/23 05/13/23 18:59 06:59 18:59 Intake Total 318 118 Output Total 1 1 1 Balance 317 -1 117 Intake: Oral 318 118 Output: Stool 1 1 1 Other: Voiding Method Toilet Toilet Toilet Diaper Diaper Diaper Incontinent Incontinent Incontinent # Voids 1 2 # Bowel Movements 1 - Labs CBC & Chem 7: 05/13/23 11:23 05/13/23 11:23
[2023-05-14] MEDS: SODIUM BICARBONATE TAB 650 MG TAB PO SCH ×2 (09:32→22:07)
[2023-05-14] MEDS: FAMOTIDINE 20 MG TAB PO SCH (09:32)
[2023-05-14] MEDS: METOPROLOL TARTRATE 50 MG TAB PO SCH (09:33)
[2023-05-14] MEDS: SPIRONOLACTONE 25 MG TAB PO SCH ×2 (09:33→22:07)
[2023-05-14] MEDS: MAGNESIUM OXIDE 400 MG TAB PO SCH (09:33)
[2023-05-14] MEDS: ONDANSETRON 4 MG/2 ML VIAL IVP PRN (09:47)
[2023-05-14 11:17] LABS: BUN/Creat Ratio 20.45 Ratio (12.00-20.00); Calcium 8.1 mg/dL (8.7-10.3); Carbon Dioxide 25.2 mmol/L (21.6-31.8); Chloride 100 mmol/L (96-109); Glucose 93 mg/dL (70-110); Magnesium 1.9 mg/dL (1.5-2.4); Potassium 3.7 mmol/L (3.5-5.5); Sodium 135 mmol/L (135-145)
--- NOTE | 2023-05-14 12:22 | P.PN ---
Subjective Patient is seen in follow-up for acute kidney injury. Renal function worse from addition of Aldactone. Off IV fluids. No vomiting or diarrhea. Vital signs are stable. General: No acute distress. HEENT: Head exam is unremarkable. LUNGS: No audible rhonchi or wheezes. HEART: Rate and Rhythm are regular. ABDOMEN: Distention noted. EXTREMITITES: No edema. Objective - Vital Signs Vital signs: Vital Signs Temp 98 F 05/14/23 10:05 Pulse 62 05/14/23 10:05 Resp 14 05/14/23 10:05 BP 100/54 05/14/23 10:05 Pulse Ox 99 05/14/23 10:05 FiO2 21 05/12/23 08:34 Intake & Output 05/13/23 05/14/23 05/14/23 18:59 06:59 18:59 Intake Total 118 118 Output Total 2 Balance 116 118 Intake: Oral 118 118 Output: Stool 2 Other: Voiding Method Toilet Toilet Toilet Diaper Diaper Diaper Incontinent Incontinent Incontinent # Voids 4 3 # Bowel Movements 2 1 - Labs CBC & Chem 7: 05/13/23 11:23 05/14/23 05:28 Labs: Abnormal Lab Results - Last 24 Hours (Table) 05/13/23 05/13/23 05/14/23 Range/Units 11:23 17:46 05:28 BUN 45.0 H (9.0-27.0) mg/dL Creatinine 2.2 H (0.6-1.5) mg/dL Est GFR (CKD-EPI) 23 L (>=60) BUN/Creatinine Ratio 20.45 H (12.00-20.00) Ratio Calcium 8.1 L (8.7-10.3) mg/dL TIBC 161 L (228-460) UG/DL Transferrin 115.0 L (204.0-354.0) mg/dL Ur Leukocyte Esterase Trace H (Negative) Urine Bacteria Rare H (None) /hpf Hyaline Casts 16 H (0-2) /lpf Urine Mucus Rare H (None) /hpf Assessment and Plan Plan: Assessment: 1. Acute kidney injury mostly prerenal secondary to hypotension and large volume paracentesis. Renal function worse from addition of Aldactone. Creatinine 2.2. UA benign. No hydronephrosis noted on kidney ultrasound. Kidneys atrophic. 2. Status post paracentesis on 05/10/2020 3.9.9 liters drained. 3. Liver cirrhosis. Being followed by GI. Patient follows out of [facility]. 4. Hypokalemia from intracellular shifting from IV bicarb. 5. Metabolic acidosis secondary to acute kidney injury status post bicarb drip. 6. Anemia. Iron replete. Plan: Maintain low salt diet and fluid restriction. Maintain Aldactone. Check abdominal ultrasound. May need another paracentesis. Continue to monitor renal function and urine output.
--- NOTE | 2023-05-14 14:02 | US ---
EXAMINATION TYPE: US abdomen limited DATE OF EXAM: 05/14/2023 COMPARISON: CLINICAL INDICATION: Female, 72 years old with history of ascites; Hx ascites. Patient was laying o n her right side before exam. All four quadrants scanned with ascites visualized. IMPRESSION: Ascites
[2023-05-14] MEDS: LACTULOSE 20 GM/30 ML CUP PO SCH ×3 (15:16→22:07)
[2023-05-14 19:32] LABS: INR 1.1 (<1.2); Prothrombin Time 11.5 sec (9.0-12.0)
--- NOTE | 2023-05-15 06:11 | P.PN ---
Subjective Progress Note Date: 05/14/23 patient is a 72-year-old lady with past medical significant for liver cirrhosis, GERD, hypertension, and endometrial cancer who presented to the ER for increasing confusion and weakness. Patient was diagnosed with liver cirrhosis at the [facility] and follows up with hepatology there. Patient gets regular paracentesis at [place], last one was 2 weeks ago. Patient was supposed to take lactulose 3 times daily at home but has been noncompliant with medications. Family has been noticing that the patient is more lethargic and confused. No complain the fever or chills at home. No complaint of chest pain or shortness of breath. Denies any abdominal pain. Because of this worsening c onfusion, patient came to the ER Initial lab work done in the ER showed WBC 5.1, hemoglobin 9.9, platelet 194, sodium 133, potassium 4.3, BUN 68, creatinine 2.23, glucose 135, calcium 8.3, ammonia 30, Patient was admitted to medicine service 05/11. Patient seen and examined. Abdominal distention has improved. States she feels better 05/12. Patient seen and examined. Blood work done this morning showed hemoglobin 7.9, sodium 136, potassium 3.3 BUN 43.9, creatinine 1.5. States she feels better. Denies any nausea or vomiting. 05/13/2023 Patient is seen and evaluated in follow-up today reports she continues to feel better and tolerating oral intake. Patient being followed by nephrology and was continued on gentle IV hydration we'll recommend holding for now. Follow-up labs ordered including iron studies and a repeat urinalysis. Abdomen on exam feels distended although patient reports this is improved and also reported approximately 10 L removed on Saturday. Patient has been requiring frequent outpatient paracentesis and unsure of how often she is truly going. Patient is afebrile denying chest pain or shortness of breath. Encouraged increased activity as tolerated. Recommend PT/OT therapy evaluation. 05/14/2023 Patient is seen and evaluated in follow-up today and kidney functions worsening with nephrology following. Patient is off IV fluids maintained on Aldactone. Patient's abdomen is distended will order repeat abdominal ultrasound as patient will likely need another paracentesis. Recommend albumin prior to and after paracentesis. Will reconsult interventional radiology for possible paracentesis. Patient is afebrile denies chest pain or shortness of breath. Patient reports tolerating oral intake and continues to eat very little. Recommend repeat labs in a.m. REVIEW OF SYSTEMS: CONSTITUTIONAL: No fever, no malaise,. CARDIOVASCULAR: No chest pain, no palpitations, no syncope. PULMONARY: No shortness of breath, no cough, GASTROINTESTINAL: No diarrhea, no nausea, no vomiting, no abdominal pain. NEUROLOGICAL: No headaches, no weakness, PHYSICAL EXAMINATION: GENERAL: The patient is alert and oriented x3, not in any acute distress. Thin built, elderly appearing HEENT: Pupils are round and equally reacting to light. EOMI. No scleral icterus. No conjunctival pallor. Normocephalic, atraumatic. No pharyngeal erythema. No thyromegaly. CARDIOVASCULAR: S1 and S2 present. No murmurs, rubs, or gallops. PULMONARY: Chest is clear to auscultation, no wheezing or crackles. ABDOMEN: Soft, nontender, distended, normoactive bowel sounds. No palpable organomegaly. MUSCULOSKELETAL: No joint swelling or deformity. EXTREMITIES: No cyanosis, clubbing, or pedal edema. NEUROLOGICAL: Gross neurological examination did not reveal any focal deficits. Diffusely weak SKIN: No rashes. Assessment: Hyperammonemia, improving Ascites, status post paracentesis Anemia, likely of chronic disease, iron deficiency Cirrhosis of liver, follows with GI at [facility] outpatient Acute kidney injury likely secondary to hypotension and recent paracentesis of over 10 L removed Muscle wasting with moderate protein calorie malnutrition GI prophylaxis DVT prophylaxis No code Plan: Recommend continue current medications and management with nephrology following Patient worsening kidney functions recommend follow-up labs. Continue fluid res trictions on low-salt diet Encouraged oral intake and recommended aspiration precautions and sitting up in the chair for meals Patient's abdomen is distended and will obtain abdominal ultrasound. Int erventional radiology consultation for possible paracentesis again Recommend follow-up labs in the a.m. Encouraged increased activity as tolerated and recommend PT/OT therapy evaluation Overall poor prognosis. The impression and plan of care has been dictated by Nurse Gustavo Mcmanus as directed. Dr. Tre MD I have performed a history and examination and MDM of this patient, discussed the same with the dictator, and agree with the dictator's assessment and plan as written ,documented as a scribe. Based on total visit time, I have performed more than 50% of the visit. Objective - Vital Signs Vital signs: Vital Signs Temp 98 F 05/14/23 10:05 Pulse 62 05/14/23 10:05 Resp 14 05/14/23 10:05 BP 100/54 05/14/23 10:05 Pulse Ox 99 05/14/23 10:05 FiO2 21 05/12/23 08:34 Intake & Output 05/13/23 05/14/23 05/14/23 18:59 06:59 18:59 Intake Total 118 118 Output Total 2 Balance 116 118 Intake: Oral 118 118 Output: Stool 2 Other: Voiding Method Toilet Toilet Diaper Diaper Incontinent Incontinent # Voids 4 3 # Bowel Movements 2 1 - Labs CBC & Chem 7: 05/13/23 11:23 05/14/23 05:28 Labs: Abnormal Lab Results - Last 24 Hours (Table) 05/13/23 05/13/23 05/13/23 Range/Units 11:23 11:23 17:46 RBC 2.99 L (3.80-5.40) m/uL Hgb 8.5 L (11.4-16.0) gm/dL Hct 26.0 L (34.0-46.0) % RDW 15.6 H (11.5-15.5) % Plt Count 68 L (150-450) k/uL Lymphocytes # 0.5 L (1.0-4.8) k/uL Sodium 132 L (137-145) mmol/L Potassium 3.3 L (3.5-5.1) mmol/L BUN 47 H (7-17) mg/dL Creatinine 1.84 H (0.52-1.04) mg/dL Glucose 139 H (74-99) mg/dL Calcium 7.4 L (8.4-10.2) mg/dL TIBC 161 L (228-460) UG/DL Transferrin 115.0 L (204.0-354.0) mg/dL Ur Leukocyte Esterase Trace H (Negative) Urine Bacteria Rare H (None) /hpf Hyaline Casts 16 H (0-2) /lpf Urine Mucus Rare H (None) /hpf
[2023-05-15] MEDS ORDERED: PANTOPRAZOLE 40 MG TABLET PO SCH (09:00)
[2023-05-15] MEDS: FAMOTIDINE 20 MG TAB PO SCH (09:10)
[2023-05-15] MEDS: ALBUMIN HUMAN 25% 50 ML in EMPTY BAG 1 BAG IVPB SCH ×4 (10:22→12:25)
--- NOTE | 2023-05-15 11:32 | US ---
EXAMINATION TYPE: US paracentesis abd w/image DATE OF EXAM: 05/15/2023 CLINICAL HISTORY: 72-year-old female with ascites. Last Paracentesis a week ago. Patient normally wi th monthly paracentesis now with more rapid accumulation of fluid. The procedure was discussed with the patient. The risks, complications, benefits, and alternatives we re discussed and any questions were answered. Informed consent was obtained. The patient was placed s upine on the ultrasound table and prepped and draped in the usual sterile fashion. All elements of maximal barrier technique were utilized. Ultrasound was utilized to determine the precise skin entry site along the right lower quadrant. 6 Fr ench safety centesis catheter system was utilized to obtain access into the ascites collection. Local anesthesia was utilized. Approximately 8.2 liters of straw-colored fluid was removed. The patient was stable throughout the pr ocedure and remained stable upon discharge from Department of Radiology. Catheter was removed, hemostasis obtained, and a bandage placed. IMPRESSION: Successful therapeutic paracentesis under ultrasound guidance. 8.2 L of ascites fluid removed.
[2023-05-15] MEDS: MAGNESIUM OXIDE 400 MG TAB PO SCH (11:45)
[2023-05-15] MEDS: METOPROLOL TARTRATE 50 MG TAB PO SCH (11:45)
[2023-05-15] MEDS: SPIRONOLACTONE 25 MG TAB PO SCH ×2 (11:45→20:47)
[2023-05-15] MEDS: SODIUM BICARBONATE TAB 650 MG TAB PO SCH ×2 (11:45→20:47)
[2023-05-15] MEDS: LACTULOSE 20 GM/30 ML CUP PO SCH ×3 (11:45→20:47)
[2023-05-15] MEDS: OMEPRAZOLE 20 MG PO SCH (11:46)
[2023-05-15] MEDS: FERROUS SULFATE 325 MG TAB PO SCH (12:25)
[2023-05-15 16:19] LABS: BUN/Creat Ratio 19.28 Ratio (12.00-20.00); Blood Urea Nitrogen 48.2 mg/dL (9.0-27.0); Calcium 8.1 mg/dL (8.7-10.3); Carbon Dioxide 24.5 mmol/L (21.6-31.8); Chloride 98 mmol/L (96-109); Glucose 97 mg/dL (70-110); Potassium 3.8 mmol/L (3.5-5.5); Sodium 134 mmol/L (135-145)
[2023-05-16 04:34] LABS: African American GFR (CKD) 22 (>60 ml/min/1.73 sqM); Anion Gap 4 mmol/L; Blood Urea Nitrogen 52 mg/dL (7-17); Calcium 7.7 mg/dL (8.4-10.2); Carbon Dioxide 28 mmol/L (22-30); Chloride 98 mmol/L (98-107); Glucose 89 mg/dL (74-99); Magnesium 2.1 mg/dL (1.6-2.3); Non-African American GFR(CKD) 19 (>60 ml/min/1.73 sqM); Potassium 3.8 mmol/L (3.5-5.1); Sodium 130 mmol/L (137-145)
--- NOTE | 2023-05-16 05:43 | P.PN ---
Subjective Progress Note Date: 05/15/23 patient is a 72-year-old lady with past medical significant for liver cirrhosis, GERD, hypertension, and endometrial cancer who presented to the ER for increasing confusion and weakness. Patient was diagnosed with liver cirrhosis at the [facility] and follows up with hepatology there. Patient gets regular paracentesis at [place], last one was 2 weeks ago. Patient was supposed to take lactulose 3 times daily at home but has been noncompliant with medications. Family has been noticing that the patient is more lethargic and confused. No complain the fever or chills at home. No complaint of chest pain or shortness of breath. Denies any abdominal pain. Because of this worsening c onfusion, patient came to the ER Initial lab work done in the ER showed WBC 5.1, hemoglobin 9.9, platelet 194, sodium 133, potassium 4.3, BUN 68, creatinine 2.23, glucose 135, calcium 8.3, ammonia 30, Patient was admitted to medicine service 05/11. Patient seen and examined. Abdominal distention has improved. States she feels better 05/12. Patient seen and examined. Blood work done this morning showed hemoglobin 7.9, sodium 136, potassium 3.3 BUN 43.9, creatinine 1.5. States she feels better. Denies any nausea or vomiting. 05/13/2023 Patient is seen and evaluated in follow-up today reports she continues to feel better and tolerating oral intake. Patient being followed by nephrology and was continued on gentle IV hydration we'll recommend holding for now. Follow-up labs ordered including iron studies and a repeat urinalysis. Abdomen on exam feels distended although patient reports this is improved and also reported approximately 10 L removed on Saturday. Patient has been requiring frequent outpatient paracentesis and unsure of how often she is truly going. Patient is afebrile denying chest pain or shortness of breath. Encouraged increased activity as tolerated. Recommend PT/OT therapy evaluation. 05/14/2023 Patient is seen and evaluated in follow-up today and kidney functions worsening with nephrology following. Patient is off IV fluids maintained on Aldactone. Patient's abdomen is distended will order repeat abdominal ultrasound as patient will likely need another paracentesis. Recommend albumin prior to and after paracentesis. Will reconsult interventional radiology for possible paracentesis. Patient is afebrile denies chest pain or shortness of breath. Patient reports tolerating oral intake and continues to eat very little. Recommend repeat labs in a.m. 05/15/2023 Patient is seen in follow-up today has been evaluated by interventional radiol ogfemi undergoing paracentesis for ascites and patient has received albumin prior to and will await report of volume removal for post albumin transfusion. Morning labs pending as patient was down for paracentesis and will await with nephrology following. Encouraged oral intake and increased activity as tolerated. PT/OT therapy evaluation for continued weakness. Significant muscle wasting noted on exam. REVIEW OF SYSTEMS: CONSTITUTIONAL: No fever, no malaise,. CARDIOVASCULAR: No chest pain, no palpitations, no syncope. PULMONARY: No shortness of breath, no cough, GASTROINTESTINAL: No diarrhea, no nausea, no vomiting, no abdominal pain. NEUROLOGICAL: No headaches, no weakness, PHYSICAL EXAMINATION: GENERAL: The patient is alert and oriented x3, not in any acute distress. Thin built, elderly appearing HEENT: Pupils are round and equally reacting to light. EOMI. No scleral icterus. No conjunctival pallor. Normocephalic, atraumatic. No pharyngeal erythema. No thyromegaly. CARDIOVASCULAR: S1 and S2 present. No murmurs, rubs, or gallops. PULMONARY: Chest is clear to auscultation, no wheezing or crackles. ABDOMEN: Soft, nontender, distended, normoactive bowel sounds. No palpable organomegaly. MUSCULOSKELETAL: No joint swelling or deformity. EXTREMITIES: No cyanosis, clubbing, or pedal edema. NEUROLOGICAL: Gross neurological examination did not reveal any focal deficits. Diffusely weak SKIN: No rashes. Assessment: Hyperammonemia, improved Ascites, status post paracentesis 2 this admission and approximately 8 L removed today Anemia, likely of chronic disease, iron deficiency Cirrhosis of liver, follows with GI at [facility] outpatient Acute kidney injury likely secondary to hypotension and recent paracentesis Muscle wasting with moderate protein calorie malnutrition GI prophylaxis DVT prophylaxis No code Plan: Patient will continue current medications and management with nephrology following a.m. labs pending as patient was down for paracentesis Interventional radiology evaluated and undergoing paracentesis for continued ascites and removed approximately a liters. Patient received pre-and post albumin Patient worsening kidney functions will follow-up on labs. Continue fluid restrictions on low-salt diet Encouraged oral intake and recommended aspiration precautions and sitting up in the chair for meals Encouraged increased activity as tolerated and recommend PT/OT therapy evaluation Overall poor prognosis. The impression and plan of care has been dictated by Saige Graham, Nurse Practitioner as directed. Dr. Tre MD I have performed a history and examination and MDM of this patient, discussed the same with the dictator, and agree with the dictator's assessment and plan as written ,documented as a scribe. Based on total visit time, I have performed more than 50% of the visit. Objective - Vital Signs Vital signs: Vital Signs Temp 97.4 F L 05/15/23 07:52 Pulse 60 05/15/23 07:52 Resp 14 05/15/23 07:52 BP 97/56 05/15/23 07:52 Pulse Ox 98 05/15/23 07:52 FiO2 21 05/12/23 08:34 Intake & Output 05/14/23 05/15/23 05/15/23 18:59 06:59 18:59 Intake Total 532 Balance 532 Intake: Oral 532 Other: Voiding Method Toilet Toilet Diaper Diaper Incontinent Incontinent # Voids 2 1 # Bowel Movements 2 1 - Labs CBC & Chem 7: 05/13/23 11:23 05/16/23 03:46 Labs: Abnormal Lab Results - Last 24 Hours (Table) 05/14/23 Range/Units 05:28 BUN 45.0 H (9.0-27.0) mg/dL Creatinine 2.2 H (0.6-1.5) mg/dL Est GFR (CKD-EPI) 23 L (>=60) BUN/Creatinine Ratio 20.45 H (12.00-20.00) Ratio Calcium 8.1 L (8.7-10.3) mg/dL
[2023-05-16 08:56] VITALS: RESP 16
[2023-05-16] MEDS: LACTULOSE 20 GM/30 ML CUP PO SCH (09:06)
[2023-05-16] MEDS: SPIRONOLACTONE 25 MG TAB PO SCH (09:06)
[2023-05-16] MEDS: MAGNESIUM OXIDE 400 MG TAB PO SCH (09:07)
[2023-05-16] MEDS: OMEPRAZOLE 20 MG PO SCH (09:07)
[2023-05-16] MEDS: SODIUM BICARBONATE TAB 650 MG TAB PO SCH (09:07)
[2023-05-16] MEDS: METOPROLOL TARTRATE 50 MG TAB PO SCH (09:07)
--- NOTE | 2023-05-16 10:03 | P.PN ---
Subjective Patient is seen in follow-up for acute kidney injury. Renal function stable. No vomiting or diarrhea. Sitting up in chair. Vital signs are stable. General: No acute distress. HEENT: Head exam is unremarkable. LUNGS: No audible rhonchi or wheezes. HEART: Rate and Rhythm are regular. ABDOMEN: Distention noted. EXTREMITITES: Trace edema. Objective - Vital Signs Vital signs: Vital Signs Temp 97.9 F 05/16/23 08:50 Pulse 58 L 05/16/23 08:50 Resp 16 05/16/23 08:50 BP 93/47 05/16/23 08:50 Pulse Ox 99 05/16/23 08:50 FiO2 21 05/12/23 08:34 Intake & Output 05/15/23 05/16/23 05/16/23 18:59 06:59 18:59 Intake Total 640 Output Total 1 Balance 639 Intake: Oral 640 Output: Stool 1 Other: Voiding Method Toilet Toilet Diaper Diaper Incontinent Incontinent # Voids 1 1 1 # Bowel Movements 1 1 - Labs CBC & Chem 7: 05/13/23 11:23 05/16/23 03:46 Labs: Abnormal Lab Results - Last 24 Hours (Table) 05/15/23 05/16/23 Range/Units 06:45 03:46 Sodium 134 L 130 L (135-145) mmol/L BUN 48.2 H 52 H (9.0-27.0) mg/dL Creatinine 2.5 H 2.42 H (0.6-1.5) mg/dL Est GFR (CKD-EPI) 20 L (>=60) Calcium 8.1 L 7.7 L (8.7-10.3) mg/dL Assessment and Plan Plan: Assessment: 1. Acute kidney injury mostly prerenal secondary to hypotension and large vo lume paracentesis. Renal function worse from addition of diuretics. Creatinine stable at 2.42. UA benign. No hydronephrosis noted on kidney ultrasound. Kidneys atrophic. 2. Status post paracentesis on 05/10/2020 9.9 liters drained. Another 8.2 L drained 05/15/2023. 3. Liver cirrhosis. Being followed by GI. Patient follows out of [facility]. 4. Hypokalemia from intracellular shifting from IV bicarb. Replace. Stable. 5. Metabolic acidosis secondary to acute kidney injury status post bicarb drip. Resolved. 6. Anemia. Iron replete. 7. Hypervolemic hyponatremia. Plan: Maintain low salt diet and fluid restriction. Increase Aldactone dose to 50 mg twice daily. Add Lasix 20 mg once daily. Continue to monitor renal function and urine output. Stop bicarb. Add midodrine. Hold for systolic blood pressure greater than 110.
[2023-05-16] MEDS ORDERED: FUROSEMIDE 20 MG TAB PO SCH (10:15)
[2023-05-16 12:30] VITALS: BP 92/53; PULSE 59; TEMP 97.4
[2023-05-16] MEDS ORDERED: MIDODRINE 5 MG TAB PO SCH (12:30)
[2023-05-16 12:55] VITALS: BMI 27.3
[2023-05-16] MEDS ORDERED: SPIRONOLACTONE 25 MG TAB PO SCH (21:00)
--- NOTE | 2023-05-17 20:52 | P.DS ---
Providers Date of admission: 05/09/23 22:56 Expected date of discharge: 05/16/23 Attending physician: Miguel Mann Consults: 05/09/23 22:55 Consult Physician Routine Consulting Provider: Aparna Izaguirre Consult Reason/Comments: ammonia Do you want consulting provider notified?: Yes Consult Physician Routine Consulting Provider: Irina Coles Consult Reason/Comments: loraine Do you want consulting provider notified?: Yes Primary care physician: Danielito Ana [facility] Course: Final diagnosis Hyperammonemia, improved due to noncompliance with lactulose Ascites, status post paracentesis 2 this admission and approximately 8 L removed today Anemia, likely of chronic disease, iron deficiency Cirrhosis of liver, follows with GI at [facility] outpatient Acute kidney injury likely secondary to hypotension and recent paracentesis Muscle wasting with moderate protein calorie malnutrition GI prophylaxis DVT prophylaxis No code Discharge disposition Patient is being discharged in a stable condition with guarded prognosis to home . Patient will follow-up with Dr. Perez in the outpatient setting upon discharge. Patient is to continue with current medications and close outpatient follow-up with nephrology as scheduled. Recommend labs in the next 2-3 days. Total time taken is greater than 35 minutes. Hospital course This is a 72-year-old female who was recently admitted with increased confusion and elevated ammonia with significant ascites being closely monitored. Patient has been noncompliant with medications and was instructed to take lactulose 3 t imes daily and had not been doing so. Patient having overall decline with poor oral intake and significant ascites has been requiring paracentesis. During this visit patient has had over 18 L removed and will be continued on Lasix and Aldactone. Patient to follow-up with GI specialist as well as nephrology outpatient. Patient reports to feeling improved and will be going home with family. Currently no reports of chest pain, shortness of breath, or palpitations. Patient is afebrile. No reports of nausea or vomiting and patient is tolerating diet. Patient will be discharged home today. Guarded prognosis given patient's significant comorbidities. Patient receiving outpatient palliative paracentesis will likely be requiring it more frequently. Overall prognosis remains poor. Patient to follow-up with GI and nephrology outpatient. Please refer to other consultation notes for further HPI. Physical exam: Gen: This is a 72-year-old female who is awake, alert and oriented 2, thin built, elderly appearing, cachectic, significant muscle wasting noted HEENT: Head is atraumatic, normocephalic. Pupils equal, round. Sclerae is anicteric. NECK: Supple. No JVD. No lymphadenopathy. No thyromegaly. LUNGS: Clear to auscultation. No wheezes or rhonchi. No intercostal retractions. HEART: Regular rate and rhythm. No murmur. ABDOMEN: Soft. Distended Bowel sounds are present. No masses. No tenderness. EXTREMITIES: No pedal edema. No calf tenderness. Lower extremity edema NEUROLOGICAL: Patient is awake, alert and oriented x3. Cranial nerves 2 through 12 are grossly intact. Please refer to medication reconciliation sheet for a list of medications. The impression and plan of care has been dictated by Saige Graham, Nurse Practitioner as directed. Dr. Tre MD I have performed a history and examination and MDM of this patient, discussed the same with the dictator, and agree with the dictator's assessment and plan as written ,documented as a scribe. Based on total visit time, I have performed more than 50% of the visit. Patient Condition at Discharge: Fair Plan - Discharge Summary New Discharge Prescriptions: New Furosemide [Lasix] 20 mg PO DAILY #30 tab Midodrine [ProAmatine] 5 mg PO AC-TID #90 tab Spironolactone [Aldactone] 50 mg PO BID 30 Days #120 tab Continue Omeprazole [PriLOSEC] 20 mg PO DAILY Lactulose 20 gm PO TID PRN PRN Reason: Constipation Ferrous Sulfate [Iron (65 MG Elemental)] 325 mg PO MOWEFR Metoprolol Tartrate [Lopressor] 50 mg PO DAILY Magnesium 200 mg PO DAILY Changed Loperamide [Imodium] 2 mg PO DAILY PRN #0 PRN Reason: Diarrhea Discontinued Spironolactone [Aldactone] 100 mg PO DAILY Furosemide [Lasix] 40 mg PO DAILY Discharge Medication List Omeprazole [PriLOSEC] 20 mg PO DAILY 06/15/19 [History] Ferrous Sulfate [Iron (65 MG Elemental)] 325 mg PO MOWEFR 01/10/22 [History] Metoprolol Tartrate [Lopressor] 50 mg PO DAILY 01/10/22 [History] Lactulose 20 gm PO TID PRN 05/09/23 [History] Magnesium 200 mg PO DAILY 05/09/23 [History] Furosemide [Lasix] 20 mg PO DAILY #30 tab 05/16/23 [Rx] Loperamide [Imodium] 2 mg PO DAILY PRN #0 05/16/23 [Rx] Midodrine [ProAmatine] 5 mg PO AC-TID #90 tab 05/16/23 [Rx] Spironolactone [Aldactone] 50 mg PO BID 30 Days #120 tab 05/16/23 [Rx] Follow up Appointment(s)/Referral(s): Danielito Perez MD [Primary Care Provider] - 1-2 days (Patient needs to call to make a follow up appointment with Dr. Perez.) [facility] [NON-STAFF] - 1-2 Days ([facility] will call you to schedule your in home physical therapy visits. ) Ambulatory/Diagnostic Orders: Basic Metabolic Panel [LAB.AMB] Time Frame: 3 Days, Location: None Selected Activity/Diet/Wound Care/Special Instructions: PT'S HOME OMEPRAZOLE IS IN MED ROOM...PLEASE GIVE TO PT UPON DISCHARGE Activity Limited until follow-up Follow-up with primary care provider this week Follow-up with nephrology outpatient in one week Continue low sodium 2000 mg diet with fluid restrictions of 45 ounces daily Recommend repeat labs of BMP and magnesium on Saturday Follow-up GI outpatient Patient to continue with lactulose 2-3 times daily for at least 2 soft bowel movements daily Discharge Disposition: HOME WITH HOME HEALTH SERVICES
== END 2023-05-16 17:02 | disposition home health service (06) | DRG 433 ==
LOC: EC 19:41 → OBSVTOIN 22:56 → 6NMEDSUR 22:56 → 5NMEDONC 05-16 00:38
PROVIDERS: ADMIT Hospitalist; ATTEND Hospitalist
PROC: 0W9G3ZZ Drainage of Peritoneal Cavity, Percutaneous Approach (ICD-10-PCS; principal; 2023-05-10)
PROC: 30233J1 Transfusion of Nonautologous Serum Albumin into Peripheral Vein, Percutaneous Approach (ICD-10-PCS; 2023-05-14)
PROC: 0W9G3ZZ Drainage of Peritoneal Cavity, Percutaneous Approach (ICD-10-PCS; 2023-05-15)
DX: K74.60 Unspecified cirrhosis of liver (principal); E44.0 Moderate protein-calorie malnutrition; E87.20 Acidosis, unspecified; N17.9 Acute kidney failure, unspecified; R18.8 Other ascites; E87.1 Hypo-osmolality and hyponatremia; I95.9 Hypotension, unspecified; K76.82 Hepatic encephalopathy; K72.90 Hepatic failure, unspecified without coma; D50.9 Iron deficiency anemia, unspecified; N18.9 Chronic kidney disease, unspecified; Z66 Do not resuscitate; D63.8 Anemia in other chronic diseases classified elsewhere; D69.59 Other secondary thrombocytopenia; I12.9 Hypertensive chronic kidney disease with stage 1 through stage 4 chronic kidney disease, or unspecified chronic kidney disease; E86.0 Dehydration; K21.9 Gastro-esophageal reflux disease without esophagitis; T47.3X6A Underdosing of saline and osmotic laxatives, initial encounter; E87.6 Hypokalemia; T47.1X5A Adverse effect of other antacids and anti-gastric-secretion drugs, initial encounter; E87.70 Fluid overload, unspecified; T50.916A Underdosing of multiple unspecified drugs, medicaments and biological substances, initial encounter; Z96.643 Presence of artificial hip joint, bilateral; Z68.27 Body mass index [BMI] 27.0-27.9, adult; Z91.148 Patient's other noncompliance with medication regimen for other reason; Z28.310 Unvaccinated for COVID-19; Z87.19 Personal history of other diseases of the digestive system; Z85.42 Personal history of malignant neoplasm of other parts of uterus; Z79.899 Other long term (current) drug therapy; Z88.5 Allergy status to narcotic agent; Z88.8 Allergy status to other drugs, medicaments and biological substances; Z88.1 Allergy status to other antibiotic agents
CPT/HCPCS: 36415; 49083; 76705; 76770; 80048; 80053; 81001; 82042; 82140; 82728; 83540; 83550; 83605; 83735; 84100; 84157; 84484; 85025; 85610; 85730; 88108; 88305; 88341; 88342; 89050; 93005; 94760; 96361; 96365; 96366; 99285

== ENCOUNTER 2023-05-29 21:39 | Inpatient (IN) | payer MEDICARE ==
--- NOTE | 2023-05-29 22:41 | ED ---
General Adult HPI - General Chief complaint: Recheck/Abnormal Lab/Rx Stated complaint: confusion, vomiting Time Seen by Provider: 05/29/23 22:21 Source: patient, family, RN notes reviewed, old records reviewed Mode of arrival: wheelchair Limitations: no limitations - History of Present Illness Initial comments: 72-year-old female with worsening kidney function presenting with some confusion and vomiting. Patient accompanied with her daughter who is able to give detailed history. Patient has had issues with ascites and needing recurrent Ur centesis. She had lab drawn earlier this week and it was noted that the patient's kidney function have been worsening. She does have chronic kidney disease. Patient denies chest pain or abdominal pain. No fever. No abdominal pain but does report abdominal distention. - Related Data Home Medications Medication Instructions Recorded Confirmed Omeprazole [PriLOSEC] 20 mg PO DAILY 06/15/19 05/09/23 Ferrous Sulfate [Iron (65 MG 325 mg PO MOWEFR 01/10/22 05/09/23 Elemental)] Metoprolol Tartrate [Lopressor] 50 mg PO DAILY 01/10/22 05/09/23 Lactulose 20 gm PO TID PRN 05/09/23 05/09/23 Magnesium 200 mg PO DAILY 05/09/23 05/09/23 Previous Rx's Medication Instructions Recorded Furosemide [Lasix] 20 mg PO DAILY #30 tab 05/16/23 Loperamide [Imodium] 2 mg PO DAILY PRN #0 05/16/23 Midodrine [ProAmatine] 5 mg PO AC-TID #90 tab 05/16/23 Spironolactone [Aldactone] 50 mg PO BID 30 Days #120 tab 05/16/23 Allergies Allergy/AdvReac Type Severity Reaction Status Date / Time hydromorphone [From Dilaudid] Allergy Severe Rash/Hives Verified 05/29/23 21:46 cephalexin [From Keflex] Allergy Rash/Hives Verified 05/29/23 21:46 guaifenesin [From Entex LA] Allergy Rash/Hives Verified 05/29/23 21:46 levofloxacin [From Levaquin] Allergy Rash/Hives Verified 05/29/23 21:46 phenylephrine [From Entex LA] Allergy Rash/Hives Verified 05/29/23 21:46 phenylpropanolamine Allergy Rash/Hives Verified 05/29/23 21:46 [From Entex LA] Review of Systems ROS Statement: Those systems with pertinent positive or pertinent negative responses have been documented in the HPI. ROS Other: All systems not noted in ROS Statement are negative. Past Medical History Past Medical History: Cancer, GERD/Reflux, Hypertension, Liver Disease Additional Past Medical History / Comment(s): feet swelling, hx. endometrial cancer 2001, frequent diarrhea for months, hx. colon polyps, slight murmur per pt-no tx. for History of Any Multi-Drug Resistant Organisms: None Reported Past Surgical History: Cholecystectomy, Hysterectomy, Joint Replacement, Orthopedic Surgery Additional Past Surgical History / Comment(s): colonoscopies, maryellen. hip replaced, left wrist surg., left foot surg., arthroscopy left knee, right knee surg, large volume paracentesis Past Anesthesia/Blood Transfusion Reactions: No Reported Reaction Additional Past Anesthesia/Blood Transfusion Reaction / Comment(s): usually slow to wake up Past Psychological History: No Psychological Hx Reported Smoking Status: Never smoker Past Alcohol Use History: None Reported Past Drug Use History: None Reported - Past Family History Mother Family Medical History: No Reported History Father Family Medical History: Coronary Artery Disease (CAD) General Exam Limitations: no limitations General appearance: alert, in no apparent distress Head exam: Present: atraumatic, normocephalic Eye exam: Present: normal appearance, PERRL ENT exam: Present: normal exam Neck exam: Present: normal inspection. Absent: tenderness, meningismus Respiratory exam: Present: normal lung sounds bilaterally. Absent: respiratory distress, wheezes Cardiovascular Exam: Present: regular rate, normal rhythm, systolic murmur GI/Abdominal exam: Present: distended. Absent: tenderness, guarding Neurological exam: Present: alert, oriented X3, CN II-XII intact. Absent: motor sensory deficit Psychiatric exam: Present: normal affect, normal mood Skin exam: Present: warm, dry, intact. Absent: cyanosis, diaphoretic Course Vital Signs 05/29/23 05/29/23 05/30/23 21:42 23:00 01:00 Temperature 98.0 F Pulse Rate 54 L 59 L 54 L Respiratory 16 16 16 Rate Blood Pressure 138/69 122/70 129/60 O2 Sat by Pulse 100 100 96 Oximetry Medical Decision Making - Medical Decision Making Was pt. sent in by a medical professional or institution (Dr., PA, [employer], urgent care, hospital, or senior living...) When possible be specific @ -No Did you speak to anyone other than the patient for history (EMS, parent, family, police, friend...)? What history was obtained from this source @ -No Did you review nursing and triage notes (agree or disagree)? Why? @ -I reviewed and agree with nursing and triage notes Were old charts reviewed (outside hosp., previous admission, EMS record, old EKG, old radiological studies, urgent care reports/EKG's, senior living records)? Report findings @ -No old charts were reviewed Differential Diagnosis (chest pain, altered mental status, abdominal pain women, abdominal pain men, vaginal bleeding, weakness, fever, dyspnea, syncope, headache, dizziness, GI bleed, back pain, seizure, CVA, palpatations, mental health, musculoskeletal)? @ Differential Weakness: Hypoglycemia, shock, sepsis, hyponatremia, anemia, infection, AK, ETOH, adverse medicine reaction, overdose, stroke, this is not meant to be an all-inclusive list. EKG interpreted by me (3pts min.). @ -EKG: Sinus bradycardia rate of 55, KS interval 118, QRS duration 86, QTC 462, no ST segment elevation. X-rays interpreted by me (1pt min.). @ -Cardiomegaly with CHF CT interpreted by me (1pt min.). @ -None done U/S interpreted by me (1pt. min.). @ -None done What testing was considered but not performed or refused? (CT, X-rays, U/S, labs)? Why? @ -None What meds were considered but not given or refused? Why? @ -None Did you discuss the management of the patient with other professionals (professionals i.e. ANNE Lee, [employer], lab, RT, psych nurse, social contact worker, community representative, teacher, fire control officer, correctional counselor/case manager)? Give summary @ -No Was smoking cessation discussed for >3mins.? @ -No Was critical care preformed (if so, how long)? @ -No Were there social determinants of health that impacted care today? How? (Homelessness, low income, unemployed, alcoholism, drug addiction, transportation, low edu. Level, literacy, decrease access to med. care, alf, rehab)? @ -No Was there de-escalation of care discussed even if they declined (Discuss DNR or withdrawal of care, Hospice)? DNR status @ -No What co-morbidities impacted this encounter? (DM, HTN, Smoking, COPD, CAD, Canc er, CVA, ARF, Chemo, Hep., AIDS, mental health diagnosis, sleep apnea, morbid obesity)? @ -Chronic kidney disease, liver failure Was patient admitted / discharged? Hospital course, mention meds given and route, prescriptions, significant lab abnormalities, going to OR and other pertinent info. @ -[72-year-old female presenting with abdominal distention, confusion, and nausea vomiting. Patient is likely developing hepatorenal syndrome she has hyperammonemia with an ammonia of 104, she has hypoalbuminemia and elevated BUN and creatinine. She will benefit from lactulose and likely paracentesis. She will be admitted with interventional radiology on consult. @ Drug Therapy requiring intensive monitoring for toxicity (Heparin, Nitro, Insulin, Cardizem)? @ -No Were any procedures done? @ -No Diagnosis/symptom? @ -Hepatorenal syndrome, hyperammonemia, ascites Acute, or Chronic, or Acute on Chronic? @ -[Acute on chronic Uncomplicated (without systemic symptoms) or Complicated (systemic symptoms)? @ -complicated Side effects of treatment? @ -No Exacerbation, Progression, or Severe Exacerbation? @ -No Poses a threat to life or bodily function? How? (Chest pain, USA, AK, pneumonia, PE, COPD, DKA, ARF, appy, cholecystitis, CVA, Diverticulitis, Homicidal, Suicidal, threat to staff... and all critical care pts) @ -[Yes, worsening kidney function - Lab Data Result diagrams: 05/29/23 23:00 05/29/23 23:00 Lab Results 05/29/23 05/29/23 05/29/23 Range/Units 23:00 23:00 23:00 WBC 5.6 (3.8-10.6) k/uL RBC 3.20 L (3.80-5.40) m/uL Hgb 9.2 L (11.4-16.0) gm/dL Hct 27.0 L (34.0-46.0) % MCV 84.4 (80.0-100.0) fL MCH 28.8 (25.0-35.0) pg MCHC 34.1 (31.0-37.0) g/dL RDW 15.8 H (11.5-15.5) % Plt Count 78 L (150-450) k/uL MPV 7.7 Neutrophils % 73 % Lymphocytes % 15 % Monocytes % 8 % Eosinophils % 2 % Basophils % 0 % Neutrophils # 4.0 (1.3-7.7) k/uL Lymphocytes # 0.9 L (1.0-4.8) k/uL Monocytes # 0.5 (0-1.0) k/uL Eosinophils # 0.1 (0-0.7) k/uL Basophils # 0.0 (0-0.2) k/uL RBC Morphology Normal PT 10.2 (9.0-12.0) sec INR 1.0 (<1.2) APTT 24.8 (22.0-30.0) sec Sodium 123 L (137-145) mmol/L Potassium 4.1 (3.5-5.1) mmol/L Chloride 94 L (98-107) mmol/L Carbon Dioxide 19 L (22-30) mmol/L Anion Gap 10 mmol/L BUN 70 H (7-17) mg/dL Creatinine 2.56 H (0.52-1.04) mg/dL Est GFR (CKD-EPI)AfAm 21 (>60 ml/min/1.73 sqM) Est GFR (CKD-EPI)NonAf 18 (>60 ml/min/1.73 sqM) Glucose 132 H (74-99) mg/dL Plasma Lactic Acid Richard (0.7-2.0) mmol/L Calcium 8.0 L (8.4-10.2) mg/dL Magnesium 2.2 (1.6-2.3) mg/dL Total Bilirubin 0.7 (0.2-1.3) mg/dL AST 21 (14-36) U/L ALT 18 (4-34) U/L Alkaline Phosphatase 78 (38-126) U/L Ammonia (<30) umol/L NT-Pro-B Natriuret Pep 1210 pg/mL Total Protein 5.4 L (6.3-8.2) g/dL Albumin 2.6 L (3.5-5.0) g/dL 08/09/23 08/10/23 Range/Units 23:53 01:09 WBC (3.8-10.6) k/uL RBC (3.80-5.40) m/uL Hgb (11.4-16.0) gm/dL Hct (34.0-46.0) % MCV (80.0-100.0) fL MCH (25.0-35.0) pg MCHC (31.0-37.0) g/dL RDW (11.5-15.5) % Plt Count (150-450) k/uL MPV Neutrophils % % Lymphocytes % % Monocytes % % Eosinophils % % Basophils % % Neutrophils # (1.3-7.7) k/uL Lymphocytes # (1.0-4.8) k/uL Monocytes # (0-1.0) k/uL Eosinophils # (0-0.7) k/uL Basophils # (0-0.2) k/uL RBC Morphology PT (9.0-12.0) sec INR (<1.2) APTT (22.0-30.0) sec Sodium (137-145) mmol/L Potassium (3.5-5.1) mmol/L Chloride (98-107) mmol/L Carbon Dioxide (22-30) mmol/L Anion Gap mmol/L BUN (7-17) mg/dL Creatinine (0.52-1.04) mg/dL Est GFR (CKD-EPI)AfAm (>60 ml/min/1.73 sqM) Est GFR (CKD-EPI)NonAf (>60 ml/min/1.73 sqM) Glucose (74-99) mg/dL Plasma Lactic Acid Richard 2.2 H* (0.7-2.0) mmol/L Calcium (8.4-10.2) mg/dL Magnesium (1.6-2.3) mg/dL Total Bilirubin (0.2-1.3) mg/dL AST (14-36) U/L ALT (4-34) U/L Alkaline Phosphatase (38-126) U/L Ammonia 115 H 104 H (<30) umol/L NT-Pro-B Natriuret Pep pg/mL Total Protein (6.3-8.2) g/dL Albumin (3.5-5.0) g/dL Disposition Clinical Impression: Hyperammonemia, Hepatorenal syndrome, Ascites Disposition: ADMITTED IP TO THIS HOSP Condition: Stable Is patient prescribed a controlled substance at d/c from ED?: No Referrals: Danielito Perez MD [Primary Care Provider] - 1-2 days Time of Disposition: 02:12
[2023-05-29 23:14] LABS: Basophils % (A) 0 %; Eosinophils # (A) 0.1 k/uL (0-0.7); Eosinophils % (A) 2 %; HGB 9.2 gm/dL (11.4-16.0); Lymphocytes # (A) 0.9 k/uL (1.0-4.8); Lymphocytes % (A) 15 %; MCH 28.8 pg (25.0-35.0); MCHC 34.1 g/dL (31.0-37.0); MCV 84.4 fL (80.0-100.0); Mean Platelet Volume 7.7; Monocytes # (A) 0.5 k/uL (0-1.0); Monocytes % (A) 8 %; Neutrophils % (A) 73 %; RDW 15.8 % (11.5-15.5); WBC 5.6 k/uL (3.8-10.6)
[2023-05-29 23:15] LABS: Platelet Count 78 k/uL (150-450)
[2023-05-29 23:19] LABS: Partial Thromboplastin Time 24.8 sec (22.0-30.0); Prothrombin Time 10.2 sec (9.0-12.0)
[2023-05-29 23:21] LABS: ALT 18 U/L (4-34); AST 21 U/L (14-36); African American GFR (CKD) 21 (>60 ml/min/1.73 sqM); Albumin 2.6 g/dL (3.5-5.0); Alkaline Phosphatase 78 U/L (38-126); Anion Gap 10 mmol/L; Blood Urea Nitrogen 70 mg/dL (7-17); Carbon Dioxide 19 mmol/L (22-30); Chloride 94 mmol/L (98-107); Glucose 132 mg/dL (74-99); Magnesium 2.2 mg/dL (1.6-2.3); Non-African American GFR(CKD) 18 (>60 ml/min/1.73 sqM); Potassium 4.1 mmol/L (3.5-5.1); Sodium 123 mmol/L (137-145); Total Bilirubin 0.7 mg/dL (0.2-1.3); Total Protein 5.4 g/dL (6.3-8.2)
[2023-05-29 23:29] LABS: NT-Pro-B-Type Natriuretic Pept 1210 pg/mL
--- NOTE | 2023-05-29 23:47 | XR ---
EXAM: XR Chest, 2 Views CLINICAL HISTORY: ITS.REASON XR Reason: Weakness TECHNIQUE: Frontal and lateral views of the chest. COMPARISON: No previous studies. FINDINGS: Lungs: Prominence of central pulmonary vascular. Mild interstitial prominence. Pleural space: Unremarkable. No pneumothorax. Heart: Cardiomegaly. Mediastinum: Unremarkable. Bones/joints: Osteopenia. Moderate to severe degenerative disc disease of the thoracic spine. Other findings: Hypoaeration. IMPRESSION: 1. Cardiomegaly. 2. Consider incipient congestive heart failure. 3. Atherosclerotic disease. 4. Osteopenia.
[2023-05-30 00:08] LABS: RBC Morphology Normal
[2023-05-30 00:46] LABS: Lactic Acid, Venous 2.2 mmol/L (0.7-2.0)
[2023-05-30] MEDS ORDERED: NALOXONE 0.4 MG/ML 1 ML VIAL IV PRN (02:09)
[2023-05-30] MEDS ORDERED: LACTULOSE 20 GM/30 ML CUP PO SCH (02:15)
[2023-05-30 02:18] LABS: Appearance,Urine Cloudy (Clear); Bacteria,Urine Rare /hpf; Bilirubin,Urine Negative (Negative); Blood,Urine Trace (Negative); Color,Urine Light Red; Glucose,Urine (UA) Negative (Negative); Hyaline Casts,Urine 6 /lpf (0-2); Ketones,Urine Negative (Negative); Leukocyte Esterase,Urine Large (Negative); Mucus,Urine Rare /hpf; Nitrite,Urine Negative (Negative); Protein,Urine Negative (Negative); RBC,Urine 3 /hpf (0-5); Specific Gravity,Urine 1.015 (1.001-1.035); Squamous Epithelial Cell,Urine 5 /hpf (0-4); Urobilinogen,Urine <2.0 mg/dL (<2.0); WBC,Urine 9 /hpf (0-5)
[2023-05-30] MEDS ORDERED: ONDANSETRON 4 MG/2 ML VIAL IVP PRN (07:15)
[2023-05-30 07:56] LABS: Basophils % (A) 0 %; Eosinophils # (A) 0.1 k/uL (0-0.7); Eosinophils % (A) 1 %; HCT 27.8 % (34.0-46.0); HGB 9.2 gm/dL (11.4-16.0); Lymphocytes # (A) 0.9 k/uL (1.0-4.8); Lymphocytes % (A) 20 %; MCH 27.9 pg (25.0-35.0); MCHC 33.1 g/dL (31.0-37.0); MCV 84.1 fL (80.0-100.0); Mean Platelet Volume 7.8; Monocytes # (A) 0.4 k/uL (0-1.0); Monocytes % (A) 8 %; Neutrophils % (A) 69 %; RDW 15.8 % (11.5-15.5); WBC 4.4 k/uL (3.8-10.6)
[2023-05-30 08:01] LABS: Platelet Count 70 k/uL (150-450)
[2023-05-30] MEDS: MIDODRINE 5 MG TAB PO SCH ×3 (08:15→17:35)
[2023-05-30] MEDS: FUROSEMIDE 20 MG TAB PO SCH (08:15)
[2023-05-30] MEDS: PANTOPRAZOLE 40 MG TABLET PO SCH (10:28)
--- NOTE | 2023-05-30 11:18 | P.GSCN ---
History of Present Illness Consult date: 05/30/23 History of present illness: CHIEF COMPLAINT: Confusion and vomiting HISTORY OF PRESENT ILLNESS: This is a 72-year-old female who presented to the hospital with confusion and vomiting. Patient has known history of liver cirrhosis requiring recurrent paracentesis. Patient apparently had labs drawn and was noted to have worsening kidney function. And patient has elevated ammonia level. Patient was started on lactulose. She was having multiple stools. Patient started to have bloody stools stool for occult blood was positive. Hemoglobin is stable at 9.2. She had a "[facility]" called this morning due to bloody bowel movements and was transferred to the cardiac floor. Vitals stable. She's had no further bloody bowel movements. Last stool was liquidy and brown. Colonoscopy reported in 2019 with 14 colon Polyps removed. Patient's last colonoscopy was the end of last year at [facility] and again had colon polyps removed. Patient is a poor historian and most of her information was obtained from chart and daughter Patient denies abdominal pain. Denies any vomiting. She did report some nausea. PAST MEDICAL HISTORY: See list. PAST SURGICAL HISTORY: See list. MEDICATIONS: See list. ALLERGIES: See list. SOCIAL HISTORY: No illicit drug use. REVIEW OF SYSTEMS: CONSTITUTIONAL: Denies fever or chills. HEENT: Denies blurred vision, vision changes, or eye pain. Denies hemoptysis ENDOCRINE: Denies heat or cold intolerance. CARDIOVASCULAR: Denies chest pain or pressure. RESPIRATORY: No shortness of breath. GASTROINTESTINAL: Please refer to HPI NEURO: Denies history of seizures. PSYCH: No depression or suicidal ideation HEMATOLOGIC: Denies bleeding disorders. LYMPHATIC: The patient denies any lumps and bumps around the neck. GENITOURINARY: Denies any blood in urine or increased urinary frequency. MUSCULOSKELETAL: Denies myalgias. Denies joint swelling. Denies decreased range of motion beyond patients baseline. SKIN: Denies pruitis. Denies rash. PHYSICAL EXAM: VITAL SIGNS: Reviewed GENERAL: Well-developed in no acute distress. HEENT: No sclera icterus. Extraocular movements grossly intact. Moist buccal mucosa. Head is atraumatic, normocephalic. Hears conversational speech. No nasal drainage. NECK: Supple without lymphadenopathy. CHEST: Non-labored respirations and equal bilateral excursions. CARDIOVASCULAR: Palpable 2+ radial pulses. ABDOMEN: Soft. Distended. Ascites present. Nontender MUSCULOSKELETAL: No clubbing or cyanosis. NEUROLOGIC: No focal or lateralizing signs. Cranial nerves II through XII grossly intact. PSYCH: awake and alert but confused SKIN: Well perfused. Good skin turgor. LABORATORY DATA: WBC 4.4 Hgb 9.2 and remained 9.2 on repeat. Hemoglobin in April 2023 8.5 Platelets 70 Sodium 123 potassium 4.1 creatinine 2.56 lactic acid 2.2 down to 1.3 LFTs normal Magnesium 2.2 Ammonia 115 down to 104 Albumin 2.6 Stool for occult blood positive IMAGING: Chest x-ray cardiomegaly. Consider incipient congestive heart failure. Atherosclerotic disease. Osteopenia. ASSESSMENT: 1. Acute GI bleed with bloody stools. Stool for occult blood positive 2. History of multiple colon polyps 3. History of liver cirrhosis requiring recurrent paracentesis 4. Hepatorenal syndrome 5. Thrombocytopenia 6. Hyponatremia 7. Elevated ammonia level PLAN: -Patient scheduled for EGD tomorrow, 05/31/[address] Baeza -Regular diet today -Nothing by mouth after midnight -Continue to monitor any signs or symptoms of bleeding -Repeat CBC in a.m. Physician Transformer Mechanic note has been reviewed by physician. Signing provider agrees with the documented findings, assessment, and plan of care. Past Medical History Past Medical History: Cancer, GERD/Reflux, Hypertension, Liver Disease Additional Past Medical History / Comment(s): feet swelling, hx. endometrial cancer 2001, frequent diarrhea for months, hx. colon polyps, slight murmur per pt-no tx. for History of Any Multi-Drug Resistant Organisms: None Reported Past Surgical History: Cholecystectomy, Hysterectomy, Joint Replacement, Orthopedic Surgery Additional Past Surgical History / Comment(s): colonoscopies, maryellen. hip replaced, left wrist surg., left foot surg., arthroscopy left knee, right knee surg, large volume paracentesis Past Anesthesia/Blood Transfusion Reactions: No Reported Reaction Additional Past Anesthesia/Blood Transfusion Reaction / Comm: usually slow to wake up Past Psychological History: No Psychological Hx Reported Smoking Status: Never smoker Past Alcohol Use History: None Reported Past Drug Use History: None Reported - Past Family History Mother Family Medical History: No Reported History Father Family Medical History: Coronary Artery Disease (CAD) Medications and Allergies Home Medications Medication Instructions Recorded Confirmed Type Omeprazole [PriLOSEC] 20 mg PO DAILY 06/15/19 05/30/23 History Ferrous Sulfate [Iron (65 MG 325 mg PO MOWEFR 01/10/22 05/30/23 History Elemental)] Metoprolol Tartrate [Lopressor] 50 mg PO DAILY 01/10/22 05/30/23 History Lactulose 20 gm PO TID PRN 05/09/23 05/30/23 History Magnesium 200 mg PO DAILY 05/09/23 05/30/23 History Furosemide [Lasix] 20 mg PO DAILY #30 tab 05/16/23 05/30/23 Rx Loperamide [Imodium] 2 mg PO DAILY PRN #0 05/16/23 05/30/23 Rx Midodrine [ProAmatine] 5 mg PO AC-TID #90 tab 05/16/23 05/30/23 Rx Spironolactone [Aldactone] 50 mg PO BID 30 Days #120 tab 05/16/23 05/30/23 Rx Ondansetron Odt [Zofran Odt] 4 mg PO Q8H PRN 05/30/23 05/30/23 History Allergies Allergy/AdvReac Type Severity Reaction Status Date / Time hydromorphone [From Dilaudid] Allergy Severe Rash/Hives Verified 05/30/23 09:44 cephalexin [From Keflex] Allergy Rash/Hives Verified 05/30/23 09:44 guaifenesin [From Entex LA] Allergy Rash/Hives Verified 05/30/23 09:44 levofloxacin [From Levaquin] Allergy Rash/Hives Verified 05/30/23 09:44 phenylephrine [From Entex LA] Allergy Rash/Hives Verified 05/30/23 09:44 phenylpropanolamine Allergy Rash/Hives Verified 05/30/23 09:44 [From Entex LA] Surgical - Exam Vital Signs Temp Pulse Resp BP Pulse Ox 98.0 F 54 L 16 138/69 100 05/29/23 21:42 05/29/23 21:42 05/29/23 21:42 05/29/23 21:42 05/29/23 21:42 Results - Labs 05/30/23 07:28 05/29/23 23:00 Abnormal Lab Results - Last 24 Hours (Table) 05/29/23 05/29/23 05/29/23 Range/Units 23:00 23:00 23:53 RBC 3.20 L (3.80-5.40) m/uL Hgb 9.2 L (11.4-16.0) gm/dL Hct 27.0 L (34.0-46.0) % RDW 15.8 H (11.5-15.5) % Plt Count 78 L (150-450) k/uL Lymphocytes # 0.9 L (1.0-4.8) k/uL Sodium 123 L (137-145) mmol/L Chloride 94 L (98-107) mmol/L Carbon Dioxide 19 L (22-30) mmol/L BUN 70 H (7-17) mg/dL Creatinine 2.56 H (0.52-1.04) mg/dL Glucose 132 H (74-99) mg/dL Plasma Lactic Acid Richard 2.2 H* (0.7-2.0) mmol/L Calcium 8.0 L (8.4-10.2) mg/dL Ammonia 115 H (<30) umol/L Total Protein 5.4 L (6.3-8.2) g/dL Albumin 2.6 L (3.5-5.0) g/dL Urine Appearance (Clear) Urine Blood (Negative) Ur Leukocyte Esterase (Negative) Urine WBC (0-5) /hpf Ur Squamous Epith Cells (0-4) /hpf Urine Bacteria (None) /hpf Hyaline Casts (0-2) /lpf Urine Mucus (None) /hpf Stool Occult Blood (Negative) 05/30/23 05/30/23 05/30/23 Range/Units 01:09 01:48 06:44 RBC (3.80-5.40) m/uL Hgb (11.4-16.0) gm/dL Hct (34.0-46.0) % RDW (11.5-15.5) % Plt Count (150-450) k/uL Lymphocytes # (1.0-4.8) k/uL Sodium (137-145) mmol/L Chloride (98-107) mmol/L Carbon Dioxide (22-30) mmol/L BUN (7-17) mg/dL Creatinine (0.52-1.04) mg/dL Glucose (74-99) mg/dL Plasma Lactic Acid Richard (0.7-2.0) mmol/L Calcium (8.4-10.2) mg/dL Ammonia 104 H (<30) umol/L Total Protein (6.3-8.2) g/dL Albumin (3.5-5.0) g/dL Urine Appearance Cloudy H (Clear) Urine Blood Trace H (Negative) Ur Leukocyte Esterase Large H (Negative) Urine WBC 9 H (0-5) /hpf Ur Squamous Epith Cells 5 H (0-4) /hpf Urine Bacteria Rare H (None) /hpf Hyaline Casts 6 H (0-2) /lpf Urine Mucus Rare H (None) /hpf Stool Occult Blood Positive H (Negative) 05/30/23 Range/Units 07:28 RBC 3.30 L (3.80-5.40) m/uL Hgb 9.2 L (11.4-16.0) gm/dL Hct 27.8 L (34.0-46.0) % RDW 15.8 H (11.5-15.5) % Plt Count 70 L (150-450) k/uL Lymphocytes # 0.9 L (1.0-4.8) k/uL Sodium (137-145) mmol/L Chloride (98-107) mmol/L Carbon Dioxide (22-30) mmol/L BUN (7-17) mg/dL Creatinine (0.52-1.04) mg/dL Glucose (74-99) mg/dL Plasma Lactic Acid Richard (0.7-2.0) mmol/L Calcium (8.4-10.2) mg/dL Ammonia (<30) umol/L Total Protein (6.3-8.2) g/dL Albumin (3.5-5.0) g/dL Urine Appearance (Clear) Urine Blood (Negative) Ur Leukocyte Esterase (Negative) Urine WBC (0-5) /hpf Ur Squamous Epith Cells (0-4) /hpf Urine Bacteria (None) /hpf Hyaline Casts (0-2) /lpf Urine Mucus (None) /hpf Stool Occult Blood (Negative) Diabetes panel 05/29/23 Range/Units 23:00 Sodium 123 L (137-145) mmol/L Potassium 4.1 (3.5-5.1) mmol/L Chloride 94 L (98-107) mmol/L Carbon Dioxide 19 L (22-30) mmol/L BUN 70 H (7-17) mg/dL Creatinine 2.56 H (0.52-1.04) mg/dL Glucose 132 H (74-99) mg/dL Calcium 8.0 L (8.4-10.2) mg/dL AST 21 (14-36) U/L ALT 18 (4-34) U/L Alkaline Phosphatase 78 (38-126) U/L Total Protein 5.4 L (6.3-8.2) g/dL Albumin 2.6 L (3.5-5.0) g/dL Calcium panel 05/29/23 Range/Units 23:00 Calcium 8.0 L (8.4-10.2) mg/dL Albumin 2.6 L (3.5-5.0) g/dL Pituitary panel 05/29/23 Range/Units 23:00 Sodium 123 L (137-145) mmol/L Potassium 4.1 (3.5-5.1) mmol/L Chloride 94 L (98-107) mmol/L Carbon Dioxide 19 L (22-30) mmol/L BUN 70 H (7-17) mg/dL Creatinine 2.56 H (0.52-1.04) mg/dL Glucose 132 H (74-99) mg/dL Calcium 8.0 L (8.4-10.2) mg/dL Adrenal panel 05/29/23 Range/Units 23:00 Sodium 123 L (137-145) mmol/L Potassium 4.1 (3.5-5.1) mmol/L Chloride 94 L (98-107) mmol/L Carbon Dioxide 19 L (22-30) mmol/L BUN 70 H (7-17) mg/dL Creatinine 2.56 H (0.52-1.04) mg/dL Glucose 132 H (74-99) mg/dL Calcium 8.0 L (8.4-10.2) mg/dL Total Bilirubin 0.7 (0.2-1.3) mg/dL AST 21 (14-36) U/L ALT 18 (4-34) U/L Alkaline Phosphatase 78 (38-126) U/L Total Protein 5.4 L (6.3-8.2) g/dL Albumin 2.6 L (3.5-5.0) g/dL
[2023-05-30] MEDS: LACTULOSE 20 GM/30 ML CUP PO SCH ×2 (14:54→20:39)
[2023-05-30] MEDS: ALBUMIN HUMAN 25% 50 ML in EMPTY BAG 1 BAG IVPB SCH ×3 (15:29→16:02)
--- NOTE | 2023-05-30 16:27 | US ---
INDICATION: Patient age:Female; 72 years old; Reason for study: Ascites; [facility]. COMPARISON: Ultrasound paracentesis 05/15/2023 PROCEDURE: Informed consent was obtained. The risks of the procedure were extensively explained incl uding risk of damage to surrounding bowel with perforation and need for additional procedures. Proced ure was performed in the ultrasound procedure suite. Ultrasound imaging of the abdomen demonstrate as citic fluid. An appropriate access site was localized to the right flank. Timeout was taken per jessica col. The skin was prepped and draped in the usual sterile fashion and then locally anesthetized with 1% lidocaine. The peritoneal cavity was then accessed via a 5-Egyptian one-step needle/catheter. Appr oximately 7.5 liters of clear straw-colored fluid was obtained. Patient tolerated procedure well without immediate complication. Hemostasis at the procedural site w as obtained with a sterile bandage placed. The patient was monitored in the holding area following th e procedure and was subsequently sent back to their room in stable condition. IMPRESSION: Ultrasound guided paracentesis, with approximately 7.5 L of clear straw-colored fluid drained. No imm ediate complications were evident.
--- NOTE | 2023-05-30 18:29 | P.HPIM ---
History of Present Illness H&P Date: 05/30/23 Chief Complaint: Some confusion This is a 72-year-old patient, follows with Dr. Perez. Also follow-up with a prospecting observer out of [facility]. Patient is brought to the ER with increasing lethargy and confusion. Distended abdomen. More lethargic. Patient said he had 3-5 bowel movements this morning. Lactulose was held this morning. Denies any pain. No fever no chills. Patient is rather slow to give any history. We've review of notes of Dr. Alexsander Izaguirre from last month shows she's been diagnosed with cirrhosis about 2 years ago. Gets regular paracentesis is [place]. Follows at [facility] with . Cause of cirrhosis is unclear. Denies any fever and chills. Denies any obvious urinary or respiratory symptoms. Review of systems: GEN.: Tired, decreased appetite EYES: None HEENT: None NECK: None RESPIRATORY: None CARDIOVASCULAR: None GASTROINTESTINAL: Stented abdomen GENITOURINARY: None MUSCULOSKELETAL: None LYMPHATICS: None HEMATOLOGICAL: Bruising PSYCHIATRY: None NEUROLOGICAL: Slow to answer questions Past medical history to include: GERD, hypertension, cirrhosis, and a medical cancer 2001, Social history: Lives with her daughter. Denied history of alcohol or smoking. Physical examination: VITAL SIGNS: 98, 54, 16, 1 38 x 69, 100% on room air GENERAL: BMI 24.4, laying in bed awake tired. Bruising EYES: Pupils equal. Conjunctiva normal. HEENT: External appearance of nose and ears normal, oral cavity grossly normal. NECK: JVD not raised; masses not palpable. HEART: First and second heart sounds are normal; no edema. LUNGS: Respiratory rate normal; clear to auscultation. ABDOMEN: Soft, distended nontender, liver spleen not palpable, no masses palpable. PSYCH: Slightly lethargic able to answer simple questions. Slow to answer.l. MUSCULOSKELETAL:No Clubbing/cyanosis;muscles-grossly intact NEUROLOGICAL: Cranial nerves grossly intact; no facial asymmetry, power and sensation grossly intact. LYMPHATICS: No lymph nodes palpable in the axilla and neck INVESTIGATIONS, reviewed in the clinical context: May 30: White count 4.4 hemoglobin 9.2 platelets 70 Stool occult blood positive May 29: White count 5.6 hemoglobin 9.2 platelets 78 sodium 123 potassium 4.1 BUN 70 creatinine 2.56 Ammonia 115, 104 EKG tracing personally reviewed by me-normal sinus rhythm. Rate 55. Chest x-ray film personally reviewed by me-unremarkable Assessment and plan: -Acute hepatic encephalopathy. Titrate lactulose to get 3-5 BMs a day. -Possible GI bleed could be from variceal bleed. GI services not available in the hospital. Surgery on-call consulted. -Large ascites. 4 paracentesis. Followed by albumin transfusion. Daughter earlier called the nurse to only carried out partial paracentesis is afraid about hepatorenal syndrome. This will be conveyed to the radiology department. -Portal hypertension Lopressor -Severe hypoalbuminemia from liver disease -Cirrhosis, cause unknown. Patient does follow-up at [facility]. -Chronic hypotension from underlying cirrhosis and hypoalbuminemia Midodrine -DO NOT RESUSCITATE. Past Medical History Past Medical History: Cancer, GERD/Reflux, Hypertension, Liver Disease Additional Past Medical History / Comment(s): feet swelling, hx. endometrial cancer 2001, frequent diarrhea for months, hx. colon polyps, slight murmur per pt-no tx. for History of Any Multi-Drug Resistant Organisms: None Reported Past Surgical History: Cholecystectomy, Hysterectomy, Joint Replacement, Orthopedic Surgery Additional Past Surgical History / Comment(s): colonoscopies, maryellen. hip replaced, left wrist surg., left foot surg., arthroscopy left knee, right knee surg, large volume paracentesis Past Anesthesia/Blood Transfusion Reactions: No Reported Reaction Additional Past Anesthesia/Blood Transfusion Reaction / Comment(s): usually slow to wake up Past Psychological History: No Psychological Hx Reported Smoking Status: Never smoker Past Alcohol Use History: None Reported Past Drug Use History: None Reported - Past Family History Mother Family Medical History: No Reported History Father Family Medical History: Coronary Artery Disease (CAD) Medications and Allergies Home Medications Medication Instructions Recorded Confirmed Type Omeprazole [PriLOSEC] 20 mg PO DAILY 06/15/19 05/30/23 History Ferrous Sulfate [Iron (65 MG 325 mg PO MOWEFR 01/10/22 05/30/23 History Elemental)] Metoprolol Tartrate [Lopressor] 50 mg PO DAILY 01/10/22 05/30/23 History Lactulose 20 gm PO TID PRN 05/09/23 05/30/23 History Magnesium 200 mg PO DAILY 05/09/23 05/30/23 History Furosemide [Lasix] 20 mg PO DAILY #30 tab 05/16/23 05/30/23 Rx Loperamide [Imodium] 2 mg PO DAILY PRN #0 05/16/23 05/30/23 Rx Midodrine [ProAmatine] 5 mg PO AC-TID #90 tab 05/16/23 05/30/23 Rx Spironolactone [Aldactone] 50 mg PO BID 30 Days #120 tab 05/16/23 05/30/23 Rx Ondansetron Odt [Zofran Odt] 4 mg PO Q8H PRN 05/30/23 05/30/23 History Allergies Allergy/AdvReac Type Severity Reaction Status Date / Time hydromorphone [From Dilaudid] Allergy Severe Rash/Hives Verified 05/30/23 09:44 cephalexin [From Keflex] Allergy Rash/Hives Verified 05/30/23 09:44 guaifenesin [From Entex LA] Allergy Rash/Hives Verified 05/30/23 09:44 levofloxacin [From Levaquin] Allergy Rash/Hives Verified 05/30/23 09:44 phenylephrine [From Entex LA] Allergy Rash/Hives Verified 05/30/23 09:44 phenylpropanolamine Allergy Rash/Hives Verified 05/30/23 09:44 [From Entex LA] Physical Exam Vitals: Vital Signs Temp Pulse Pulse Resp BP BP Pulse Ox 05/30/23 07:32 98.2 F 60 16 113/71 100 05/30/23 07:10 64 20 152/71 98 05/30/23 03:14 97.6 F 54 L 17 134/60 99 05/30/23 03:00 97.6 F 57 L 16 112/64 100 05/30/23 01:00 54 L 16 129/60 96 05/29/23 23:00 59 L 16 122/70 100 05/29/23 21:42 98.0 F 54 L 16 138/69 100 Intake and Output 05/29/23 05/30/23 05/30/23 22:59 06:59 14:59 Intake Total 500 240 Balance 500 240 Intake: Oral 500 240 Other: Voiding Method Bedpan Diaper # Bowel Movements 1 Weight 56.699 kg 56.699 kg Results CBC & Chem 7: 05/30/23 07:28 05/29/23 23:00 Labs: Abnormal Lab Results - Last 24 Hours (Table) 05/29/23 05/29/23 05/29/23 Range/Units 23:00 23:00 23:53 RBC 3.20 L (3.80-5.40) m/uL Hgb 9.2 L (11.4-16.0) gm/dL Hct 27.0 L (34.0-46.0) % RDW 15.8 H (11.5-15.5) % Plt Count 78 L (150-450) k/uL Lymphocytes # 0.9 L (1.0-4.8) k/uL Sodium 123 L (137-145) mmol/L Chloride 94 L (98-107) mmol/L Carbon Dioxide 19 L (22-30) mmol/L BUN 70 H (7-17) mg/dL Creatinine 2.56 H (0.52-1.04) mg/dL Glucose 132 H (74-99) mg/dL Plasma Lactic Acid Richard 2.2 H* (0.7-2.0) mmol/L Calcium 8.0 L (8.4-10.2) mg/dL Ammonia 115 H (<30) umol/L Total Protein 5.4 L (6.3-8.2) g/dL Albumin 2.6 L (3.5-5.0) g/dL Urine Appearance (Clear) Urine Blood (Negative) Ur Leukocyte Esterase (Negative) Urine WBC (0-5) /hpf Ur Squamous Epith Cells (0-4) /hpf Urine Bacteria (None) /hpf Hyaline Casts (0-2) /lpf Urine Mucus (None) /hpf Stool Occult Blood (Negative) 05/30/23 05/30/23 05/30/23 Range/Units 01:09 01:48 06:44 RBC (3.80-5.40) m/uL Hgb (11.4-16.0) gm/dL Hct (34.0-46.0) % RDW (11.5-15.5) % Plt Count (150-450) k/uL Lymphocytes # (1.0-4.8) k/uL Sodium (137-145) mmol/L Chloride (98-107) mmol/L Carbon Dioxide (22-30) mmol/L BUN (7-17) mg/dL Creatinine (0.52-1.04) mg/dL Glucose (74-99) mg/dL Plasma Lactic Acid Richard (0.7-2.0) mmol/L Calcium (8.4-10.2) mg/dL Ammonia 104 H (<30) umol/L Total Protein (6.3-8.2) g/dL Albumin (3.5-5.0) g/dL Urine Appearance Cloudy H (Clear) Urine Blood Trace H (Negative) Ur Leukocyte Esterase Large H (Negative) Urine WBC 9 H (0-5) /hpf Ur Squamous Epith Cells 5 H (0-4) /hpf Urine Bacteria Rare H (None) /hpf Hyaline Casts 6 H (0-2) /lpf Urine Mucus Rare H (None) /hpf Stool Occult Blood Positive H (Negative) 05/30/23 Range/Units 07:28 RBC 3.30 L (3.80-5.40) m/uL Hgb 9.2 L (11.4-16.0) gm/dL Hct 27.8 L (34.0-46.0) % RDW 15.8 H (11.5-15.5) % Plt Count 70 L (150-450) k/uL Lymphocytes # 0.9 L (1.0-4.8) k/uL Sodium (137-145) mmol/L Chloride (98-107) mmol/L Carbon Dioxide (22-30) mmol/L BUN (7-17) mg/dL Creatinine (0.52-1.04) mg/dL Glucose (74-99) mg/dL Plasma Lactic Acid Richard (0.7-2.0) mmol/L Calcium (8.4-10.2) mg/dL Ammonia (<30) umol/L Total Protein (6.3-8.2) g/dL Albumin (3.5-5.0) g/dL Urine Appearance (Clear) Urine Blood (Negative) Ur Leukocyte Esterase (Negative) Urine WBC (0-5) /hpf Ur Squamous Epith Cells (0-4) /hpf Urine Bacteria (None) /hpf Hyaline Casts (0-2) /lpf Urine Mucus (None) /hpf Stool Occult Blood (Negative) Thrombosis Risk Factor Assmnt - Choose All That Apply Any of the Below Risk Factors Present?: Yes Each Risk Factor Represents 2 Points: Age 61-74 years Thrombosis Risk Factor Assessment Total Risk Factor Score: 2 Thrombosis Risk Factor Assessment Level: Low Risk
[2023-05-30] MEDS ORDERED: MAGNESIUM OXIDE 400 MG TAB PO STA (19:30)
[2023-05-30] MEDS: METOPROLOL TARTRATE 12.5 MG TAB PO SCH (20:45)
[2023-05-30] MEDS: SPIRONOLACTONE 25 MG TAB PO SCH (20:45)
[2023-05-31 06:17] LABS: HCT 24.2 % (34.0-46.0); HGB 8.1 gm/dL (11.4-16.0); MCH 27.9 pg (25.0-35.0); MCHC 33.5 g/dL (31.0-37.0); MCV 83.2 fL (80.0-100.0); Mean Platelet Volume 7.7; Platelet Count 46 k/uL (150-450); RBC 2.91 m/uL (3.80-5.40); RDW 15.6 % (11.5-15.5); WBC 3.3 k/uL (3.8-10.6)
[2023-05-31 06:24] LABS: African American GFR (CKD) 22 (>60 ml/min/1.73 sqM); Anion Gap 7 mmol/L; Blood Urea Nitrogen 66 mg/dL (7-17); Calcium 7.9 mg/dL (8.4-10.2); Carbon Dioxide 21 mmol/L (22-30); Chloride 99 mmol/L (98-107); Glucose 106 mg/dL (74-99); Non-African American GFR(CKD) 19 (>60 ml/min/1.73 sqM); Potassium 3.9 mmol/L (3.5-5.1); Sodium 127 mmol/L (137-145)
[2023-05-31] MEDS: LACTULOSE 20 GM/30 ML CUP PO SCH ×4 (09:05→20:16)
[2023-05-31] MEDS: MIDODRINE 5 MG TAB PO SCH ×3 (09:08→16:21)
[2023-05-31] MEDS: SPIRONOLACTONE 25 MG TAB PO SCH ×2 (09:08→20:16)
[2023-05-31] MEDS: FERROUS SULFATE 325 MG TAB PO SCH (09:08)
[2023-05-31] MEDS: FUROSEMIDE 20 MG TAB PO SCH (09:08)
[2023-05-31] MEDS: METOPROLOL TARTRATE 12.5 MG TAB PO SCH ×2 (09:08→20:16)
[2023-05-31] MEDS: PANTOPRAZOLE 40 MG TABLET PO SCH (09:08)
--- NOTE | 2023-05-31 13:37 | P.PN ---
Subjective Progress Note Date: 05/31/23 CHIEF COMPLAINT: Confusion and vomiting HISTORY OF PRESENT ILLNESS: Surgical service following in regards to GI bleed. Patient has had no further bloody stools. Does have a known history of multiple colon polyps. He paracentesis yesterday with 7.5 L removed. Patient lying in bed comfortably. She is having multiple bowel movements while on the lactulose. Denies any abdominal pain. Denies any nausea vomiting. Afebrile. WBC is 3.3 Hgb 8.1 down from 9.2 platelets 46 sodium is 127 and creatinine 2.46 ammonia level [id number] PHYSICAL EXAM: VITAL SIGNS: Reviewed GENERAL: Well-developed in no acute distress. HEENT: No sclera icterus. Extraocular movements grossly intact. Moist buccal mucosa. Head is atraumatic, normocephalic. Hears conversational speech. No nasal drainage. NECK: Supple without lymphadenopathy. CHEST: Non-labored respirations and equal bilateral excursions. CARDIOVASCULAR: Palpable 2+ radial pulses. ABDOMEN: Soft. Nondistended. Nontender. MUSCULOSKELETAL: No clubbing or cyanosis. NEUROLOGIC: No focal or lateralizing signs. Cranial nerves II through XII grossly intact. PSYCH: Appropriate affect. Awake and alert SKIN: Well perfused. Good skin turgor. ASSESSMENT: 1. Acute GI bleed with bloody stools. Stool for occult blood positive 2. History of multiple colon polyps 3. History of liver cirrhosis requiring recurrent paracentesis 4. Hepatorenal syndrome 5. Thrombocytopenia 6. Hyponatremia 7. Elevated ammonia level 8. Hepatic encephalopathy PLAN: -Patient scheduled for EGD and colonoscopy for 06/03/2023 -Start clear liquid diet tomorrow -Start bowel prep with [place], lactulose and milk of magnesia on Saturday -Continue to monitor hemoglobin -Continue to monitor for any signs or symptoms of bleeding. Physician 1[address] Pressman note has been reviewed by physician. Signing provider agrees with the documented findings, assessment, and plan of care. Objective - Vital Signs Vital signs: Vital Signs Temp 98.0 F 05/31/23 11:18 Pulse 54 L 05/31/23 11:18 Resp 14 05/31/23 11:18 BP 106/64 05/31/23 11:18 Pulse Ox 99 05/31/23 12:32 FiO2 Intake & Output 05/30/23 05/31/23 05/31/23 18:59 06:59 18:59 Intake Total 480 118 240 Balance 480 118 240 Intake: Oral 480 118 240 Other: Voiding Method Bedpan Bedpan Bedpan Diaper Diaper Diaper # Voids 1 1 # Bowel Movements 2 1 - Labs CBC & Chem 7: 05/31/23 05:57 05/31/23 05:57 Labs: Abnormal Lab Results - Last 24 Hours (Table) 05/31/23 05/31/23 05/31/23 Range/Units 05:57 05:57 10:55 WBC 3.3 L (3.8-10.6) k/uL RBC 2.91 L (3.80-5.40) m/uL Hgb 8.1 L (11.4-16.0) gm/dL Hct 24.2 L (34.0-46.0) % RDW 15.6 H (11.5-15.5) % Plt Count 46 L (150-450) k/uL Sodium 127 L (137-145) mmol/L Carbon Dioxide 21 L (22-30) mmol/L BUN 66 H (7-17) mg/dL Creatinine 2.46 H (0.52-1.04) mg/dL Glucose 106 H (74-99) mg/dL Calcium 7.9 L (8.4-10.2) mg/dL Ammonia 128 H (<30) umol/L
--- NOTE | 2023-05-31 17:25 | P.PN ---
Progress Note - Text Progress Note Date: 05/31/23 Chief Complaint: Some confusion This is a 72-year-old patient, follows with Dr. Perez. Also follow-up with a public health administrator out of [facility]. Patient is brought to the ER with increasing lethargy and confusion. Distended abdomen. More lethargic. Patient said he had 3-5 bowel movements this morning. Lactulose was held this morning. Denies any pain. No fever no chills. Patient is rather slow to give any history. We've review of notes of Dr. Alexsander Izaguirre from last month shows she's been diagnosed with cirrhosis about 2 years ago. Gets regular paracentesis is [place]. Follows at [facility] with . Cause of cirrhosis is unclear. Denies any fever and chills. Denies any obvious urinary or respiratory symptoms. 05/31/2023: Yesterday 7.5 L of paracentesis was carried out." Given albumin. Abdomen less distended today. Patient documented to have 100% of lunch is morning. More awake. Spoke to patient's daughter at length. She did get in touch with the liver team at [facility]. Patient EGD and colo noscopy scheduled today was postponed until Saturday. Patient is BMs was witnessed by me. Nonbloody. Active Medications Ferrous Sulfate (Ferrous Sulfate 325 Mg Tab) 325 mg PO MOWEFR [facility] Last Admin: 05/31/23 09:08 Dose: 325 mg Furosemide (Furosemide 20 Mg Tab) 20 mg PO DAILY [facility] Last Admin: 05/31/23 09:08 Dose: 20 mg Lactulose (Lactulose 20 Gm/30 Ml Cup) 20 gm PO TID [facility] Last Admin: 05/31/23 16:21 Dose: 20 gm Metoprolol Tartrate (Metoprolol Tartrate 12.5 Mg Tab) 12.5 mg PO BID [facility] Last Admin: 05/31/23 09:08 Dose: 12.5 mg Midodrine (Midodrine 5 Mg Tab) 5 mg PO AC-TID [facility] Last Admin: 05/31/23 16:21 Dose: 5 mg Naloxone HCl (Naloxone 0.4 Mg/Ml 1 Ml Vial) 0.2 mg IV Q2M PRN PRN Reason: Opioid Reversal Ondansetron HCl (Ondansetron 4 Mg/2 Ml Vial) 4 mg IVP Q8HR PRN PRN Reason: Nausea And Vomiting Last Admin: 05/30/23 07:32 Dose: 4 mg Pantoprazole Sodium (Pantoprazole 40 Mg Tablet) 40 mg PO -BRKFST [facility] Last Admin: 05/31/23 09:08 Dose: 40 mg Polyethylene Glycol/Electrolytes (Peg 3350 (420 Gm/Btl) + Lytes 4,000 Ml Bottle) 2,000 ml PO ONCE ONE Stop: 06/02/23 08:01 Spironolactone (Spironolactone 25 Mg Tab) 50 mg PO BID [facility] Last Admin: 05/31/23 09:08 Dose: 50 mg Past medical history to include: GERD, hypertension, cirrhosis, and a medical cancer 2001, Social history: Lives with her daughter. Denied history of alcohol or smoking. Physical examination: VITAL SIGNS: 97.9, 55, 14, 120/64, 100% room air GENERAL: laying in bed awake tired. Bruising EYES: Pupils equal. Conjunctiva pale HEENT: External appearance of nose and ears normal, oral cavity grossly normal. NECK: JVD not raised; masses not palpable. HEART: First and second heart sounds are normal; no edema. LUNGS: Respiratory rate normal; clear to auscultation. ABDOMEN: Soft, not distended nontender, liver spleen not palpable, no masses palpable. PSYCH: Slightly lethargic able to answer simple questions. Slow to answer.l. MUSCULOSKELETAL:No Clubbing/cyanosis;muscles-grossly intact INVESTIGATIONS, reviewed in the clinical context: May 31: WBC 3.3 hemoglobin 8.1 platelets 46 sodium 127 potassium 3.9 BUN 66 creatinine 2.46 ammonia 128 May 30: White count 4.4 hemoglobin 9.2 platelets 70 Stool occult blood positive May 29: White count 5.6 hemoglobin 9.2 platelets 78 sodium 123 potassium 4.1 BUN 70 creatinine 2.56 Ammonia 115, 104 EKG tracing personally reviewed by me-normal sinus rhythm. Rate 55. Chest x-ray film personally reviewed by me-unremarkable Assessment and plan: -Acute hepatic encephalopathy.: Some improvement Titrate lactulose to get 3-5 BMs a day. -Possible GI bleed could be from variceal bleed. GI services not available in the hospital. Dr. Malagon scheduled the patient for EGD". Saturday. -Ascites secondary to cirrhosis. 10.5 L removed on May 31. Followed by albumin transfusion. -Portal hypertension Lopressor -Severe hypoalbuminemia from liver disease -Cirrhosis, cause unknown. Patient does follow-up at [facility]. -Chronic hypotension from underlying cirrhosis and hypoalbuminemia Midodrine -Hyponatremia, hypoosmolar secondary to cirrhosis -Hepatorenal syndrome. Follow renal function -DO NOT RESUSCITATE.
[2023-06-01] MEDS: MIDODRINE 5 MG TAB PO SCH ×3 (07:17→16:53)
[2023-06-01] MEDS: PANTOPRAZOLE 40 MG TABLET PO SCH (07:17)
[2023-06-01] MEDS: METOPROLOL TARTRATE 12.5 MG TAB PO SCH ×2 (08:49→21:18)
[2023-06-01] MEDS: SPIRONOLACTONE 25 MG TAB PO SCH ×2 (08:49→21:18)
[2023-06-01] MEDS: FUROSEMIDE 20 MG TAB PO SCH (08:49)
[2023-06-01] MEDS: LACTULOSE 20 GM/30 ML CUP PO SCH ×3 (08:50→21:18)
--- NOTE | 2023-06-01 09:38 | P.PN ---
Subjective Progress Note Date: 06/01/23 Principal diagnosis: GI bleeding Patient doing well today. No further bleeding today. Morning labs are pending. Denies abdominal pain. No nausea or vomiting. She is eating solid foods. Objective - Vital Signs Vital signs: Vital Signs Temp 98 F 06/01/23 08:00 Pulse 65 06/01/23 08:00 Resp 16 06/01/23 08:00 BP 119/64 06/01/23 08:00 Pulse Ox 99 06/01/23 08:00 FiO2 Intake & Output 05/31/23 06/01/23 06/01/23 18:59 06:59 18:59 Intake Total 240 0 Output Total 226 Balance 240 -226 Intake: Oral 240 0 Output: Urine 225 Stool 1 Other: Voiding Method Bedpan Bedpan Bedpan Diaper Diaper Diaper # Voids 1 # Bowel Movements 1 1 - Exam Abdomen: Soft, nontender, nondistended - Labs CBC & Chem 7: 05/31/23 05:57 05/31/23 05:57 Labs: Abnormal Lab Results - Last 24 Hours (Table) 05/31/23 Range/Units 10:55 Ammonia 128 H (<30) umol/L Assessment and Plan (1) GI bleed Narrative/Plan: 72-year-old female with GI bleed. Continue regular diet today. Begin clear liquids and bowel prep tomorrow for upper and lower endoscopy on Saturday. Current Visit: Yes Status: Acute Code(s): K92.2 - GASTROINTESTINAL HEMORRHAGE, UNSPECIFIED SNOMED Code(s): 82091935
[2023-06-01 10:12] LABS: African American GFR (CKD) 23 (>60 ml/min/1.73 sqM); Anion Gap 10 mmol/L; Blood Urea Nitrogen 65 mg/dL (7-17); Calcium 8.6 mg/dL (8.4-10.2); Carbon Dioxide 17 mmol/L (22-30); Chloride 104 mmol/L (98-107); Glucose 97 mg/dL (74-99); Non-African American GFR(CKD) 20 (>60 ml/min/1.73 sqM); Potassium 3.6 mmol/L (3.5-5.1); Sodium 131 mmol/L (137-145)
[2023-06-01 12:20] LABS: HCT 29.7 % (34.0-46.0); HGB 9.2 gm/dL (11.4-16.0); Hypochromasia Marked; MCH 27.7 pg (25.0-35.0); MCHC 30.9 g/dL (31.0-37.0); Mean Platelet Volume 8.1; RBC 3.32 m/uL (3.80-5.40); RDW 15.4 % (11.5-15.5); WBC 4.1 k/uL (3.8-10.6)
[2023-06-01 12:35] LABS: MCV 89.6 fL (80.0-100.0); Platelet Count 59 k/uL (150-450)
[2023-06-01] MEDS: SODIUM BICARBONATE TAB 650 MG TAB PO SCH ×3 (12:50→21:18)
--- NOTE | 2023-06-01 17:14 | P.PN ---
Progress Note - Text Progress Note Date: 06/01/23 Chief Complaint: Some confusion This is a 72-year-old patient, follows with Dr. Perez. Also follow-up with a sewer head out of [facility]. Patient is brought to the ER with increasing lethargy and confusion. Distended abdomen. More lethargic. Patient said he had 3-5 bowel movements this morning. Lactulose was held this morning. Denies any pain. No fever no chills. Patient is rather slow to give any history. We've review of notes of Dr. Alexsander Izaguirre from last month shows she's been diagnosed with cirrhosis about 2 years ago. Gets regular paracentesis is [place] [facility]. Follows at [facility] with . Cause of cirrhosis is unclear. Denies any fever and chills. Denies any obvious urinary or respiratory symptoms. 05/31/2023: Yesterday 7.5 L of paracentesis was carried out." Given albumin. Abdomen less distended today. Patient documented to have 100% of lunch is morning. More awake. Spoke to patient's daughter at length. She did get in touch with the liver team at [facility]. Patient EGD and colo noscopy scheduled today was postponed until Saturday. Patient is BMs was witnessed by me. Nonbloody. 06/01/2023: Clear liquid diet. Pending endoscopy and Saturday. Stable otherwise. Answering questions Active Medications Ferrous Sulfate (Ferrous Sulfate 325 Mg Tab) 325 mg PO MOWEFR [facility] Last Admin: 05/31/23 09:08 Dose: 325 mg Furosemide (Furosemide 20 Mg Tab) 20 mg PO DAILY [facility] Last Admin: 06/01/23 08:49 Dose: 20 mg Lactulose (Lactulose 20 Gm/30 Ml Cup) 20 gm PO TID [facility] Last Admin: 06/01/23 16:53 Dose: 20 gm Metoprolol Tartrate (Metoprolol Tartrate 12.5 Mg Tab) 12.5 mg PO BID [facility] Last Admin: 06/01/23 08:49 Dose: 12.5 mg Midodrine (Midodrine 5 Mg Tab) 5 mg PO AC-TID [facility] Last Admin: 06/01/23 16:53 Dose: 5 mg Naloxone HCl (Naloxone 0.4 Mg/Ml 1 Ml Vial) 0.2 mg IV Q2M PRN PRN Reason: Opioid Reversal Ondansetron HCl (Ondansetron 4 Mg/2 Ml Vial) 4 mg IVP Q8HR PRN PRN Reason: Nausea And Vomiting Last Admin: 05/30/23 07:32 Dose: 4 mg Pantoprazole Sodium (Pantoprazole 40 Mg Tablet) 40 mg PO AC-BRKFST [facility] Last Admin: 06/01/23 07:17 Dose: 40 mg Polyethylene Glycol/Electrolytes (Peg 3350 (420 Gm/Btl) + Lytes 4,000 Ml Bottle) 2,000 ml PO ONCE ONE Stop: 06/02/23 08:01 Sodium Bicarbonate (Sodium Bicarbonate Tab 650 Mg Tab) 650 mg PO TID [facility] Last Admin: 06/01/23 16:19 Dose: Not Given Spironolactone (Spironolactone 25 Mg Tab) 50 mg PO BID [facility] Last Admin: 06/01/23 08:49 Dose: 50 mg Past medical history to include: GERD, hypertension, cirrhosis, and a medical cancer 2001, Social history: Lives with her daughter. Denied history of alcohol or smoking. Physical examination: VITAL SIGNS: 98.7, 67, 16, 105/72, 100% room air GENERAL: laying in bed awake tired. Bruising EYES: Pupils equal. Conjunctiva pale HEENT: External appearance of nose and ears normal, oral cavity grossly normal. NECK: JVD not raised; masses not palpable. HEART: First and second heart sounds are normal; no edema. LUNGS: Respiratory rate normal; clear to auscultation. ABDOMEN: Soft, not distended nontender, liver spleen not palpable, no masses palpable. PSYCH: Slightly lethargic able to answer simple questions. Slow to answer.l. MUSCULOSKELETAL:No Clubbing/cyanosis;muscles-grossly intact INVESTIGATIONS, reviewed in the clinical context: June 01: WBC 4.1 hemoglobin 9.2 platelets 59 sodium 131 potassium 3.6 BUN 65 c reatinine 2.33 May 31: WBC 3.3 hemoglobin 8.1 platelets 46 sodium 127 potassium 3.9 BUN 66 creatinine 2.46 ammonia 128 May 30: White count 4.4 hemoglobin 9.2 platelets 70 Stool occult blood positive May 29: White count 5.6 hemoglobin 9.2 platelets 78 sodium 123 potassium 4.1 BUN 70 creatinine 2.56 Ammonia 115, 104 EKG tracing personally reviewed by me-normal sinus rhythm. Rate 55. Chest x-ray film personally reviewed by me-unremarkable Assessment and plan: -Acute hepatic encephalopathy.: Some improvement Titrate lactulose to get 3-5 BMs a day. -Possible GI bleed could be from variceal bleed. GI services not available in the hospital. Dr. Malagon scheduled the patient for EGD". Saturday. -Ascites secondary to cirrhosis. 10.5 L removed on May 31. Followed by albumin transfusion. -Portal hypertension Lopressor -Severe hypoalbuminemia from liver disease -Cirrhosis, cause unknown. Patient does follow-up at [facility]. -Chronic hypotension from underlying cirrhosis and hypoalbuminemia Midodrine -Hyponatremia, hypoosmolar secondary to cirrhosis -Hepatorenal syndrome. Follow renal function -DO NOT RESUSCITATE. Continue with current plan.
[2023-06-02] MEDS: MIDODRINE 5 MG TAB PO SCH ×3 (06:58→16:56)
[2023-06-02] MEDS: PANTOPRAZOLE 40 MG TABLET PO SCH (06:58)
[2023-06-02] MEDS ORDERED: PEG 3350 (420 GM/BTL) + LYTES 4,000 ML BOTTLE PO ONE (08:00)
[2023-06-02] MEDS: FUROSEMIDE 20 MG TAB PO SCH (09:29)
[2023-06-02] MEDS: SPIRONOLACTONE 25 MG TAB PO SCH ×2 (09:29→21:07)
[2023-06-02] MEDS: LACTULOSE 20 GM/30 ML CUP PO SCH ×3 (09:29→21:09)
[2023-06-02] MEDS: SODIUM BICARBONATE TAB 650 MG TAB PO SCH ×3 (09:29→21:06)
[2023-06-02] MEDS: METOPROLOL TARTRATE 12.5 MG TAB PO SCH ×2 (09:29→21:06)
--- NOTE | 2023-06-02 11:26 | P.PN ---
Subjective Progress Note Date: 06/02/23 Principal diagnosis: GI bleeding Patient doing well today. She is tired. No pain. No rectal bleeding. On clear liquids currently. Labs pending. Objective - Vital Signs Vital signs: Vital Signs Temp 97.8 F 06/02/23 08:00 Pulse 65 06/02/23 08:00 Resp 18 06/02/23 08:00 BP 133/73 06/02/23 08:00 Pulse Ox 100 06/02/23 08:00 FiO2 Intake & Output 06/01/23 06/02/23 06/02/23 18:59 06:59 18:59 Intake Total 90 Output Total 4 Balance 90 -4 Intake: Oral 90 Output: Stool 2 Urine/Stool Mix 2 Other: Voiding Method Bedpan Bedpan Diaper Diaper # Bowel Movements 3 1 - Exam Abdomen: Soft, nontender, nondistended - Labs CBC & Chem 7: 06/01/23 09:04 06/01/23 09:04 Labs: Abnormal Lab Results - Last 24 Hours (Table) 06/01/23 Range/Units 09:04 RBC 3.32 L (3.80-5.40) m/uL Hgb 9.2 L (11.4-16.0) gm/dL Hct 29.7 L (34.0-46.0) % MCHC 30.9 L (31.0-37.0) g/dL Plt Count 59 L (150-450) k/uL Assessment and Plan (1) GI bleed Narrative/Plan: Patient doing well today. Begin bowel prep for upper and lower endoscopy tomorrow. Current Visit: Yes Status: Acute Code(s): K92.2 - GASTROINTESTINAL HEMORRHAGE, UNSPECIFIED SNOMED Code(s): 25346648
[2023-06-02] MEDS ORDERED: LIDOCAINE 1% (10MG/ML) FOR IV START INTRADERMA PRN (13:51)
--- NOTE | 2023-06-02 14:03 | P.PN ---
Progress Note - Text Progress Note Date: 06/02/23 Chief Complaint: Some confusion This is a 72-year-old patient, follows with Dr. Perez. Also follow-up with a pigs feet cleaner out of [facility]. Patient is brought to the ER with increasing lethargy and confusion. Distended abdomen. More lethargic. Patient said he had 3-5 bowel movements this morning. Lactulose was held this morning. Denies any pain. No fever no chills. Patient is rather slow to give any history. We've review of notes of Dr. Alexsander Izaguirre from last month shows she's been diagnosed with cirrhosis about 2 years ago. Gets regular paracentesis is J [place]. Follows at [facility] with . Cause of cirrhosis is unclear. Denies any fever and chills. Denies any obvious urinary or respiratory symptoms. 05/31/2023: Yesterday 7.5 L of paracentesis was carried out." Given albumin. Abdomen less distended today. Patient documented to have 100% of lunch is morning. More awake. Spoke to patient's daughter at length. She did get in touch with the liver team at [facility]. Patient EGD and colo noscopy scheduled today was postponed until Saturday. Patient is BMs was witnessed by me. Nonbloody. 06/01/2023: Clear liquid diet. Pending endoscopy and Saturday. Stable otherwise. Answering questions 06/02/2023: Laying in bed. Awake. Pending EGD coloscopy tomorrow. On liquid diet. Active Medications Ferrous Sulfate (Ferrous Sulfate 325 Mg Tab) 325 mg PO MOWEFR [facility] Last Admin: 05/31/23 09:08 Dose: 325 mg Furosemide (Furosemide 20 Mg Tab) 20 mg PO DAILY [facility] Last Admin: 06/02/23 09:29 Dose: 20 mg Lactated Ringer's (Lactated Ringers) 1,000 mls @ 20 mls/hr IV .Q24H [facility] Lactulose (Lactulose 20 Gm/30 Ml Cup) 20 gm PO TID [facility] Last Admin: 06/02/23 09:29 Dose: 20 gm Lidocaine HCl (Lidocaine 1% (10mg/Ml) For Iv Start) 0.1 ml INTRADERMA PER PROTOCOL PRN PRN Reason: IV Start Metoprolol Tartrate (Metoprolol Tartrate 12.5 Mg Tab) 12.5 mg PO BID [facility] Last Admin: 06/02/23 09:29 Dose: 12.5 mg Midodrine (Midodrine 5 Mg Tab) 5 mg PO AC-TID [facility] Last Admin: 06/02/23 11:25 Dose: 5 mg Naloxone HCl (Naloxone 0.4 Mg/Ml 1 Ml Vial) 0.2 mg IV Q2M PRN PRN Reason: Opioid Reversal Ondansetron HCl (Ondansetron 4 Mg/2 Ml Vial) 4 mg IVP Q8HR PRN PRN Reason: Nausea And Vomiting Last Admin: 05/30/23 07:32 Dose: 4 mg Pantoprazole Sodium (Pantoprazole 40 Mg Tablet) 40 mg PO AC-BRKFST [facility] Last Admin: 06/02/23 06:58 Dose: 40 mg Sodium Bicarbonate (Sodium Bicarbonate Tab 650 Mg Tab) 650 mg PO TID [facility] Last Admin: 06/02/23 09:29 Dose: 650 mg Spironolactone (Spironolactone 25 Mg Tab) 50 mg PO BID [facility] Last Admin: 06/02/23 09:29 Dose: 50 mg Past medical history to include: GERD, hypertension, cirrhosis, and a medical cancer 2001, Social history: Lives with her daughter. Denied history of alcohol or smoking. Physical examination: VITAL SIGNS: 97.3, 60, 16, 10 9 x 69, 99% room air GENERAL: laying in bed awake tired. Bruising EYES: Pupils equal. Conjunctiva pale HEENT: External appearance of nose and ears normal, oral cavity grossly normal. NECK: JVD not raised; masses not palpable. HEART: First and second heart sounds are normal; no edema. LUNGS: Respiratory rate normal; clear to auscultation. ABDOMEN: Soft, not distended nontender, liver spleen not palpable, no masses palpable. PSYCH: Slightly lethargic able to answer simple questions. Slow to answer.l. MUSCULOSKELETAL:No Clubbing/cyanosis;muscles-grossly intact INVESTIGATIONS, reviewed in the clinical context: June 01: WBC 4.1 hemoglobin 9.2 platelets 59 sodium 131 potassium 3.6 BUN 65 creatinine 2.33 May 31: WBC 3.3 hemoglobin 8.1 platelets 46 sodium 127 potassium 3.9 BUN 66 creatinine 2.46 ammonia 128 May 30: White count 4.4 hemoglobin 9.2 platelets 70 Stool occult blood positive May 29: White count 5.6 hemoglobin 9.2 platelets 78 sodium 123 potassium 4.1 BUN 70 creatinine 2.56 Ammonia 115, 104 EKG tracing personally reviewed by me-normal sinus rhythm. Rate 55. Chest x-ray film personally reviewed by me-unremarkable Assessment and plan: -Acute hepatic encephalopathy.: Some improvement Titrate lactulose to get 3-5 BMs a day. -Possible GI bleed could be from variceal bleed. GI services not available in the hospital. Dr. Malagon scheduled the patient for EGD". Saturday. -Ascites secondary to cirrhosis. 10.5 L removed on May 31. Followed by albumin transfusion. -Portal hypertension Lopressor -Severe hypoalbuminemia from liver disease -Cirrhosis, cause unknown. Patient does follow-up at [facility]. -Chronic hypotension from underlying cirrhosis and hypoalbuminemia Midodrine -Hyponatremia, hypoosmolar secondary to cirrhosis -Hepatorenal syndrome. Follow renal function -DO NOT RESUSCITATE. Ending EGD coloscopy tomorrow. GI services will be available tomorrow-consult in a.m.
[2023-06-02] MEDS: LACTATED RINGERS 1,000 ML IV SCH (21:08)
[2023-06-03] MEDS: PANTOPRAZOLE 40 MG TABLET PO SCH (06:47)
[2023-06-03] MEDS: MIDODRINE 5 MG TAB PO SCH ×3 (06:47→16:37)
[2023-06-03 08:22] LABS: ALT 15 U/L (4-34); AST 18 U/L (14-36); African American GFR (CKD) 21 (>60 ml/min/1.73 sqM); Albumin 2.6 g/dL (3.5-5.0); Alkaline Phosphatase 68 U/L (38-126); Anion Gap 7 mmol/L; Bilirubin, Delta 0.2 mg/dL (0.0-0.2); Blood Urea Nitrogen 62 mg/dL (7-17); Calcium 8.3 mg/dL (8.4-10.2); Carbon Dioxide 23 mmol/L (22-30); Chloride 100 mmol/L (98-107); Glucose 84 mg/dL (74-99); Non-African American GFR(CKD) 18 (>60 ml/min/1.73 sqM); Potassium 3.4 mmol/L (3.5-5.1); Sodium 130 mmol/L (137-145); Total Bilirubin 1.2 mg/dL (0.2-1.3)
[2023-06-03] MEDS: LACTULOSE 20 GM/30 ML CUP PO SCH ×3 (09:51→20:53)
[2023-06-03] MEDS: SODIUM BICARBONATE TAB 650 MG TAB PO SCH ×3 (09:52→21:58)
[2023-06-03] MEDS ORDERED: IV FLUID CONTINUATION 900 ML IV ONE (10:53)
[2023-06-03] MEDS ORDERED: PROPOFOL 10 MG/ML 20 ML VIAL IV ONE (10:59)
[2023-06-03] MEDS ORDERED: LIDOCAINE 2% INJ 20 MG/ML (2 ML VIAL) ONE (10:59)
--- NOTE | 2023-06-03 11:16 | P.CONS ---
History of Present Illness - Reason for Consult Consult date: 06/03/23 Liver cirrhosis Requesting physician: Yeison E Sheet - Chief Complaint Confusion, vomiting - History of Present Illness This is a pleasant 72-year-old female who presented to the emergency department with confusion and complaints of vomiting. Patient has a history of liver cirrhosis and follows with [facility]. Patient does not recall underlying etiology of cirrhosis. She has a poor historian. Patient was admitted just a month ago with hepatic encephalopathy due to not taking her lactulose. At that time her daughter was also at the bedside who she lives with and states that her mom just will not take it and refuses to take it at times. Patient came in with pneumonia level of 128. Her repeat ammonia level from 06/01/2023 was 25. Patient also gets a regular paracentesis she states once a month done in [place]. Last paracentesis was here on 05/30/2023 was 7.5 L removed. Home medications include iron, Lasix 20 mg daily lactulose and Aldact one 50 mg twice a day. Also during her hospitalization she had coffee-ground emesis and bloody bowel movement. The patient states she only had the one. She is scheduled for EGD and colonoscopy today with Dr. Baeza. Patient currently denies any abdominal pain, nausea or vomiting. States she only had 1 bowel movement that was bloody. Patient is alert and in no acute distress. Labs Sodium 1:30 potassium 3.4 B1 62 creatinine 2.56, total bilirubin 1.2 AST 18 AOT 15 alkaline phosphatase 68 Review of Systems REVIEW OF SYSTEMS: CARDIOPULMONARY: No chest pain or shortness of breath. Gastrointestinal: No abdominal pain. No nausea or vomiting. No hematemesis, coffee-ground emesis. No rectal bleeding. Patient reports having one episode of bloody bowel movements during this hospitalization. GENITOURINARY: No dysuria or hematuria. MUSCULOSKELETAL: Reports normal range of motion. SKIN: No rashes. No jaundice. ENDOCRINE: No chills, fevers. No excessive weight gain or loss. No polydipsia or polyuria. PSYCHIATRIC: Unremarkable. NEUROLOGY: No change in mental status. Denies dizziness, headache. ENT: Vision unremarkable. CONSTITUTIONAL: No recent weight loss. No fever, chills, night sweats. Past Medical History Past Medical History: Cancer, GERD/Reflux, Hypertension, Liver Disease Additional Past Medical History / Comment(s): feet swelling, hx. endometrial cancer 2001, frequent diarrhea for months, hx. colon polyps, slight murmur per pt-no tx. for History of Any Multi-Drug Resistant Organisms: None Reported Past Surgical History: Cholecystectomy, Hysterectomy, Joint Replacement, Orthopedic Surgery Additional Past Surgical History / Comment(s): colonoscopies, maryellen. hip replaced, left wrist surg., left foot surg., arthroscopy left knee, right knee surg, large volume paracentesis Past Anesthesia/Blood Transfusion Reactions: No Reported Reaction Additional Past Anesthesia/Blood Transfusion Reaction / Comm: usually slow to wake up Past Psychological History: No Psychological Hx Reported Smoking Status: Never smoker Past Alcohol Use History: None Reported Past Drug Use History: None Reported - Past Family History Mother Family Medical History: No Reported History Father Family Medical History: Coronary Artery Disease (CAD) Medications and Allergies Home Medications Medication Instructions Recorded Confirmed Type Omeprazole [PriLOSEC] 20 mg PO DAILY 06/15/19 05/30/23 History Ferrous Sulfate [Iron (65 MG 325 mg PO MOWEFR 01/10/22 05/30/23 History Elemental)] Metoprolol Tartrate [Lopressor] 50 mg PO DAILY 01/10/22 05/30/23 History Lactulose 20 gm PO TID PRN 05/09/23 05/30/23 History Magnesium 200 mg PO DAILY 05/09/23 05/30/23 History Furosemide [Lasix] 20 mg PO DAILY #30 tab 05/16/23 05/30/23 Rx Loperamide [Imodium] 2 mg PO DAILY PRN #0 05/16/23 05/30/23 Rx Midodrine [ProAmatine] 5 mg PO AC-TID #90 tab 05/16/23 05/30/23 Rx Spironolactone [Aldactone] 50 mg PO BID 30 Days #120 tab 05/16/23 05/30/23 Rx Ondansetron Odt [Zofran Odt] 4 mg PO Q8H PRN 05/30/23 05/30/23 History Allergies Allergy/AdvReac Type Severity Reaction Status Date / Time hydromorphone [From Dilaudid] Allergy Severe Rash/Hives Verified 05/30/23 09:44 cephalexin [From Keflex] Allergy Rash/Hives Verified 05/30/23 09:44 guaifenesin [From Entex LA] Allergy Rash/Hives Verified 05/30/23 09:44 levofloxacin [From Levaquin] Allergy Rash/Hives Verified 05/30/23 09:44 phenylephrine [From Entex LA] Allergy Rash/Hives Verified 05/30/23 09:44 phenylpropanolamine Allergy Rash/Hives Verified 05/30/23 09:44 [From Entex LA] Physical Exam Vitals: Vital Signs Temp Pulse Resp BP Pulse Ox 06/03/23 08:00 98 06/03/23 04:00 98.0 F 68 16 122/68 100 06/03/23 02:00 60 16 06/03/23 00:00 98.0 F 60 16 132/62 98 06/02/23 20:00 97.8 F 63 16 128/66 96 06/02/23 15:34 98.3 F 16 133/74 100 06/02/23 12:00 97.3 F L 60 16 119/69 99 Intake and Output 06/02/23 06/03/23 06/03/23 22:59 06:59 14:59 Intake Total 1000 Output Total 1 1 Balance -1 999 Intake: Oral 1000 Output: Stool 1 1 Other: Voiding Method Bedpan Bedpan Diaper Diaper # Voids 1 3 # Bowel Movements 1 3 General appearance: The patient is alert, oriented, appears in no acute distress. HET: Head is normocephalic and atraumatic. Conjunctiva pink. Sclera anicteric. Neck: Supple without lymphadenopathy. Trachea midline. Heart: S1 S2. Regular rate and rhythm. Lungs: Clear to auscultation. Abdomen: Soft, nontender, nondistended with bowel sounds. No guarding or rigidity. Skin: No rashes. No jaundice. Extremities: Normal skin color and turgor. No pedal edema. Neurological: No focal deficits. Alert and oriented x3. Results CBC & Chem 7: 06/01/23 09:04 06/03/23 07:24 Labs: Abnormal Lab Results - Last 24 Hours (Table) 06/03/23 Range/Units 07:24 Sodium 130 L (137-145) mmol/L Potassium 3.4 L (3.5-5.1) mmol/L BUN 62 H (7-17) mg/dL Creatinine 2.56 H (0.52-1.04) mg/dL Calcium 8.3 L (8.4-10.2) mg/dL Total Protein 5.0 L (6.3-8.2) g/dL Albumin 2.6 L (3.5-5.0) g/dL Assessment and Plan (1) Hepatic encephalopathy Narrative/Plan: Narrative/Plan: This is a 72-year-old female with a past medical history of cirrhosis of the liver, unknown cause. She follows with a specialist out a [facility]. She had a liver biopsy done 02/08/2022 with specimen reporting consistent with cirrhosis. She is supposed to be taking lactulose 3 times a day however she states she does not like and does not take it at home. Elevated ammonia secondary to underlying cirrhosis of the liver and secondary to medication noncompliance. Discussed with patient importance of taking lactulose, will be scheduled as ordered per home meds 20 g 3 times a day. Current Visit: Yes Status: Acute Code(s): K76.82 - HEPATIC ENCEPHALOPATHY SNOMED Code(s): 44040699 (2) Chronic kidney disease Current Visit: Yes Status: Acute Code(s): N18.9 - CHRONIC KIDNEY DISEASE, UNSPECIFIED SNOMED Code(s): 217487930 (3) Cirrhosis of liver Current Visit: No Status: Acute Code(s): K74.60 - UNSPECIFIED CIRRHOSIS OF LIVER SNOMED Code(s): 24736770 (4) Ascites Current Visit: Yes Status: Acute Code(s): R18.8 - OTHER ASCITES SNOMED Code(s): 411045367 Plan: 1. Continue supportive care 2. Continue lactulose 20 g by mouth 3 times a day, this needs to be scheduled a nd taken daily to have 3-4 bowel movements a day 3. Patient scheduled for EGD and colonoscopy today with general surgery 4. Patient is status post paracentesis 5. Discussed importance with patient on medication compliance with her lactulose, patient was recently hospitalized for hepatic encephalopathy due to not taking her medications and continues not to take her medication as directed. 6. Will add xifaxin [address] Alexsander Izaguirre I agree with the dictator's note, documented as a scribe by Tiara Rincon.
--- NOTE | 2023-06-03 11:27 | P.PN ---
Subjective This is a 72-year-old patient, follows with Dr. Perez. Also follow-up with a electrical systems drafter out of [facility]. Patient is brought to the ER with increasing lethargy and confusion. Distended abdomen. More lethargic. Patient said he had 3-5 bowel movements this morning. Lactulose was held this morning. Denies any pain. No fever no chills. Patient is rather slow to give any history. We've review of notes of Dr. Alexsander Izaguirre from last month shows she's been diagnosed with cirrhosis about 2 years ago. Gets regular paracentesis is [place]. Follows at [facility] with . Cause of cirrhosis is unclear. Denies any fever and chills. Denies any obvious urinary or respiratory symptoms. 05/31/2023: Yesterday 7.5 L of paracentesis was carried out." Given albumin. Abdomen less distended today. Patient documented to have 100% of lunch is morning. More awake. Spoke to patient's daughter at length. She did get in touch with the liver team at [facility]. Patient EGD and colonoscopy scheduled today was postponed until Saturday. Patient is BMs was witnessed by me. Nonbloody. 06/01/2023: Clear liquid diet. Pending endoscopy and Saturday. Stable otherwise. Answering questions 06/02/2023: Laying in bed. Awake. Pending EGD coloscopy tomorrow. On liquid diet. 06/03/2023 This is a pleasant 72 years old female with past medical history of cirrhosis of unknown cause presents with confusion and nausea on 05/30 found to have decompensated liver cirrhosis with ascites and she underwent thoracentesis during this admission. Ammonia level was elevated 128 secondary to hepatic encephalopathy she received lactulose and ammonia and mentation improved ammonia is down to 25. She continu ed on lactulose and there was concerns about compliance, she is seen by GI service today and recommended continue current management. She is alert awake oriented to 3 [facility] and she The month and year and name of the president. She has insight into her illness and follows commands. She wants to go home soon. Surgery team about a plan for EGD/colonoscopy for anemia and some blood in stool, hemoglobin is stable and 9.2. She is denying abdominal pain or diarrhea. This is on Protonix Creatinine elevated at 2.5 slightly worsening since last month, evaluated by heat and frost insulator helper during recent last admission and they doubt hepatorenal syndrome. Objective - Vital Signs Vital signs: Vital Signs Temp 97.3 F L 06/03/23 09:06 Pulse 58 L 06/03/23 10:30 Resp 16 06/03/23 10:30 BP 125/58 06/03/23 09:06 Pulse Ox 100 06/03/23 09:06 FiO2 Intake & Output 06/02/23 06/03/23 06/03/23 18:59 06:59 18:59 Intake Total 1000 200 Output Total 1 2 1 Balance -1 998 199 Intake: IV 200 Oral 1000 Output: Stool 1 2 1 Other: Voiding Method Bedpan Bedpan Bedpan Diaper Diaper Diaper # Voids 3 # Bowel Movements 4 3 - Exam -GENERAL: The patient is alert and oriented x3, lethargic not in any acute distress. Well developed, well nourished. HEENT: Pupils are round and equally reacting to light. EOMI. No scleral icterus. No conjunctival pallor. Normocephalic, atraumatic. No pharyngeal erythema. No thyromegaly. CARDIOVASCULAR: S1 and S2 present. No murmurs, rubs, or gallops. PULMONARY: Chest is clear to auscultation, no wheezing , no crackles. ABDOMEN: Soft, nontender, nondistended, normoactive bowel sounds. No palpable organomegaly. MUSCULOSKELETAL: No joint swelling or deformity. EXTREMITIES: No cyanosis, clubbing, or pedal edema. NEUROLOGICAL: Gross neurological examination did not reveal any focal deficits. SKIN: No rashes. no petechiae. - Labs CBC & Chem 7: 06/01/23 09:04 06/03/23 07:24 Labs: Abnormal Lab Results - Last 24 Hours (Table) 06/03/23 Range/Units 07:24 Sodium 130 L (137-145) mmol/L Potassium 3.4 L (3.5-5.1) mmol/L BUN 62 H (7-17) mg/dL Creatinine 2.56 H (0.52-1.04) mg/dL Calcium 8.3 L (8.4-10.2) mg/dL Total Protein 5.0 L (6.3-8.2) g/dL Albumin 2.6 L (3.5-5.0) g/dL Assessment and Plan Assessment: Hepatic encephalopathy, improved Decompensated liver cirrhosis of unknown causes, improved noncompliance to treatment Acute kidney disease on chronic kidney disease Bloody stool with anemia, rule out GI bleed Mild hyponatremia improvement Plan: Follow-up EGD/colonoscopy GI team evaluated the patient Continue with Protonix No anticoagulation Continue with lactulose to titrate bowel movement 3-4 per day Labs and medication were reviewed.. Continue same treatment. Continue with symptomatic treatment. Resume home medication. Monitor labs and vitals. DVT and GI prophylaxis. Further recommendations as per clinical course of the patient DVT prophylaxis: no Subcutaneous heparin GI Prophylaxis: Ppi PT/OT: Subacute rehab versus home care Prognosis is guarded
--- NOTE | 2023-06-03 11:34 | P.PCN ---
Date of Procedure: 06/03/23 Description of Procedure: PREOPERATIVE DIAGNOSIS: GI bleed Anemia Hepatorenal syndrome POSTOPERATIVE DIAGNOSIS: Colitis Transverse colon adenoma Proctitis with bleeding OPERATION: Colonoscopy to the ileocecal valve and appendiceal orifice, cecum Colonoscopy with hot snare polypectomy SURGEON: Paulina Baeza MD. ANESTHESIA: MAC. INDICATIONS: The patient is an 72-year-old female who presents with anemia and GI bleeding Benefits and risks were described and informed consent was obtained. DESCRIPTION OF PROCEDURE: The patient had undergone Golytely prep. The patient had been brought into the operating room and laid in the left lateral decubitus position. After adequate intravenous sedation, the rectum was examined with 2% lidocaine jelly. No external hemorrhoids were encountered. Moderate erythema with bleeding of the rectum was identified. The rectal tone was within normal limits. No lesions were palpated in the rectal vault. An Olympus colonoscope was advanced until the cecum, ileocecal valve and appendiceal orifice were clearly viewed. The prep was fair. No sigmoid diverticulosis was encountered. Colonic polyps were found and removed. No evidence of focal colitis was found. Retroflexion of the scope demonstrated grade 2 internal hemorrhoids without active bleeding or inflammation. The colon was desufflated. The patient had tolerated the procedure well. Withdrawal time was over 6 minutes. FINDINGS: Aronchick preparation quality scale 2+ (1-5) Internal hemorrhoids, grade 3 with recent inflammation and bleeding External hemorrhoids, grade 4. No arteriovenous malformations. No sigmoid diverticulosis Removal of 1 polyp: - Snare polypectomy transverse colon, 10 mm tubulovillous adenoma Proctitis with bleeding Sigmoid colitis RECOMMENDATIONS: Recommend treatment for colitis and part-time Plan - Discharge Summary Discharge Rx Participant: Yes New Discharge Prescriptions: No Action Omeprazole [PriLOSEC] 20 mg PO DAILY Lactulose 20 gm PO TID PRN PRN Reason: Constipation Furosemide [Lasix] 20 mg PO DAILY #30 tab Midodrine [ProAmatine] 5 mg PO AC-TID #90 tab Ondansetron Odt [Zofran Odt] 4 mg PO Q8H PRN PRN Reason: Nausea And Vomiting Ferrous Sulfate [Iron (65 MG Elemental)] 325 mg PO MOWEFR Metoprolol Tartrate [Lopressor] 50 mg PO DAILY Magnesium 200 mg PO DAILY Spironolactone [Aldactone] 50 mg PO BID 30 Days #120 tab Loperamide [Imodium] 2 mg PO DAILY PRN #0 PRN Reason: Diarrhea Discharge Medication List Omeprazole [PriLOSEC] 20 mg PO DAILY 06/15/19 [History] Ferrous Sulfate [Iron (65 MG Elemental)] 325 mg PO MOWEFR 01/10/22 [History] Metoprolol Tartrate [Lopressor] 50 mg PO DAILY 01/10/22 [History] Lactulose 20 gm PO TID PRN 05/09/23 [History] Magnesium 200 mg PO DAILY 05/09/23 [History] Furosemide [Lasix] 20 mg PO DAILY #30 tab 05/16/23 [Rx] Loperamide [Imodium] 2 mg PO DAILY PRN #0 05/16/23 [Rx] Midodrine [ProAmatine] 5 mg PO AC-TID #90 tab 05/16/23 [Rx] Spironolactone [Aldactone] 50 mg PO BID 30 Days #120 tab 05/16/23 [Rx] Ondansetron Odt [Zofran Odt] 4 mg PO Q8H PRN 05/30/23 [History] Follow up Appointment(s)/Referral(s): Danielito Perez MD [Primary Care Provider] - 1-2 days
--- NOTE | 2023-06-03 11:36 | P.PCN ---
Date of Procedure: 06/03/23 Description of Procedure: PREOPERATIVE DIAGNOSIS: Acute gastrointestinal bleeding Anemia POSTOPERATIVE DIAGNOSIS: Gastritis without bleeding Diaphragmatic hiatal hernia OPERATION: Esophagogastroduodenoscopy SURGEON: Paulina Baeza MD ANESTHESIA: MAC. INDICATIONS: The patient is a 72-year-old female who presents with gastrointestinal bleeding and anemia. Benefits and risks of the procedure were described. Informed consent was obtained. DESCRIPTION: The patient was brought into the endoscopy suite and laid in the left lateral decubitus position. An Olympus gastroscope was passed along the posterior oropharynx down to the distal esophagus where the squamocolumnar junction was encountered at 33 cm from the incisors. The stomach was entered and no bile reflux was found. Additional findings are listed below. The first through third portion of the duodenum was examined and unremarkable. Retroflexion of the scope confirmed Hill grade 3 lower esophageal valve. The squamocolumnar junction demonstrated LA grade A erosive esophagitis. The stomach was desufflated. The patient tolerated the procedure well. FINDINGS: Squamocolumnar junction 33 cm from the incisors. Diaphragmatic hiatus at 33 cm. Hill grade 3 lower esophageal valve. LA grade A erosive esophagitis. Moderate gastritis No active duodenitis. No stigmata of bleeding RECOMMENDATIONS: 1. Diet as tolerated 2. Upper endoscopy as needed
[2023-06-03] MEDS: METOPROLOL TARTRATE 12.5 MG TAB PO SCH ×2 (12:23→21:58)
[2023-06-03] MEDS: FERROUS SULFATE 325 MG TAB PO SCH (12:23)
[2023-06-03] MEDS: SPIRONOLACTONE 25 MG TAB PO SCH ×2 (12:23→21:58)
[2023-06-03] MEDS: FUROSEMIDE 20 MG TAB PO SCH (12:23)
[2023-06-03] MEDS ORDERED: POTASSIUM CHLORIDE ER 20 MEQ TAB.ER PO STA (14:00)
--- NOTE | 2023-06-03 14:00 | P.NPCON ---
History of Present Illness - Reason for Consult acute renal failure - History of Present Illness Patient is a 72-year-old female with history of liver cirrhosis being followed at [facility]. Etiology of liver cirrhosis not known at this time. Patient was admitted to the hospital with complaints of increased weakness and mental status changes. Ammonia level was elevated and it is now improved to 25. Patient has been voiding on her own Serum creatinine noted to be at 2.5 on initial admission and decreased to 2.3 and it is back to 2.5 today. Previous creatinine ranging between 1.5 and 1.8 mg/dL in April of this year. Patient was seen for acute kidney injury during her last hospitalization in April. This was mostly associated with hypotension and large-volume paracentesis. Blood pressure has not been significantly low currently but was noted to be low in the 90s on 05/30 and 05/31/2023 No nephrotoxic meds noted Maintained on small dose of Lasix. Review of Systems As per HPI. Past Medical History Past Medical History: Cancer, GERD/Reflux, Hypertension, Liver Disease Additional Past Medical History / Comment(s): feet swelling, hx. endometrial cancer 2001, frequent diarrhea for months, hx. colon polyps, slight murmur per pt-no tx. for History of Any Multi-Drug Resistant Organisms: None Reported Past Surgical History: Cholecystectomy, Hysterectomy, Joint Replacement, Orthopedic Surgery Additional Past Surgical History / Comment(s): colonoscopies, maryellen. hip replaced, left wrist surg., left foot surg., arthroscopy left knee, right knee surg, large volume paracentesis Past Anesthesia/Blood Transfusion Reactions: No Reported Reaction Additional Past Anesthesia/Blood Transfusion Reaction / Comment(s): usually slow to wake up Past Psychological History: No Psychological Hx Reported Smoking Status: Never smoker Past Alcohol Use History: None Reported Past Drug Use History: None Reported - Past Family History Mother Family Medical History: No Reported History Father Family Medical History: Coronary Artery Disease (CAD) Medications and Allergies Home Medications Medication Instructions Recorded Confirmed Type Omeprazole [PriLOSEC] 20 mg PO DAILY 06/15/19 05/30/23 History Ferrous Sulfate [Iron (65 MG 325 mg PO MOWEFR 01/10/22 05/30/23 History Elemental)] Metoprolol Tartrate [Lopressor] 50 mg PO DAILY 01/10/22 05/30/23 History Lactulose 20 gm PO TID PRN 05/09/23 05/30/23 History Magnesium 200 mg PO DAILY 05/09/23 05/30/23 History Furosemide [Lasix] 20 mg PO DAILY #30 tab 05/16/23 05/30/23 Rx Loperamide [Imodium] 2 mg PO DAILY PRN #0 05/16/23 05/30/23 Rx Midodrine [ProAmatine] 5 mg PO AC-TID #90 tab 05/16/23 05/30/23 Rx Spironolactone [Aldactone] 50 mg PO BID 30 Days #120 tab 05/16/23 05/30/23 Rx Ondansetron Odt [Zofran Odt] 4 mg PO Q8H PRN 05/30/23 05/30/23 History Allergies Allergy/AdvReac Type Severity Reaction Status Date / Time hydromorphone [From Dilaudid] Allergy Severe Rash/Hives Verified 05/30/23 09:44 cephalexin [From Keflex] Allergy Rash/Hives Verified 05/30/23 09:44 guaifenesin [From Entex LA] Allergy Rash/Hives Verified 05/30/23 09:44 levofloxacin [From Levaquin] Allergy Rash/Hives Verified 05/30/23 09:44 phenylephrine [From Entex LA] Allergy Rash/Hives Verified 05/30/23 09:44 phenylpropanolamine Allergy Rash/Hives Verified 05/30/23 09:44 [From Entex LA] Physical Exam Vitals: Vital Signs Temp Pulse Resp BP Pulse Ox 06/03/23 12:22 62 18 117/72 93 L 06/03/23 10:30 58 L 16 06/03/23 09:06 97.3 F L 58 L 16 125/58 100 06/03/23 08:00 98 06/03/23 04:00 98.0 F 68 16 122/68 100 06/03/23 02:00 60 16 06/03/23 00:00 98.0 F 60 16 132/62 98 06/02/23 20:00 97.8 F 63 16 128/66 96 06/02/23 15:34 98.3 F 16 133/74 100 Intake and Output 06/02/23 06/03/23 06/03/23 22:59 06:59 14:59 Intake Total 1000 200 Output Total 1 1 1 Balance -1 999 199 Intake: IV 200 Oral 1000 Output: Stool 1 1 1 Other: Voiding Method Bedpan Bedpan Bedpan Diaper Diaper Diaper # Voids 1 3 2 # Bowel Movements 1 3 1 Patient is awake, comfortable, no acute distress Examination of the heart S1 and S2 Examination of the lungs bilateral breath sounds are heard Abdomen is soft nontender Examination lower extremity shows no significant edema FRAME NAILER exam grossly intact. Results - Lab Results Most recent lab results Calcium 8.3 mg/dL (8.4-10.2) L 06/03/23 07:24 Magnesium 2.2 mg/dL (1.6-2.3) 05/29/23 23:00 06/01/23 09:04 06/03/23 07:24 Assessment and Plan Assessment: 1. Acute kidney injury most associated with hypotension. Blood pressure has now improved. Urine output is not accurately charted. UA is unremarkable. 2. Mental status changes secondary to hepatic encephalopathy currently improved 3. Liver cirrhosis, etiology not known. Being followed at [facility] 4. Thrombocytopenia associated with chronic liver disease 5. Anemia rule out iron deficiency 6. Hypokalemia secondary to diarrhea with lactulose and decrease oral intake 7. Hyponatremia secondary to liver cirrhosis Plan: Check accurate I's and O's Replace potassium Hold Lasix Repeat labs in a.m. Continue with midodrine Continue with sodium bicarb as well next Thank you for the consultation. We will continue to follow the patient with you during her hospitalization.
[2023-06-03] MEDS: LACTATED RINGERS 1,000 ML IV SCH (16:47)
--- NOTE | 2023-06-03 17:19 | P.PN ---
Subjective Progress Note Date: 06/03/23 CHIEF COMPLAINT: GI bleed HISTORY OF PRESENT ILLNESS: The patient is a 72-year-old female with anemia and GI bleed with hepatorenal syndrome. No further bleeding identified since prep and scope. ROS: No reports of nausea and vomiting. No fevers or chills. No new chest pain. No productive sputum PHYSICAL EXAM: VITAL SIGNS: Reviewed CONSTITUTIONAL: Well developed and in no acute distress. EYES: Conjuctivae without sclera icterus. Extraocular movements grossly intact. HEAD, EARS, NOSE, THROAT: Moist buccal mucosa. Head is atraumatic, normocephalic. Hears conversational speech. No nasal drainage. RESPIRATORY: Non-labored respirations and equal bilateral excursions. CARDIOVASCULAR: Palpable 2+ radial pulses. ABDOMEN: Nontender. MUSCULOSKELETAL: No gross deformity of the lower extremities noted. No clubbing. No cyanosis. SKIN: Good skin turgor. Well perfused. NEUROLOGIC: Cranial nerves II through XII grossly intact. No focal or lateralizing signs. PSYCH: Appropriate affect. Alert and oriented to person, place and time. CLINICAL LABS: Reviewed. Hemoglobin at 8.2-9.1 from 06/01/2023 ASSESSMENT: 1. Anemia 2. GI bleed 3. Hepatic renal syndrome 4. Proctitis with colitis PLAN: 1. Recommend repeat CBC and hemoglobin 2. For proctitis/colitis start Flagyl 500 mg 4 times a day Objective - Vital Signs Vital signs: Vital Signs Temp 97.3 F L 06/03/23 09:06 Pulse 61 06/03/23 16:32 Resp 18 06/03/23 16:32 BP 125/74 06/03/23 16:32 Pulse Ox 95 06/03/23 16:32 FiO2 Intake & Output 06/02/23 06/03/23 06/03/23 18:59 06:59 18:59 Intake Total 1000 350 Output Total 1 2 201 Balance -1 998 149 Intake: IV 200 Oral 1000 150 Output: Urine 200 Stool 1 2 1 Other: Voiding Method Bedpan Bedpan Diaper Diaper Diaper External Catheter # Voids 3 2 # Bowel Movements 4 3 1 - Labs CBC & Chem 7: 06/01/23 09:04 06/03/23 07:24 Labs: Abnormal Lab Results - Last 24 Hours (Table) 06/03/23 Range/Units 07:24 Sodium 130 L (137-145) mmol/L Potassium 3.4 L (3.5-5.1) mmol/L BUN 62 H (7-17) mg/dL Creatinine 2.56 H (0.52-1.04) mg/dL Calcium 8.3 L (8.4-10.2) mg/dL Total Protein 5.0 L (6.3-8.2) g/dL Albumin 2.6 L (3.5-5.0) g/dL
[2023-06-03] MEDS: metroNIDAZOLE-NS PMX 500 MG in SALINE 1 100ML.BAG IVPB SCH (18:10)
[2023-06-03] MEDS: RIFAXIMIN 550 MG TABLET PO SCH (21:58)
[2023-06-04] MEDS: metroNIDAZOLE-NS PMX 500 MG in SALINE 1 100ML.BAG IVPB SCH ×3 (01:48→17:51)
[2023-06-04] MEDS: PANTOPRAZOLE 40 MG TABLET PO SCH (06:37)
[2023-06-04] MEDS: MIDODRINE 5 MG TAB PO SCH ×3 (06:37→17:51)
[2023-06-04] MEDS: LACTULOSE 20 GM/30 ML CUP PO SCH ×3 (09:33→21:17)
[2023-06-04] MEDS: SPIRONOLACTONE 25 MG TAB PO SCH ×2 (09:38→21:16)
[2023-06-04] MEDS: FUROSEMIDE 20 MG TAB PO SCH (09:38)
[2023-06-04] MEDS: SODIUM BICARBONATE TAB 650 MG TAB PO SCH ×3 (09:38→21:17)
[2023-06-04] MEDS: RIFAXIMIN 550 MG TABLET PO SCH ×2 (09:38→21:17)
[2023-06-04] MEDS: METOPROLOL TARTRATE 12.5 MG TAB PO SCH ×2 (09:38→21:16)
--- NOTE | 2023-06-04 12:19 | P.PN ---
Subjective Patient is seen for follow-up for acute kidney injury. She has underlying liver cirrhosis and was admitted with mental status changes from hepatic encephalopathy. Mentation has improved. Serum creatinine had increased to about 2.5 mg/dL from previous reading of about 1.4-1.5 about 3 weeks ago. Blood pressure had been significantly low with systolic at 92-93 mmHg. Now improved. Maintained on midodrine. Patient is voiding on her own. Labs are pending from today. Objective - Vital Signs Vital signs: Vital Signs Temp 98.1 F 06/04/23 08:00 Pulse 72 06/04/23 08:00 Resp 18 06/04/23 08:00 BP 114/73 06/04/23 08:00 Pulse Ox 95 06/04/23 10:48 FiO2 Intake & Output 06/03/23 06/04/23 06/04/23 18:59 06:59 18:59 Intake Total 530 440 270 Output Total 201 2 101 Balance 329 438 169 Intake: IV 200 Oral 330 440 270 Output: Urine 200 100 Stool 1 2 1 Other: Voiding Method Diaper Diaper Diaper External Catheter External Catheter External Catheter # Voids 2 2 # Bowel Movements 1 - Exam Patient is awake, comfortable, no acute distress Examination of the heart S1 and S2 Examination of the lungs bilateral breath sounds are heard Abdomen is soft nontender Examination lower extremity shows no significant edema DEBEADER exam grossly intact. - Labs CBC & Chem 7: 06/01/23 09:04 06/03/23 07:24 Assessment and Plan Assessment: 1. Acute kidney injury most associated with hypotension. Blood pressure has now improved. Urine output is not accurately charted. UA is unremarkable. Ultrasound on 05/13/2023 showed no evidence of obstruction. 2. Mental status changes secondary to hepatic encephalopathy currently improved 3. Liver cirrhosis, etiology not known. Being followed at [facility] 4. Thrombocytopenia associated with chronic liver disease 5. Anemia rule out iron deficiency 6. Hypokalemia secondary to diarrhea with lactulose and decrease oral intake 7. Hyponatremia secondary to liver cirrhosis Plan: Check accurate I's and O's Hold Lasix if creatinine is higher today. Repeat labs in a.m. Continue with midodrine Continue with sodium bicarb as well Check labs today and in a.m.
--- NOTE | 2023-06-04 12:30 | P.PN ---
Subjective This is a 72-year-old patient, follows with Dr. Perez. Also follow-up with a change of address clerk out of [facility]. Patient is brought to the ER with increasing lethargy and confusion. Distended abdomen. More lethargic. Patient said he had 3-5 bowel movements this morning. Lactulose was held this morning. Denies any pain. No fever no chills. Patient is rather slow to give any history. We've review of notes of Dr. Alexsander Izaguirre from last month shows she's been diagnosed with cirrhosis about 2 years ago. Gets regular paracentesis is [place]. Follows at [facility] with . Cause of cirrhosis is unclear. Denies any fever and chills. Denies any obvious urinary or respiratory symptoms. 05/31/2023: Yesterday 7.5 L of paracentesis was carried out." Given albumin. Abdomen less distended today. Patient documented to have 100% of lunch is morning. More awake. Spoke to patient's daughter at length. She did get in touch with the liver team at [facility]. Patient EGD and colonoscopy scheduled today was postponed until Saturday. Patient is BMs was witnessed by me. Nonbloody. 06/01/2023: Clear liquid diet. Pending endoscopy and Saturday. Stable otherwise. Answering questions 06/02/2023: Laying in bed. Awake. Pending EGD coloscopy tomorrow. On liquid diet. 06/03/2023 This is a pleasant 72 years old female with past medical history of cirrhosis of unknown cause presents with confusion and nausea on 05/30 found to have decompensated liver cirrhosis with ascites and she underwent thoracentesis during this admission. Ammonia level was elevated 128 secondary to hepatic encephalopathy she received lactulose and ammonia and mentation improved ammonia is down to 25. She continu ed on lactulose and there was concerns about compliance, she is seen by GI service today and recommended continue current management. She is alert awake oriented to [facility] and she The month and year and name of the president. She has insight into her illness and follows commands. She wants to go home soon. Surgery team about a plan for EGD/colonoscopy for anemia and some blood in stool, hemoglobin is stable and 9.2. She is denying abdominal pain or diarrhea. This is on Protonix Creatinine elevated at 2.5 slightly worsening since last month, evaluated by roustabout crew during recent last admission and they doubt hepatorenal syndrome. 06/04/2023 patient's mentation is improved and she is awake and alert and oriented to time place and person as she knows she is in [facility], she knows the date at the name of the president. She follows commands and has insight. She is status post EGD yesterday: Erosive esophagitis with moderate gastritis She status post colonoscopy: Showing sigmoid colitis and proctitis with bleeding and she is status post one polyp removal from the transverse colon Patient was started on Flagyl for prostatitis/sigmoid colitis Nephrology team following the patient for acute kidney injury and creatinine 2.5. Repeat creatinine today and tomorrow is pending. Blood pressure informed with midodrine Rifaximin is admitted by GI service however upon patient mentation is at baseline. Patient improving slowly and gradually and she would be discharged to F was cleared by all consultants including surgery team and nephrology Objective - Vital Signs Vital signs: Vital Signs Temp 98.1 F 06/04/23 08:00 Pulse 62 06/04/23 12:00 Resp 18 06/04/23 12:00 BP 109/66 06/04/23 12:00 Pulse Ox 99 06/04/23 12:00 FiO2 Intake & Output 06/03/23 06/04/23 06/04/23 18:59 06:59 18:59 Intake Total 530 440 270 Output Total 201 2 101 Balance 329 438 169 Intake: IV 200 Oral 330 440 270 Output: Urine 200 100 Stool 1 2 1 Other: Voiding Method Diaper Diaper Diaper External Catheter External Catheter External Catheter # Voids 2 2 # Bowel Movements 1 - Exam -GENERAL: The patient is alert and oriented x3, lethargic not in any acute distress. Well developed, well nourished. HEENT: Pupils are round and equally reacting to light. EOMI. No scleral icterus. No conjunctival pallor. Normocephalic, atraumatic. No pharyngeal erythema. No thyromegaly. CARDIOVASCULAR: S1 and S2 present. No murmurs, rubs, or gallops. PULMONARY: Chest is clear to auscultation, no wheezing , no crackles. ABDOMEN: Soft, nontender, nondistended, normoactive bowel sounds. No palpable organomegaly. MUSCULOSKELETAL: No joint swelling or deformity. EXTREMITIES: No cyanosis, clubbing, or pedal edema. NEUROLOGICAL: Gross neurological examination did not reveal any focal deficits. SKIN: No rashes. no petechiae. - Labs CBC & Chem 7: 06/01/23 09:04 06/03/23 07:24 Assessment and Plan Assessment: Proctitis and sigmoid Colitis Hepatic encephalopathy, improved Decompensated liver cirrhosis of unknown causes, improved noncompliance to treatment Acute kidney disease on chronic kidney disease Bloody stool with anemia, secondary to prostatitis Erosive esophagitis and moderate gastritis Mild hyponatremia improvement Plan: Continue with Flagyl as per and follow-up with surgery team recommendation Monitor creatinine and blood pressure GI team evaluated the patient Continue with Protonix No anticoagulation Continue with lactulose to titrate bowel movement 3-4 per day Labs and medication were reviewed.. Continue same treatment. Continue with symptomatic treatment. Resume home medication. Monitor labs and vitals. DVT and GI prophylaxis. Further recommendations as per clinical course of the patient DVT prophylaxis: no Subcutaneous heparin GI Prophylaxis: Ppi PT/OT: Subacute rehab versus home care Prognosis is guarded Possible discharge in 24-48 hours
[2023-06-04 13:41] LABS: African American GFR (CKD) 20 (>60 ml/min/1.73 sqM); Anion Gap 9 mmol/L; Blood Urea Nitrogen 66 mg/dL (7-17); Calcium 8.1 mg/dL (8.4-10.2); Carbon Dioxide 19 mmol/L (22-30); Chloride 103 mmol/L (98-107); Glucose 108 mg/dL (74-99); Non-African American GFR(CKD) 18 (>60 ml/min/1.73 sqM); Potassium 4.4 mmol/L (3.5-5.1); Sodium 131 mmol/L (137-145)
--- NOTE | 2023-06-04 16:43 | P.PN ---
Subjective Progress Note Date: 06/04/23 Principal diagnosis: Hepatic encephalopathy This is a pleasant 72-year-old female who presented to the emergency department with confusion and complaints of vomiting. Patient has a history of liver cirrhosis and follows with [facility]. Patient does not recall unde rlying etiology of cirrhosis. She has a poor historian. Patient was admitted just a month ago with hepatic encephalopathy due to not taking her lactulose. At that time her daughter was also at the bedside who she lives with and states that her mom just will not take it and refuses to take it at times. Patient came in with pneumonia level of 128. Her repeat ammonia level from 06/01/2023 was 25. Patient also gets a regular paracentesis she states once a month done in [place]. Last paracentesis was here on 05/30/2023 was 7.5 L removed. Home medications include iron, Lasix 20 mg daily lactulose and Aldactone 50 mg twice a day. Also during her hospitalization she had coffee-ground emesis and bloody bowel movement. The patient states she only had the one. She is scheduled for EGD and colonoscopy today with Dr. Baeza. Patient currently denies any abdominal pain, nausea or vomiting. States she only had 1 bowel movement that was bloody. Patient is alert and in no acute distress. Labs Sodium 130 potassium 3.4 B1 62 creatinine 2.56, total bilirubin 1.2 AST 18 AOT 15 alkaline phosphatase 68 06/04/2023 Patient seen and examined today as a follow-up. Patient continues with improved mentation. Patient had 3 bowel movements yesterday to today. Denies any abdominal pain, nausea or vomiting. Yesterday patient underwent upper and lower endoscopy with Dr. Baeza. Upper endoscopy findings reported as gastritis without bleeding, diaphragmatic hiatal hernia. Colonoscopy findings reported as colitis, transverse colon adenoma, proctitis with bleeding. Nephrology follow ing for acute on chronic kidney injury, recommend holding Lasix at this time and continuing with midodrine.. BUN 66 creatinine 2.6 Objective - Vital Signs Vital signs: Vital Signs Temp 98.1 F 06/04/23 08:00 Pulse 72 06/04/23 08:00 Resp 18 06/04/23 08:00 BP 114/73 06/04/23 08:00 Pulse Ox 99 06/04/23 08:00 FiO2 Intake & Output 06/03/23 06/04/23 06/04/23 18:59 06:59 18:59 Intake Total 530 440 270 Output Total 201 2 101 Balance 329 438 169 Intake: IV 200 Oral 330 440 270 Output: Urine 200 100 Stool 1 2 1 Other: Voiding Method Diaper Diaper Diaper External Catheter External Catheter External Catheter # Voids 2 2 # Bowel Movements 1 - Exam General appearance: The patient is alert, oriented, appears in no acute distress. HET: Head is normocephalic and atraumatic. Conjunctiva pink. Sclera anicteric. Neck: Supple without lymphadenopathy. Abdomen: Soft, nontender, nondistended with bowel sounds. No guarding or rigidity. Extremities: Normal skin color and turgor. No pedal edema Skin: No rashes, no jaundice Neurological: No focal deficits. Alert and oriented. - Labs CBC & Chem 7: 06/01/23 09:04 06/04/23 12:22 Assessment and Plan (1) Hepatic encephalopathy Narrative/Plan: Narrative/Plan: This is a 72-year-old female with a past medical history of cirrhosis of the liver, unknown cause. She follows with a specialist out a [facility]. She had a liver biopsy done 02/08/2022 with specimen reporting consistent with cirrhosis. She is supposed to be taking lactulose 3 times a day however she states she does not like and does not take it at home. Elevated ammonia secondary to underlying cirrhosis of the liver and secondary to medication noncompliance. Discussed with patient importance of taking lactulose, will be scheduled as ordered per home meds 20 g 3 times a day. Current Visit: Yes Status: Acute Code(s): K76.82 - HEPATIC ENCEPHALOPATHY SNOMED Code(s): 13889368 (2) Chronic kidney disease Current Visit: Yes Status: Acute Code(s): N18.9 - CHRONIC KIDNEY DISEASE, UNSPECIFIED SNOMED Code(s): 750322872 (3) Cirrhosis of liver Current Visit: No Status: Acute Code(s): K74.60 - UNSPECIFIED CIRRHOSIS OF LIVER SNOMED Code(s): 25935542 (4) Ascites Current Visit: Yes Status: Acute Code(s): R18.8 - OTHER ASCITES SNOMED Code(s): 872096197 Plan: 1. Continue supportive care 2. Continue lactulose 20 g by mouth 3 times a day, this needs to be scheduled and taken daily to have 3-4 bowel movements a day 3. Continue with recommendations on diuretics per nephrology 4. Patient is status post paracentesis 5. Discussed importance with patient on medication compliance with her lactulose, patient was recently hospitalized for hepatic encephalopathy due to not taking her medications and continues not to take her medication as directed. 6. Will add xifaxin 550 mg BID Thank you for this consultation, patient is cleared for discharge from gastroenterology once otherwise medically stable. We will sign off at this time. Dr. Alexsander Izaguirre I agree with the dictator's note, documented as a scribe by Tiara Rincon.
[2023-06-04] MEDS: LACTATED RINGERS 1,000 ML IV SCH ×2 (19:50→21:16)
[2023-06-05] MEDS: metroNIDAZOLE-NS PMX 500 MG in SALINE 1 100ML.BAG IVPB SCH ×3 (04:32→19:44)
[2023-06-05] MEDS: MIDODRINE 5 MG TAB PO SCH ×3 (06:27→19:43)
[2023-06-05] MEDS: PANTOPRAZOLE 40 MG TABLET PO SCH (06:27)
--- NOTE | 2023-06-05 08:06 | P.PN ---
Subjective Progress Note Date: 06/04/23 CHIEF COMPLAINT: GI bleed HISTORY OF PRESENT ILLNESS: The patient is a 72-year-old female with anemia and GI bleed with hepatorenal syndrome. She is status post upper and lower endoscopy. No reports of bleeding. She's tolerating diet. No abdominal pain. ROS: No reports of nausea and vomiting. No fevers or chills. No new chest pain. No productive sputum PHYSICAL EXAM: VITAL SIGNS: Reviewed CONSTITUTIONAL: Well developed and in no acute distress. EYES: Conjuctivae without sclera icterus. Extraocular movements grossly intact. HEAD, EARS, NOSE, THROAT: Moist buccal mucosa. Head is atraumatic, normocephalic. Hears conversational speech. No nasal drainage. RESPIRATORY: Non-labored respirations and equal bilateral excursions. CARDIOVASCULAR: Palpable 2+ radial pulses. ABDOMEN: Nontender. MUSCULOSKELETAL: No gross deformity of the lower extremities noted. No clubbing. No cyanosis. SKIN: Good skin turgor. Well perfused. NEUROLOGIC: Cranial nerves II through XII grossly intact. No focal or lateralizing signs. PSYCH: Appropriate affect. Alert and oriented to person, place and time. CLINICAL LABS: Reviewed. No new hemoglobin. ASSESSMENT: 1. Anemia 2. GI bleed 3. Hepatic renal syndrome 4. Proctitis with colitis PLAN: 1. Recommend antibiotics for proctitis, Flagyl 500 mg 3 times a day 2. Diet as tolerated Objective - Vital Signs Vital signs: Vital Signs Temp 98.2 F 06/05/23 04:00 Pulse 60 06/05/23 04:00 Resp 16 06/05/23 04:00 BP 100/63 06/05/23 04:00 Pulse Ox 98 06/05/23 04:00 FiO2 Intake & Output 06/04/23 06/05/23 06/05/23 18:59 06:59 18:59 Intake Total 520 Output Total 452 Balance 68 Intake: Oral 520 Output: Urine 450 Stool 2 Other: Voiding Method Diaper Diaper External Catheter External Catheter # Voids 1 1 # Bowel Movements 1 1 - Labs CBC & Chem 7: 06/01/23 09:04 06/04/23 12:22 Labs: Abnormal Lab Results - Last 24 Hours (Table) 06/04/23 Range/Units 12:22 Sodium 131 L (137-145) mmol/L Carbon Dioxide 19 L (22-30) mmol/L BUN 66 H (7-17) mg/dL Creatinine 2.63 H (0.52-1.04) mg/dL Glucose 108 H (74-99) mg/dL Calcium 8.1 L (8.4-10.2) mg/dL
[2023-06-05 08:55] LABS: African American GFR (CKD) 20 (>60 ml/min/1.73 sqM); Anion Gap 8 mmol/L; Blood Urea Nitrogen 64 mg/dL (7-17); Carbon Dioxide 21 mmol/L (22-30); Chloride 106 mmol/L (98-107); Glucose 117 mg/dL (74-99); Non-African American GFR(CKD) 18 (>60 ml/min/1.73 sqM); Potassium 3.8 mmol/L (3.5-5.1); Sodium 135 mmol/L (137-145)
[2023-06-05 09:32] VITALS: RESP 18; TEMP 98
[2023-06-05] MEDS: SPIRONOLACTONE 25 MG TAB PO SCH (09:33)
[2023-06-05] MEDS: RIFAXIMIN 550 MG TABLET PO SCH (09:33)
[2023-06-05] MEDS: FUROSEMIDE 20 MG TAB PO SCH (09:33)
[2023-06-05] MEDS: LACTULOSE 20 GM/30 ML CUP PO SCH ×2 (09:33→19:43)
[2023-06-05] MEDS: METOPROLOL TARTRATE 12.5 MG TAB PO SCH (09:33)
[2023-06-05] MEDS: SODIUM BICARBONATE TAB 650 MG TAB PO SCH ×2 (09:33→19:43)
[2023-06-05] MEDS: FERROUS SULFATE 325 MG TAB PO SCH (12:35)
[2023-06-05 13:01] VITALS: BP 94/55; PULSE 62
--- NOTE | 2023-06-05 13:07 | P.PN ---
Subjective Patient is seen for follow-up for acute kidney injury. She has underlying liver cirrhosis and was admitted with mental status changes from hepatic encephalopathy. Mentation has improved. Serum creatinine had increased to about 2.5 mg/dL from previous reading of about 1.4-1.5 about 3 weeks ago. Blood pressure had been significantly low with systolic at 92-93 mmHg. Now improved. Maintained on midodrine. Patient is voiding on her own. Creatinine staying at around 2.6 mg/dL. No significant complaints today. Objective - Vital Signs Vital signs: Vital Signs Temp 98.0 F 06/05/23 08:00 Pulse 62 06/05/23 12:00 Resp 18 06/05/23 12:00 BP 94/55 06/05/23 12:00 Pulse Ox 99 06/05/23 12:00 FiO2 Intake & Output 06/04/23 06/05/23 06/05/23 18:59 06:59 18:59 Intake Total 520 358 Output Total 452 1 Balance 68 357 Intake: Oral 520 358 Output: Urine 450 Stool 2 1 Other: Voiding Method Diaper Diaper Diaper External Catheter External Catheter External Catheter # Voids 1 1 # Bowel Movements 1 1 - Exam Patient is awake, comfortable, no acute distress Examination of the heart S1 and S2 Examination of the lungs bilateral breath sounds are heard Abdomen is soft nontender Examination lower extremity shows no significant edema HEALTHCARE MARKET CONSULTANT exam grossly intact. - Labs CBC & Chem 7: 06/01/23 09:04 06/05/23 07:39 Labs: Abnormal Lab Results - Last 24 Hours (Table) 06/04/23 06/05/23 Range/Units 12:22 07:39 Sodium 131 L 135 L (137-145) mmol/L Carbon Dioxide 19 L 21 L (22-30) mmol/L BUN 66 H 64 H (7-17) mg/dL Creatinine 2.63 H 2.62 H (0.52-1.04) mg/dL Glucose 108 H 117 H (74-99) mg/dL Calcium 8.1 L 8.0 L (8.4-10.2) mg/dL Assessment and Plan Assessment: 1. Acute kidney injury most associated with hypotension. Blood pressure has now improved. Urine output is not accurately charted. UA is unremarkable. Ultrasound on 05/13/2023 showed no evidence of obstruction. 2. Mental status changes secondary to hepatic encephalopathy currently improved 3. Liver cirrhosis, etiology not known. Being followed at [facility] 4. Thrombocytopenia associated with chronic liver disease 5. Anemia rule out iron deficiency 6. Hypokalemia secondary to diarrhea with lactulose and decrease oral intake 7. Hyponatremia secondary to liver cirrhosis Plan: Continue with midodrine Continue with sodium bicarb as well May continue with current dose of Lasix Okay to discharge patient. Repeat labs as outpatient in 3-4 days. Follow-up as outpatient with nephrology in about 1-2 weeks.
--- NOTE | 2023-06-05 21:47 | P.DS ---
Providers Date of admission: 05/30/23 02:10 Attending physician: Larry Shea Consults: 05/30/23 07:46 Consult Physician Urgent Consulting Provider: Paulina Baeza Consult Reason/Comments: Positive occult, bloody stools Do you want consulting provider notified?: Yes 06/03/23 11:22 Consult Physician Routine Consulting Provider: Milan Ron Consult Reason/Comments: loraine Do you want consulting provider notified?: Yes Primary care physician: Danielito Perez Hospital Course: Diagnoses: Proctitis and sigmoid Colitis Hepatic encephalopathy, improved Decompensated liver cirrhosis of unknown causes, improved noncompliance to treatment Acute kidney disease on chronic kidney disease Bloody stool with anemia, secondary to proctatitis Erosive esophagitis and moderate gastritis Mild hyponatremia improvement Hospital course: This is a 72-year-old patient, follows with Dr. Perez. Also follow-up with a geothermal heat pump machinist out of [facility]. Patient is brought to the ER with increasing lethargy and confusion. Distended abdomen. More lethargic. Patient is a known case of cirrhosis of unknown causes and there was issue about adherence to her medication. Patient found to have acute kidney injury and anemia. Also she was admitted for hyponatremia and her sodium improved up to 1:30 sodium was 123 on admission. Mentation is improved at baseline after adequate lactulose and rifaximin and titrated to bowel movement 3-4 per day, patient was instructed with the same and she agrees. I ammonia level came back to normal. Surgical team also evaluated the patient and she underwent EGD/colonoscopy found to have prostatitis and sigmoid colitis, surgery team started patient on Flagyl Kimberly patient received 3 days in the hospital and she will be discharged on 7 more days to finish 10 day course of antibiotic, Patient denies abdominal pain diarrhea or vomiting upon discharge and she tolerates that well. Public Health Aide also on the case, her creatinine remains stable 2.5-2.6 over the last 3 days. Patient is off IV fluids. Patient also appeared for discharge by infrastructure architect. Today patient was comfortable in bed, she had a good appetite eating her meals. She denies any specific symptoms. No abdominal pain or distention. No confusion. No vomiting or bleeding. Patient agrees to go home today. Physical therapist recommended subacute rehab however patient and daughter declined and they want her to go home, home health care was ordered for her. Patient was cleared for discharge by all consultants including surgery team, GI team, infrastructure architect. Problems and management plan were discussed with the patient and he verbalized understanding and acceptance Patient was found stable and can be discharged home in guarded prognosis however he needs follow-up as an outpatient. Patient was instructed to follow up with PCP Dr. Perez within one week and patient agrees Patient was instructed to follow up with GI Dr. Izaguirre in [address] Coles/Dr. Ron in [address] Baeza in 7-10 days and she agrees to call and make her Physical exam -Gen: patient is a AAOx3, no distress. Generally weak CVS: S1-S2, RRR, no murmur Lungs: B/L CTA, no wheezing Abdomen: soft, no distention, no tenderness, positive bowel sounds Extremity: no leg edema or induration Time spent more than 35 minutes Patient Condition at Discharge: Stable Plan - Discharge Summary Discharge Rx Participant: Yes New Discharge Prescriptions: New Lactulose [Cephulac] 20 gm PO TID #2700 ml metroNIDAZOLE [Flagyl] 500 mg PO TID 7 Days #21 tab Rifaximin [Xifaxan] 550 mg PO BID #60 tab Sodium Bicarbonate Tab 650 mg PO TID #90 tab Metoprolol Tartrate [Lopressor] 12.5 mg PO BID #60 tab Continue Omeprazole [PriLOSEC] 20 mg PO DAILY Midodrine [ProAmatine] 5 mg PO AC-TID #90 tab Ondansetron Odt [Zofran ODT] 4 mg PO Q8H PRN PRN Reason: Nausea And Vomiting Furosemide [Lasix] 20 mg PO DAILY 30 Days #30 tab Ferrous Sulfate [Iron (65 MG Elemental)] 325 mg PO MOWEFR Magnesium 200 mg PO DAILY Spironolactone [Aldactone] 50 mg PO BID 30 Days #120 tab Discontinued Lactulose 20 gm PO TID PRN PRN Reason: Constipation Metoprolol Tartrate [Lopressor] 50 mg PO DAILY Loperamide [Imodium] 2 mg PO DAILY PRN #0 PRN Reason: Diarrhea Discharge Medication List Omeprazole [PriLOSEC] 20 mg PO DAILY 06/15/19 [History] Ferrous Sulfate [Iron (65 MG Elemental)] 325 mg PO MOWEFR 01/10/22 [History] Magnesium 200 mg PO DAILY 05/09/23 [History] Midodrine [ProAmatine] 5 mg PO AC-TID #90 tab 05/16/23 [Rx] Spironolactone [Aldactone] 50 mg PO BID 30 Days #120 tab 05/16/23 [Rx] Ondansetron Odt [Zofran ODT] 4 mg PO Q8H PRN 05/30/23 [History] Furosemide [Lasix] 20 mg PO DAILY 30 Days #30 tab 06/05/23 [Rx] Lactulose [Cephulac] 20 gm PO TID #2700 ml 06/05/23 [Rx] Metoprolol Tartrate [Lopressor] 12.5 mg PO BID #60 tab 06/05/23 [Rx] Rifaximin [Xifaxan] 550 mg PO BID #60 tab 06/05/23 [Rx] Sodium Bicarbonate Tab 650 mg PO TID #90 tab 06/05/23 [Rx] metroNIDAZOLE [Flagyl] 500 mg PO TID 7 Days #21 tab 06/05/23 [Rx] Follow up Appointment(s)/Referral(s): Danielito Perez MD [Primary Care Provider] - 1-2 days (Please make a follow-up with your primary doctor) Paulina Baeza MD [STAFF PHYSICIAN] - 1 Week (Please make a follow-up with the general surgeon regarding your colonoscopy) Aparna Izaguirre MD [STAFF PHYSICIAN] - 10 Days (Please follow-up with the GI doctor, Dr. Izaguirre.) Milan Ron DO [STAFF PHYSICIAN] - 1 Week (Please make a follow-up with Dr. Ron, the infrastructure architect) Ambulatory/Diagnostic Orders: Basic Metabolic Panel [LAB.AMB] Location: None Selected Patient Instructions/Handouts: Hepatic Encephalopathy (DC) Activity/Diet/Wound Care/Special Instructions: heart healthy diet activity is restricted till you see your doctor Continue lactulose 20 g by mouth 3 times a day, this needs to be scheduled and taken daily to have 3-4 bowel movements a day Discharge Disposition: HOME WITH HOME HEALTH SERVICES
== END 2023-06-05 19:55 | disposition home health service (06) | DRG 432 ==
LOC: EC 21:39 → 4SSUR 05-30 02:10 → 3SCARD 05-30 07:07
PROVIDERS: ADMIT Hospitalist; ATTEND Hospitalist
PROC: 0W9G3ZZ Drainage of Peritoneal Cavity, Percutaneous Approach (ICD-10-PCS; principal; 2023-05-30)
PROC: 0DBL8ZX Excision of Transverse Colon, Via Natural or Artificial Opening Endoscopic, Diagnostic (ICD-10-PCS; 2023-06-03)
PROC: 0DJ08ZZ Inspection of Upper Intestinal Tract, Via Natural or Artificial Opening Endoscopic (ICD-10-PCS; 2023-06-03 11:05)
DX: K74.60 Unspecified cirrhosis of liver (principal); K76.7 Hepatorenal syndrome; K22.10 Ulcer of esophagus without bleeding; E87.1 Hypo-osmolality and hyponatremia; E72.4 Disorders of ornithine metabolism; R18.8 Other ascites; K76.6 Portal hypertension; N17.9 Acute kidney failure, unspecified; I95.89 Other hypotension; D63.1 Anemia in chronic kidney disease; Z28.310 Unvaccinated for COVID-19; K29.70 Gastritis, unspecified, without bleeding; D12.3 Benign neoplasm of transverse colon; D69.59 Other secondary thrombocytopenia; K62.89 Other specified diseases of anus and rectum; E88.09 Other disorders of plasma-protein metabolism, not elsewhere classified; K52.9 Noninfective gastroenteritis and colitis, unspecified; K76.82 Hepatic encephalopathy; Z91.199 Patient's noncompliance with other medical treatment and regimen due to unspecified reason; I25.10 Atherosclerotic heart disease of native coronary artery without angina pectoris; E87.6 Hypokalemia; K44.9 Diaphragmatic hernia without obstruction or gangrene; Z79.899 Other long term (current) drug therapy; Z86.010 Personal history of colon polyps; K64.8 Other hemorrhoids; Z88.1 Allergy status to other antibiotic agents; K21.9 Gastro-esophageal reflux disease without esophagitis; N18.9 Chronic kidney disease, unspecified; Z82.49 Family history of ischemic heart disease and other diseases of the circulatory system; Z85.42 Personal history of malignant neoplasm of other parts of uterus; Z90.710 Acquired absence of both cervix and uterus; Z91.148 Patient's other noncompliance with medication regimen for other reason; Z96.649 Presence of unspecified artificial hip joint
CPT/HCPCS: 36415; 43235; 45385; 49083; 71046; 80048; 80053; 80076; 81001; 82140; 82272; 83605; 83735; 83880; 85025; 85027; 85610; 85730; 88305; 93005; 94760; 96374; 99285

== ENCOUNTER 2023-06-16 07:40 | Emergency (ER) | payer MEDICARE ==
[2023-06-16 07:47] VITALS: BP 106/64; PULSE 61; RESP 18; TEMP 98.2
--- NOTE | 2023-06-16 08:22 | ED ---
General Adult HPI - General Chief complaint: Recheck/Abnormal Lab/Rx Stated complaint: Post op complication Time Seen by Provider: 06/16/23 07:57 Source: patient Mode of arrival: ambulatory Limitations: no limitations - History of Present Illness Initial comments: Dictation was produced using PowerMag dictation software. please excuse any grammatical, word or spelling errors. Chief Complaint: 72-year-old female with leaking paracentesis site History of Present Illness: 72-year-old female she is hospice. She had a paracentesis drain placed at [facility] 3 days ago. Since yesterday her paracentesis it has been leaking. Patient has no other complaints. The ROS documented in this emergency department record has been reviewed and confirmed by me. Those systems with pertinent positive or negative responses have been documented in the HPI. All other systems are other negative and/or noncontributory. - Related Data Home Medications Medication Instructions Recorded Confirmed Omeprazole [PriLOSEC] 20 mg PO DAILY 06/15/19 05/30/23 Ferrous Sulfate [Iron (65 MG 325 mg PO MOWEFR 01/10/22 05/30/23 Elemental)] Magnesium 200 mg PO DAILY 05/09/23 05/30/23 Ondansetron Odt [Zofran ODT] 4 mg PO Q8H PRN 05/30/23 05/30/23 Previous Rx's Medication Instructions Recorded Midodrine [ProAmatine] 5 mg PO AC-TID #90 tab 05/16/23 Spironolactone [Aldactone] 50 mg PO BID 30 Days #120 tab 05/16/23 Furosemide [Lasix] 20 mg PO DAILY 30 Days #30 tab 06/05/23 Lactulose [Cephulac] 20 gm PO TID #2700 ml 06/05/23 Metoprolol Tartrate [Lopressor] 12.5 mg PO BID #60 tab 06/05/23 Rifaximin [Xifaxan] 550 mg PO BID #60 tab 06/05/23 Sodium Bicarbonate Tab 650 mg PO TID #90 tab 06/05/23 metroNIDAZOLE [Flagyl] 500 mg PO TID 7 Days #21 tab 06/05/23 Allergies Allergy/AdvReac Type Severity Reaction Status Date / Time hydromorphone [From Dilaudid] Allergy Severe Rash/Hives Verified 06/16/23 07:47 cephalexin [From Keflex] Allergy Rash/Hives Verified 06/16/23 07:47 guaifenesin [From Entex LA] Allergy Rash/Hives Verified 06/16/23 07:47 levofloxacin [From Levaquin] Allergy Rash/Hives Verified 06/16/23 07:47 phenylephrine [From Entex LA] Allergy Rash/Hives Verified 06/16/23 07:47 phenylpropanolamine Allergy Rash/Hives Verified 06/16/23 07:47 [From Entex LA] Review of Systems ROS Statement: Those systems with pertinent positive or pertinent negative responses have been documented in the HPI. ROS Other: All systems not noted in ROS Statement are negative. Past Medical History Past Medical History: Cancer, GERD/Reflux, Hypertension, Liver Disease Additional Past Medical History / Comment(s): feet swelling, hx. endometrial cancer 2001, frequent diarrhea for months, hx. colon polyps, slight murmur per pt-no tx. for History of Any Multi-Drug Resistant Organisms: None Reported Past Surgical History: Cholecystectomy, Hysterectomy, Joint Replacement, Orthopedic Surgery Additional Past Surgical History / Comment(s): colonoscopies, maryellen. hip replaced, left wrist surg., left foot surg., arthroscopy left knee, right knee surg, large volume paracentesis Past Anesthesia/Blood Transfusion Reactions: No Reported Reaction Additional Past Anesthesia/Blood Transfusion Reaction / Comment(s): usually slow to wake up Past Psychological History: No Psychological Hx Reported Smoking Status: Never smoker Past Alcohol Use History: None Reported Past Drug Use History: None Reported - Past Family History Mother Family Medical History: No Reported History Father Family Medical History: Coronary Artery Disease (CAD) General Exam - General Exam Comments Initial Comments: PHYSICAL EXAM: General Impression: Alert and oriented x3, not in acute distress HEENT: Normocephalic atraumatic, extra-ocular movements intact, pupils equal and reactive to light bilaterally, mucous membranes moist. Cardiovascular: Heart regular rate and rhythm Chest: Able to complete full sentences, no retractions, no tachypnea Abdomen: abdomen soft, non-tender, non-distended, no organomegaly, left lower quadrant paracentesis drainage site without any active drainage, dressing saturated with serous fluid Musculoskeletal: Pulses present and equal in all extremities, no peripheral edema Motor: no focal deficits noted Neurological: CN II-XII grossly intact, no focal motor or sensory deficits noted Skin: Intact with no visualized rashes Psych: Normal affect and mood Limitations: no limitations Course Vital Signs 06/16/23 07:42 Temperature 98.2 F Pulse Rate 61 Respiratory 18 Rate Blood Pressure 106/64 O2 Sat by Pulse 95 Oximetry - Reevaluation(s) Reevaluation #1: 06/16/23 08:[address] Snyder, to call for Dr. Watts physicians have placed a drain recommended changing the dressing and considering placing a ostomy bag over the catheter already collect drainage. They will follow up with patient over the next couple days to help troubleshoot leakage. Medical Decision Making - Medical Decision Making Was pt. sent in by a medical professional or institution (, ANNE, BUILDING PERFORMANCE SPECIALIST, urgent care, hospital, or senior care...) When possible be specific @ -No Did you speak to anyone other than the patient for history (EMS, parent, family, police, friend...)? What history was obtained from this source @ -No Did you review nursing and triage notes (agree or disagree)? Why? @ -I reviewed and agree with nursing and triage notes Were old charts reviewed (outside hosp., previous admission, EMS record, old EKG, old radiological studies, urgent care reports/EKG's, senior care records)? Report findings @ -No old charts were reviewed Differential Diagnosis (chest pain, altered mental status, abdominal pain women, abdominal pain men, vaginal bleeding, musculoskeletal, weakness, fever, dyspnea, syncope, headache, dizziness, GI bleed, back pain, seizure, CVA, palpatations, mental health)? @ -not applicable EKG interpreted by me (3pts min.). @ -None done X-rays interpreted by me (1pt min.). @ -None done CT interpreted by me (1pt min.). @ -None done U/S interpreted by me (1pt. min.). @ -None done What testing was considered but not performed or refused? (CT, X-rays, U/S, labs)? Why? @ -None What meds were considered but not given or refused? Why? @ -None Did you discuss the management of the patient with other professionals (professionals i.e. , ANNE, BUILDING PERFORMANCE SPECIALIST, lab, RT, psych nurse, sr. social media & mobile manager, taker away, teacher, marketing and communications officer, case monitor)? Give summary @ -See above Was smoking cessation discussed for >3mins.? @ -No Was critical care preformed (if so, how long)? @ -No] Were there social determinants of health that impacted care today? How? (Homelessness, low income, unemployed, alcoholism, drug addiction, transportation, low edu. Level, literacy, decrease access to med. care, halfway, rehab)? @ -[No] Was there de-escalation of care discussed even if they declined (Discuss DNR or withdrawal of care, Hospice)? DNR status @ -[No] What co-morbidities impacted this encounter? (DM, HTN, Smoking, COPD, CAD, Cancer, CVA, ARF, Chemo, Hep., AIDS, mental health diagnosis, sleep apnea, morbid obesity)? @ -[None] Was patient admitted / discharged? Hospital course, mention meds given and route, prescriptions, significant lab abnormalities, going to OR and other pertinent info. @ -72-year-old female presents with leakage from paracentesis drainage. Vital signs upon arrival are within acceptable limits. Case discussed with interventional radiologist at [facility]. Dressing was replaced. Patient will be discharged Undiagnosed new problem with uncertain prognosis? @ -[No] Drug Therapy requiring intensive monitoring for toxicity (Heparin, Nitro, Insulin, Cardizem)? @ -[No] Were any procedures done? @ -[No] Diagnosis/symptom? Acute, or Chronic, or Acute on Chronic? Uncomplicated (without systemic symptoms) or Complicated (systemic symptoms)? @ -1. Leaking surgical site Side effects of treatment? @ -[No] Exacerbation, Progression, or Severe Exacerbation? @ -[No] Poses a threat to life or bodily function? How? (Chest pain, [place], [place], pneumonia, PE, COPD, DKA, ARF, appy, cholecystitis, CVA, Diverticulitis, Homicidal, Suicidal, threat to staff... and all critical care pts) @ -[No] Disposition Clinical Impression: Postoperative leak Disposition: HOME SELF-CARE Condition: Good Is patient prescribed a controlled substance at d/c from ED?: No Referrals: Danielito Perez MD [Primary Care Provider] - 1-2 days Time of Disposition: 10:24
== END 2023-06-16 11:45 | disposition home or self-care (01) ==
LOC: EC 07:40
DX: K91.89 Other postprocedural complications and disorders of digestive system (principal); K21.9 Gastro-esophageal reflux disease without esophagitis; I10 Essential (primary) hypertension; Z79.899 Other long term (current) drug therapy; Z88.6 Allergy status to analgesic agent; Z88.1 Allergy status to other antibiotic agents; Z88.8 Allergy status to other drugs, medicaments and biological substances; Z88.5 Allergy status to narcotic agent; Z90.49 Acquired absence of other specified parts of digestive tract
CPT/HCPCS: 99283